=== PATIENT | female | born 1975 | race Caucasian/White ===

== ENCOUNTER 2020-03-10 15:38 | Outpatient (REF) | payer OTHER, SELFPAY ==
--- NOTE | 2020-03-10 | MM_ITS ---
EXAMINATION: MM SCREENING DIGITAL BREAST TOMOSYNTHESIS, BILATERAL CLINICAL INFORMATION: Screening. Asymptomatic. The lifetime risk of breast cancer based on the Tyrer-Cuzick Model is 9%. COMPARISON: Mammography: 07/02/2018, 06/17/2017 TECHNIQUE: Digital breast tomosynthesis is performed in both the craniocaudal and mediolateral oblique views along with computer-aided detection (CAD). Synthesized 2D images are generated from the tomosynthesis. FINDINGS: There are scattered areas of fibroglandular density (ACR BI-RADS breast composition Category b). There are no significant masses, abnormal calcifications, or other abnormalities. The axilla and skin contours are unremarkable. No significant changes. IMPRESSION: No mammographic evidence of malignancy. ASSESSMENT: BI-RADS 1: Negative RECOMMENDATION: Routine annual mammography screening. This patient's information was entered into a reminder system with a target due date for their next mammogram.
[2020-03-11 09:58] LABS: CT PCR NOT DETECTED (Not Detect.); NG PCR NOT DETECTED (Not Detect.)
== END 2020-03-10 15:39 | disposition home or self-care (01) ==
LOC: HO.MAMMO 15:38
PROVIDERS: Obstetrics & Gynecology; PCP Family Medicine; Visit Provider Family Medicine
DX: Z01.419 Encounter for gynecological examination (general) (routine) without abnormal findings (principal); Z12.31 Encounter for screening mammogram for malignant neoplasm of breast; K21.9 Gastro-esophageal reflux disease without esophagitis; J44.9 Chronic obstructive pulmonary disease, unspecified; Z11.3 Encounter for screening for infections with a predominantly sexual mode of transmission
CPT/HCPCS: 36415; 77063; 77067; 78014; 87491; 87591

== ENCOUNTER 2020-03-22 09:40 | Outpatient (REF) | payer OTHER, SELFPAY ==
[2020-03-22 12:14] LABS: Alanine Aminotransferase 20 U/L (0-31); Albumin Level 4.1 g/dL (3.5-5.0); Alkaline Phosphatase 67 U/L (39-117); Aspartate Amino Transferase 13 U/L (5-31); Bilirubin Direct 0.2 mg/dL (0.0-0.5); Bilirubin Total 0.5 mg/dL (0.0-1.0); Cholesterol 267 mg/dL; HDL Cholesterol 37 mg/dL; LDL Cholesterol Calculated 176 mg/dl; Total Protein 6.9 g/dL (6.5-8.0); Triglycerides 271 mg/dL
[2020-03-22 12:27] LABS: TSH reflex Free T4 0.98 mIU/mL (0.32-4.0)
[2020-03-22 15:10] LABS: Anion Gap 12 (12-20); Blood Urea Nitrogen 8 mg/dL (9-16); Calcium 8.9 mg/dL (8.4-10.2); Carbon Dioxide 25 mmol/L (22-29); Chloride 104 mmol/L (96-108); Estimated Glomerular Filt Rate > 60; Glucose Random 101 mg/dL (60-115); Potassium 4.3 mmol/l (3.3-5.1); Sodium 137 mmol/L (135-145)
== END 2020-03-22 09:41 | disposition home or self-care (01) ==
LOC: HO.WFDLDS 09:40
PROVIDERS: Visit Provider Family Medicine
DX: Z13.220 Encounter for screening for lipoid disorders (principal)
CPT/HCPCS: 80053; 80061; 80076; 84443

== ENCOUNTER → 2020-12-07 13:44 | Outpatient (BNVA) | payer OTHER, SELFPAY | PROVIDERS: PCP Family Medicine; Visit Provider Internal Medicine Pulmonary Disease | DX: J44.9 Chronic obstructive pulmonary disease, unspecified (principal) ==

== ENCOUNTER 2020-12-18 19:19 | Emergency (ER) | payer OTHER, SELFPAY ==
--- NOTE | 2020-12-18 | ECG_ITS ---
Test Reason : chest pain Blood Pressure : / mmHG Vent. Rate : 076 BPM Atrial Rate : 076 BPM P-R Int : 128 ms QRS Dur : 084 ms QT Int : 392 ms P-R-T Axes : 054 007 009 degrees QTc Int : 441 ms Normal sinus rhythm Normal ECG No previous ECGs available Referred By: Generic ED Physician Electronically Signed By:Stephan Oliver
--- NOTE | ~2020-12-18 | XR_ITS ---
EXAMINATION: XR CHEST CLINICAL INFORMATION: Chest pain COMPARISON: CT chest 12/10/2019 and 11/18/2018 TECHNIQUE: 2 views of the chest were obtained. FINDINGS: No significant abnormality is noted involving the heart, lungs, mediastinum, bony thorax or soft tissues. Thoracic kyphosis is again seen with mid to lower thoracic vertebral body mild anterior wedging. XR/XR chest 2V IMPRESSION: Unremarkable examination.
[2020-12-18 19:21] VITALS: BP 141/76; PULSE 81; RESP 18; TEMP 36.4; O2SAT 99; BMI 29.2
[2020-12-18 20:38] LABS: Basophils Absolute Auto 0.1 X10*3/uL (0.0-0.2); Basophils Percent Auto 0.5 % (0-2); Eosinophils Absolute Auto 0.3 X10*3/uL (0.0-0.4); Eosinophils Percent Auto 1.7 % (0-4); Hematocrit 38.7 % (37-47); Hemoglobin 13.6 g/dl (12.0-16.0); Imm Gran Abs Auto 0.05 X10*3/uL (0.00-0.03); Imm Gran Pct Auto 0.3 % (0.0-0.4); Lymphocytes Absolute Auto 5.7 X10*3/uL (1.2-4.9); Lymphocytes Percent Auto 35.4 % (20-40); MANUAL DIFF FLAG SCAN; Mean Corpuscular HGB Conc 35.1 g/dl (31.0-35.0); Mean Corpuscular Hemoglobin 32.3 pg (27.0-33.0); Mean Corpuscular Volume 91.9 fL (80-98); Mean Platelet Volume 8.8 fL (9.4-12.3); Monocytes Percent Auto 6.2 % (2-11); Neutrophils Percent Auto 55.9 % (45-73); Platelet Count 392 X10*3/uL (160-400); Red Blood Count 4.21 X10*6/uL (4.20-5.50); Red Cell Distribution Width 12.4 % (11.0-16.0); SCAN SMEAR FLAG 1; White Blood Count 16.1 X10*3/uL (4.8-10.8)
[2020-12-18 20:44] LABS: Prothrombin Time 11.2 SEC (9.9-13.0)
[2020-12-18 20:55] LABS: SLIDE REVIEW VERIFIED
[2020-12-18 20:58] LABS: Anion Gap 14 (12-20); Blood Urea Nitrogen 9 mg/dL (9-16); Calcium 9.3 mg/dL (8.4-10.2); Carbon Dioxide 23 mmol/L (22-29); Chloride 106 mmol/L (96-108); Estimated Glomerular Filt Rate > 60; Glucose Random 92 mg/dL (60-115); Potassium 3.9 mmol/L (3.3-5.1); Sodium 139 mmol/L (135-145)
[2020-12-18 20:59] LABS: Magnesium 2.1 mg/dL (1.6-2.6)
[2020-12-18 21:04] LABS: Troponin-I High Sensitivity < 3.5 ng/L (<3.5-17.0)
--- NOTE | 2020-12-18 22:24 | ED.CHESTPAIN ---
HPI - Chest Pain General Chief Complaint: Chest Pain Stated Complaint: cp Time Seen by Provider: 12/18/20 22:05 Source: patient Mode of arrival: ambulatory Limitations: no limitations History of Present Illness HPI narrative: Patient comes emergency room complaining of intermittent chest pain. Patient states that she had sharp pain, substernal around noon, then again around 17:00. Patient states that between noon and 5 the pain was minimal but was still present. When she was in triage she still had chest discomfort but at this time patient is asymptomatic patient denies shortness of breath at this time, no diaphoresis. Patient denies taking medications/aspirin/nitroglycerin prior to arrival MD complaint: chest pain Related Data Home Medications Medication Instructions Recorded Confirmed epinephrine 0.3 mg/0.3 mL 0.3 mg IM ONCE PRN ea 10/05/20 injection, auto-injector Previous Rx's Medication Instructions Recorded fluoxetine 20 mg capsule 20 mg PO DAILY #30 cap 03/09/20 cyclobenzaprine 10 mg tablet 10 mg PO TID PRN 30 Days #90 tab 03/22/20 atorvastatin 20 mg tablet 20 mg PO DAILY 90 Days #90 tab 05/03/20 azithromycin 250 mg tablet See Rx Instructions PO .COMPLEX 5 12/07/20 Days #6 tab ipratropium 0.5 mg-albuterol 3 mg 3 ml INHALATION Q4-6H PRN 30 Days 12/07/20 (2.5 mg base)/3 mL nebulization #180 ml soln Allergies Allergy/AdvReac Type Severity Reaction Status Date / Time bee pollen [Bee Stings] Allergy Mild ANAPHYLAXIS Verified 12/07/20 13:51 Review of Systems Review of Systems: Constitutional : No Weight loss, No Fever, No Chills, No Night Sweats, No Fatigue, No Malaise ENT/Mouth : No Hearing loss, No Ear Pain, No Nasal Congestion, No Sinus Pain, No Hoarseness, No sore throat, No Rhinorrhea, No Swallowing Difficulty Eyes: No Eye Pain, No Swelling, No Redness, No Foreign Body, No Discharge, No Vision Changes Cardiovascular resolve chest pressure No SOB, No Dyspnea on Exertion, No Orthopnea, No Edema, No Palpitations Respiratory : No Cough, No Sputum, No Wheezing, No Smoke Exposure, No Dyspnea Gastrointestinal : No Nausea, No Vomiting, No Diarrhea, No Constipation, No abdominal Pain, No Hematochezia, No Melena Genitourinary : no irregular bleeding, No Dysuria, No Urinary Frequency, No Hematuria, No Urinary Incontinence, No Urgency, No Flank Pain, No Urinary Flow Changes, No Hesitancy Musculoskeletal : No joint pain, No Myalgias, No Joint Swelling Skin : No Skin Lesions, No rash Neuro : No Weakness, No Numbness, No Paresthesias, No Loss of Consciousness, No Dizziness, No Headache Psych : No Anxiety/Panic, No Depression, No SI/HI/AH/VH, No Social Issues, Heme/Lymph: No Bruising, No Bleeding,No Lymphadenopathy Endocrine : No Polyuria, No Polydipsia, No Temperature Intolerance [facility] Past Medical History Medical History COPD (chronic obstructive pulmonary disease) GERD (gastroesophageal reflux disease) History of depression Hypercholesterolemia Nicotine dependence Surgical History History of bunionectomy of both great toes History of endometrial ablation History of loop electrical excision procedure (LEEP) Hx of tubal ligation Family History Family History Father Hx of myocardial infarction Mother Hx of thyroid cancer Hx of cancer of lung Maternal Grandmother Hx of cancer of lung Maternal Grandfather History of prostate cancer Maternal Aunt Hx of cancer of uterus Paternal Grandmother History of colon cancer Social History Social History Alcohol intake: current Alcohol intake frequency: 3 or more drinks per day Alcohol type: beer Years Smoked: 30 Advance Directives: No Advance Directives Information Provided: No Patient : No Physical Exam Vital Signs: Vital Signs: Last Vital Signs Temp 97.6 F 12/18/20 19: Pulse 81 12/18/20 19: Resp 18 12/18/20 19: BP 141/76 H 12/18/20 19: Pulse Ox 99 12/18/20 19: Body Mass Index 29.2 Appearance: Alert. Oriented X3. No acute distress. Eyes: Pupils equal, round and reactive to light. ENT: Pharynx normal. Neck: Normal inspection. Neck supple. No lymph nodes noted. No crepitus CVS: Normal heart rate and rhythm. Pulses normal. Normal S1 and S2 Respiratory: No respiratory distress. Breath sounds normal. No Wheezing. No rales Abdomen: Soft and nontender. No rigidity. No distention. good BS x4 Skin: Skin warm and dry. Normal skin color. Normal skin turgor. Extremities: No lower extremity edema. No Lacerations. No Rash Neuro: Oriented X 3. No motor deficit. No sensory deficit. Moving all extermities. No slurred speech. Course Course Course Narrative: First troponin was obtained 8-1/2 hours after the onset of the symptoms. At this time, patient is symptomatic, troponin is negative, EKG shows no acute pathology. Per patient she has no cardiac disease history, only asthma and COPD. MDM - Chest Pain Lab Data Result diagrams: 12/18/20 20:30 12/18/20 20:30 Labs: Lab Results 12/18/20 12/18/20 12/18/20 Range/Units 20:30 20:30 20:30 WBC 16.1 H (4.8-10.8) X10*3/uL RBC 4.21 (4.20-5.50) X10*6/uL Hgb 13.6 (12.0-16.0) g/dl Hct 38.7 (37-47) % MCV 91.9 (80-98) fL MCH 32.3 (27.0-33.0) pg MCHC 35.1 H (31.0-35.0) g/dl RDW 12.4 (11.0-16.0) % Plt Count 392 (160-400) X10*3/uL MPV 8.8 L (9.4-12.3) fL Immature Gran % (Auto) 0.3 (0.0-0.4) % Neut % (Auto) 55.9 (45-73) % Lymph % (Auto) 35.4 (20-40) % [place] % (Auto) 6.2 (2-11) % Eos % (Auto) 1.7 (0-4) % Baso % (Auto) 0.5 (0-2) % Lymph # (Auto) 5.7 H (1.2-4.9) X10*3/uL [place] # (Auto) 1.0 (0.1-1.2) X10*3/uL Eos # (Auto) 0.3 (0.0-0.4) X10*3/uL Baso # (Auto) 0.1 (0.0-0.2) X10*3/uL Abs Immat Gran (auto) 0.05 H (0.00-0.03) X10*3/uL Absolute Neuts (auto) 9.0 H (2.0-8.3) X10*3/uL Absolute Nucleated RBC 0.000 (0.0-0.012) X10*3/uL Nucleated RBC % (auto) 0.0 (0.0-0.2) /100WBC Smear Tech's Comments VERIFIED PT 11.2 (9.9-13.0) SEC INR 1.0 (0.9-1.1) Sodium 139 (135-145) mmol/L Potassium 3.9 (3.3-5.1) mmol/L Chloride 106 (96-108) mmol/L Carbon Dioxide 23 (22-29) mmol/L Anion Gap 14 (12-20) BUN 9 (9-16) mg/dL Creatinine 0.77 (0.5-1.4) mg/dL Estim Creat Clear Calc 86.0 Estimated GFR > 60 Random Glucose 92 (60-115) mg/dL Calcium 9.3 (8.4-10.2) mg/dL Magnesium (1.6-2.6) mg/dL Troponin I High Sens (<3.5-17.0) ng/L 12/18/20 12/18/20 Range/Units 20:30 20:30 WBC (4.8-10.8) X10*3/uL RBC (4.20-5.50) X10*6/uL Hgb (12.0-16.0) g/dl Hct (37-47) % MCV (80-98) fL MCH (27.0-33.0) pg MCHC (31.0-35.0) g/dl RDW (11.0-16.0) % Plt Count (160-400) X10*3/uL MPV (9.4-12.3) fL Immature Gran % (Auto) (0.0-0.4) % Neut % (Auto) (45-73) % Lymph % (Auto) (20-40) % [place] % (Auto) (2-11) % Eos % (Auto) (0-4) % Baso % (Auto) (0-2) % Lymph # (Auto) (1.2-4.9) X10*3/uL [place] # (Auto) (0.1-1.2) X10*3/uL Eos # (Auto) (0.0-0.4) X10*3/uL Baso # (Auto) (0.0-0.2) X10*3/uL Abs Immat Gran (auto) (0.00-0.03) X10*3/uL Absolute Neuts (auto) (2.0-8.3) X10*3/uL Absolute Nucleated RBC (0.0-0.012) X10*3/uL Nucleated RBC % (auto) (0.0-0.2) /100WBC Smear Tech's Comments PT (9.9-13.0) SEC INR (0.9-1.1) Sodium (135-145) mmol/L Potassium (3.3-5.1) mmol/L Chloride (96-108) mmol/L Carbon Dioxide (22-29) mmol/L Anion Gap (12-20) BUN (9-16) mg/dL Creatinine (0.5-1.4) mg/dL Estim Creat Clear Calc Estimated GFR Random Glucose (60-115) mg/dL Calcium (8.4-10.2) mg/dL Magnesium 2.1 (1.6-2.6) mg/dL Troponin I High Sens < 3.5 (<3.5-17.0) ng/L Imaging Data Chest x-ray: Radiologist's impression: FINDINGS: No significant abnormality is noted involving the heart, lungs, mediastinum, bony thorax or soft tissues. Thoracic kyphosis is again seen with mid to lower thoracic vertebral body mild anterior wedging. XR/XR chest 2V IMPRESSION: Unremarkable examination. ECG Data ECG #1: Attestation: I personally reviewed and interpreted this ECG as follows: (Sinus rhythm, heart rate 76, nonspecific T-wave inversion in lead 3, no ST segment depression or elevation, QTC 441) Scores Heart Score History: -0- slightly suspicious ECG: -0- normal Age: -0- < or = 45 Risk factory: -1- 1 or 2 risk factors Troponin: -0- < or = normal limit Score: 1 Risk: 1.7% Discharge Plan Discharge Clinical Impression: Atypical chest pain Patient Disposition: Home, Self-Care Instructions: Chest Pain (ED) Additional Instructions: Please follow-up with your primary care physician tomorrow. If you have any worsening or new symptoms, please return to the emergency room or call 911 Prescriptions: No Action epinephrine 0.3 mg/0.3 mL auto-injector 0.3 mg IM ONCE PRNRF: 0 fluoxetine [Prozac] 20 mg capsule 20 mg PO DAILY Qty: 30 RF: 3 cyclobenzaprine 10 mg tablet 10 mg PO TID PRN (Reason: muscle spasm) 30 Days Qty: 90 RF: 1 atorvastatin 20 mg tablet 20 mg PO DAILY 90 Days Qty: 90 RF: 3 azithromycin 250 mg tablet See Rx Instructions PO .COMPLEX 5 Days Qty: 6 RF: 0 ipratropium-albuterol 0.5 mg-3 mg(2.5 mg base)/3 mL solution for nebulization 3 ml inhalation Q4-6H PRN (Reason: wheezing) 30 Days Qty: 180 RF: 6
== END 2020-12-18 22:48 | disposition home or self-care (01) ==
PROVIDERS: Emergency Provider Emergency Medicine
DX: R07.89 Other chest pain (principal); Z79.899 Other long term (current) drug therapy; Z87.891 Personal history of nicotine dependence
CPT/HCPCS: 36415; 71046; 80048; 83735; 84484; 85025; 85610; 93005; 99283

== ENCOUNTER 2020-12-25 12:50 | Outpatient (REF) | payer OTHER, SELFPAY ==
--- NOTE | 2020-12-25 15:17 | PFT_ITS ---
Forced vital capacity and FEV1 are normal. BUW90-86 is only slightly decreased. MVV normal. Post bronchodilator therapy, there is no significant change. Total lung capacity normal and residual volume is also normal. Diffusion capacity normal. CONCLUSION: Normal pulmonary function test. No evidence of obstructive or restrictive pulmonary disorder. MD LAURA Tompkins/DIANEL / [phone]
== END 2020-12-25 12:51 | disposition home or self-care (01) ==
LOC: HO.RESP 12:50
PROVIDERS: Visit Provider Internal Medicine Pulmonary Disease
DX: J44.9 Chronic obstructive pulmonary disease, unspecified (principal)
CPT/HCPCS: 94060; 94727; 94729

== ENCOUNTER 2021-01-18 09:39 | Outpatient (REF) | payer OTHER, SELFPAY ==
--- NOTE | ~2021-01-18 | CT_ITS ---
EXAMINATION: CT CHEST WITHOUT CONTRAST CLINICAL INFORMATION: Sporotrichosis. COMPARISON: Most recent chest radiograph dated 12/18/[address] chest dated 12/10/2019. TECHNIQUE: Multidetector volumetric CT imaging of the chest was done. Axial MIP volume rendering provided. Sagittal and coronal reformatted images were obtained. This CT examination was performed using dose optimization techniques as appropriate, variously including the following: *Automated exposure control *Adjustment of mA and/or kV according to patient size (this includes techniques or standardized protocols for targeted exams where dose is matched to indication/reason for exam; i.e. extremities or head) *Use of iterative reconstruction technique DLP: 140 mGy-cm FINDINGS: CATERING ASSOCIATE: Unremarkable. LUNGS: Redemonstration of diffuse faint bilateral ground-glass opacities, most prominent within the upper lobes and similar when compared to the prior CT. No new large confluent pulmonary nodule, soft tissue mass, or airspace consolidation. The central airways are patent. MEDIASTINUM: No cardiomegaly. No pericardial effusion. No thoracic aortic dilatation. No significant superior mediastinal or hilar lymphadenopathy. PLEURA: There is no pleural effusion. No pleural mass or thickening. AXILLA: No lymphadenopathy. UPPER ABDOMEN: Partially visualized right midpole 0.2 cm renal stone. Otherwise, the visualized upper abdominal structures are unremarkable. OSSEOUS STRUCTURES: Unremarkable. CT/CT chest wo con IMPRESSION: 1. Redemonstration of faint diffuse bilateral ground-glass opacities, similar when compared to the prior CT. Findings may represent respiratory bronchiolitis and can be seen in the setting of an infectious or inflammatory process. 2. No new large pulmonary nodule, mass, or airspace consolidation. 3. No lymphadenopathy.
== END 2021-01-18 09:40 | disposition home or self-care (01) ==
LOC: HO.CT 09:39
PROVIDERS: Visit Provider Internal Medicine Pulmonary Disease
DX: B42.9 Sporotrichosis, unspecified (principal)
CPT/HCPCS: 71250

== ENCOUNTER 2021-03-12 09:42 | Outpatient (REF) | payer OTHER, SELFPAY ==
[2021-03-12 16:47] LABS: CT PCR NOT DETECTED (Not Detect.); NG PCR NOT DETECTED (Not Detect.)
[2021-03-13 10:12] LABS: BV Int Neg Control Negative (Negative); BV Int Pos Control Positive (Positive)
[2021-03-15 17:05] LABS: HPV mRNA E6/E7 rflx Not Detected (Not Detected)
== END 2021-03-12 09:43 | disposition home or self-care (01) ==
LOC: HO.LAB 09:42
PROVIDERS: Advanced Practice Midwife; Visit Provider Advanced Practice Midwife
DX: Z01.419 Encounter for gynecological examination (general) (routine) without abnormal findings (principal); F17.200 Nicotine dependence, unspecified, uncomplicated; Z79.899 Other long term (current) drug therapy; Z20.2 Contact with and (suspected) exposure to infections with a predominantly sexual mode of transmission; Z86.018 Personal history of other benign neoplasm; Z98.890 Other specified postprocedural states; Z98.51 Tubal ligation status; Z71.89 Other specified counseling
CPT/HCPCS: 87480; 87491; 87510; 87591; 87624; 87660; 88142

== ENCOUNTER 2021-03-27 13:14 | Outpatient (REF) | payer OTHER, SELFPAY ==
--- NOTE | ~2021-03-27 | US_ITS ---
EXAMINATION: US PELVIS CLINICAL INFORMATION: History of fibroids. COMPARISON: None TECHNIQUE: Ultrasound of the pelvis is performed using both transabdominal and transvaginal transducers along with Doppler. Transvaginal imaging is performed due to inadequate visualization transabdominally. FINDINGS: Uterus: The uterus is anteverted and anteflexed, it measures 7.7 cm in length, 4.6 cm in AP and 5.7 cm in transverse dimension. The double wall endometrial thickness is 0.7 mm. The uterus is smooth in contour and has normal myometrial echogenicity except for an anechoic cyst in the fundus measuring 1.1 x 0.9 x 0.8 cm in the fundal endometrial canal. This could be secondary to endometrial ablation 12 years ago. No visible fibroid. Adnexa: Both ovaries are visualized. There is normal color flow to the adnexa. There is no ovarian torsion. There is no pelvic ascites or fluid collection. Right ovary measures 3.6 x 2.5 x 2.3 cm and volume 10.8 mL. There is an exophytic versus paraovarian anechoic cyst measuring 1.8 x 1.5 x 1.5 cm. There is additional smaller intrauterine cyst measuring 2.1 x 1.8 x 1.6 cm. Left ovary measures 2.9 x 2.0 x 1.8 cm. There is anechoic corpus luteal cyst measuring 1.6 x 1.3 x 1.0 cm. There is an exophytic versus paraovarian cyst measuring 0.8 x 0.8 x 0.9 cm There is no free fluid in the cul-de-sac. US/US pelvic and transvaginal IMPRESSION: 1. Small fundal endometrial canal focal fluid collection. This could be secondary to old ablation. 2. Corpus luteal cyst left ovary. Bilateral paraovarian or exophytic cysts. There are small bilateral ovarian cysts as well.
== END 2021-03-27 13:15 | disposition home or self-care (01) ==
LOC: HO.US 13:14
PROVIDERS: Visit Provider Advanced Practice Midwife
DX: F17.200 Nicotine dependence, unspecified, uncomplicated (principal); Z98.51 Tubal ligation status; Z98.890 Other specified postprocedural states; Z86.018 Personal history of other benign neoplasm
CPT/HCPCS: 76830; 76856

== ENCOUNTER → 2021-03-29 13:12 | Outpatient (BNVA) | payer OTHER, SELFPAY | PROVIDERS: PCP Family Medicine; Visit Provider Internal Medicine Pulmonary Disease ==

== ENCOUNTER 2021-10-02 11:38 | Outpatient (REF) | payer OTHER, SELFPAY ==
[2021-10-02 14:09] LABS: Alanine Aminotransferase 24 U/L (0-31); Albumin Level 4.2 g/dL (3.5-5.0); Alkaline Phosphatase 62 U/L (39-117); Anion Gap 12 (12-20); Aspartate Amino Transferase 18 U/L (5-31); Bilirubin Total 0.5 mg/dL (0.0-1.0); Blood Urea Nitrogen 8 mg/dL (9-16); Calcium 9.3 mg/dL (8.4-10.2); Carbon Dioxide 24 mmol/L (22-29); Chloride 106 mmol/L (96-108); Estimated Glomerular Filt Rate > 60; Glucose Random 100 mg/dL (60-115); Potassium 4.1 mmol/L (3.3-5.1); Sodium 138 mmol/L (135-145); Total Protein 7.4 g/dL (6.5-8.0)
[2021-10-02 14:30] LABS: TSH reflex Free T4 1.41 uIU/mL (0.32-4.0)
[2021-10-03 03:50] LABS: HBS Num1 186.87 mIU/mL (0-7.99); HBc Num1 0.08 S/CO (0.00-0.79); HBsAGNum1 0.18 S/CO (0.00-0.99); Hepatitis B Core Antibody Nonreactive (Nonreactive); Hepatitis B Surface Antigen Negative (Negative); ~Hepatitis B Surface Antibody REACTIVE (Nonreactive); ~Hepatitis C Antibody Nonreactive (Nonreactive)
[2021-10-04 07:07] LABS: Rubeola IgG (Measles) >300.00 AU/mL
== END 2021-10-02 11:39 | disposition home or self-care (01) ==
LOC: HO.WFDLDS 11:38
PROVIDERS: Visit Provider Family Medicine
DX: Z00.00 Encounter for general adult medical examination without abnormal findings (principal); Z11.3 Encounter for screening for infections with a predominantly sexual mode of transmission; Z71.85 Encounter for immunization safety counseling; F41.8 Other specified anxiety disorders
CPT/HCPCS: 36415; 80053; 84443; 86704; 86706; 86735; 86762; 86765; 86787; 86803; 87340

== ENCOUNTER 2021-11-22 09:07 | Outpatient (REF) | payer OTHER, SELFPAY ==
--- NOTE | ~2021-11-22 | XR_ITS ---
EXAMINATION: XR CHEST CLINICAL INFORMATION: Cough. COMPARISON: None TECHNIQUE: 2 views of the chest were obtained. FINDINGS: The lungs are well-expanded and clear of acute process. The heart size and pulmonary vascularity is normal. There is mild exaggerated thoracic kyphosis dorsolumbar junction. XR/XR chest 2V IMPRESSION: Unremarkable chest examination.
[2021-11-22 15:02] LABS: Influenza A PCR NEGATIVE (Negative); Influenza B PCR NEGATIVE (Negative); Resp Syncy Virus RNA Qual PCR NEGATIVE (Negative); SARS COV2 PCR INHOUSE NEGATIVE (Negative)
== END 2021-11-22 09:08 | disposition home or self-care (01) ==
LOC: HO.XRAY 09:07
PROVIDERS: PCP Family Medicine; Visit Provider Family Medicine
DX: Z20.822 Contact with and (suspected) exposure to COVID-19 (principal); R05.9 Cough, unspecified; F17.200 Nicotine dependence, unspecified, uncomplicated
CPT/HCPCS: 0241U; 71046

== ENCOUNTER 2022-04-18 15:12 | Outpatient (REF) | payer OTHER, SELFPAY ==
--- NOTE | ~2022-04-18 | XR_ITS ---
EXAMINATION: XR CHEST CLINICAL INFORMATION: COPD. COMPARISON: 11/22/2021 chest radiographs. TECHNIQUE: 2 views of the chest were obtained. FINDINGS: No significant abnormality is noted involving the heart, lungs, mediastinum, bony thorax or soft tissues. XR/XR chest 2V IMPRESSION: No acute cardiopulmonary process.
[2022-04-18 15:33] LABS: MANUAL DIFF FLAG NO
[2022-04-18 15:38] LABS: Basophils Absolute Auto 0.1 X10*3/uL (0.0-0.2); Basophils Percent Auto 0.7 % (0-2); Eosinophils Absolute Auto 0.2 X10*3/uL (0.0-0.4); Eosinophils Percent Auto 1.4 % (0-4); Hematocrit 39.6 % (37.0-47.0); Hemoglobin 13.7 g/dl (12.0-16.0); Imm Gran Abs Auto 0.08 X10*3/uL (0.00-0.03); Imm Gran Pct Auto 0.5 % (0.0-0.4); Lymphocytes Absolute Auto 4.9 X10*3/uL (1.2-4.9); Lymphocytes Percent Auto 29.4 % (20-40); Mean Corpuscular HGB Conc 34.6 g/dl (31.0-35.0); Mean Corpuscular Hemoglobin 31.7 pg (27.0-33.0); Mean Corpuscular Volume 91.7 fL (80.0-98.0); Monocytes Absolute Auto 1.2 X10*3/uL (0.1-1.2); Monocytes Percent Auto 7.4 % (2-11); Neutrophils Absolute Auto 10.1 x10*3/uL (2.0-8.3); Neutrophils Percent Auto 60.6 % (45-73); Platelet Count 406 X10*3/uL (160-400); Red Blood Count 4.32 X10*6/uL (4.20-5.50); Red Cell Distribution Width 12.5 % (11.0-16.0); White Blood Count 16.7 X10*3/uL (4.8-10.8)
[2022-04-18 15:43] LABS: Prothrombin Time 11.8 SEC (10.0-13.1)
[2022-04-18 16:16] LABS: Alanine Aminotransferase 31 U/L (0-31); Albumin Level 4.1 g/dL (3.5-5.0); Alkaline Phosphatase 66 U/L (39-117); Anion Gap 18 (12-20); Aspartate Amino Transferase 22 U/L (5-31); Bilirubin Total 0.3 mg/dL (0.0-1.0); Blood Urea Nitrogen 10 mg/dL (9-16); Carbon Dioxide 20 mmol/L (22-29); Chloride 102 mmol/L (96-108); Estimated Glomerular Filt Rate > 60; Glucose Random 85 mg/dL (60-115); Potassium 3.7 mmol/L (3.3-5.1); Rheumatoid Factor < 15.0 IU/mL (<15.0); Sodium 136 mmol/L (135-145)
[2022-04-18 16:20] LABS: Erythrocyte Sedimentation Rate 9 MM/HR (0-20)
[2022-04-22 08:27] LABS: Anti Nuclear Antibody Screen NEGATIVE (NEGATIVE)
[2022-04-22 15:11] LABS: Cyclic Citrullinated Peptide <16 UNITS
[2022-04-22 21:27] LABS: Lyme Abs Screen <0.90 index
== END 2022-04-18 15:13 | disposition home or self-care (01) ==
LOC: HO.LAB 15:12
PROVIDERS: PCP Family Medicine; Visit Provider Family Medicine
DX: Z00.00 Encounter for general adult medical examination without abnormal findings (principal); M79.641 Pain in right hand; M79.642 Pain in left hand; J44.9 Chronic obstructive pulmonary disease, unspecified; R53.83 Other fatigue
CPT/HCPCS: 36415; 71046; 80053; 85025; 85610; 85652; 86038; 86039; 86141; 86200; 86431; 86617; 86618

== ENCOUNTER 2022-09-04 10:43 | Outpatient (REF) | payer OTHER, SELFPAY ==
[2022-09-05 06:25] LABS: CT PCR NOT DETECTED (Not Detect.); NG PCR NOT DETECTED (Not Detect.)
[2022-09-05 09:15] LABS: BV Int Neg Control Negative (Negative); BV Int Pos Control Positive (Positive)
[2022-09-10 05:43] LABS: C. Trachomatis RNA TMA, Throat NOT DETECTED; N. gonorrhoeae RNA TMA, Throat NOT DETECTED
== END 2022-09-04 10:44 | disposition home or self-care (01) ==
LOC: HO.LNP 10:43
PROVIDERS: PCP Family Medicine; Visit Provider Advanced Practice Midwife
DX: J02.9 Acute pharyngitis, unspecified (principal); B00.9 Herpesviral infection, unspecified; Z20.2 Contact with and (suspected) exposure to infections with a predominantly sexual mode of transmission
CPT/HCPCS: 0353U; 87480; 87491; 87510; 87591; 87660

== ENCOUNTER 2023-01-10 09:17 | Outpatient (AMB) | payer OTHER, SELFPAY ==
--- NOTE | 2023-01-10 09:25 | A.OFFPC_ITS ---
Vital Signs 01/10/23 09:27 Height 5 ft 2 in Weight 151 lb 6 oz BMI 27.7 BP 130/78 Blood Pressure Location Lt brachial Position Sitting Pulse 91 Pulse Source Pulse Oximeter Pulse Oximetry (%) 96 Oxygen Delivery Method Room Air Intake Visit Reasons: Growth On Hands/ Med Review Intake Note: Patient is here for a new Anoro prescription, and Prozac, and is concerned about bumps on her hands, and would like referral to public relations analyst for a [facility] in [place]. Allergies bee pollen [Bee Stings] Allergy (Mild, Verified 01/10/23 09:31) ANAPHYLAXIS Medication List - Last Reconciled 01/10/23 by Josse Junior MD albuterol sulfate 90 mcg/actuation (ProAir HFA) 2 puffs inhalation Q4-6H PRN 30 days epinephrine 0.3 mg (0.3 mL) IM ONCE PRN fluconazole (Diflucan) 150 mg PO DAILY 1 dose fluoxetine 20 mg PO DAILY 90 days umeclidinium-vilanterol 62.5-25 mcg/actuation (Anoro Ellipta) 1 inh inhalation Q24H 30 days Tobacco use date assessed: 10/02/21 Dental Screening Dental Screen Date: 01/10/23 Did you have a dental visit in the last 12 months?: No Did you have a dental problem in the last 6 months where you did not have access to dental care?: No Was dental information given to patient?: No HPI Growth On Hands/ Med Review HPI Details 47 y/o female presents today for a med review. Patient is here for a new Anoro prescription, and Prozac, and is concerned about bumps on her hands. She reports hx of carpal tunnel release and reports they had seen bumps in her hands. She reports nodules on the side of her fingers have been growing and has been causing her pain. She is requesting a rheumatology referral. She reports strong family history of lung cancer and reports she smokes 1 ppd. She has been smoking since she was 14 years old. She reports a chronic cough. HPI Comments History of Present Illness Details Documentation assistance for Josse Junior MD, was provided by Giorgio Caceres,? Booth Manager on 01/10/2023 9:53 AM EST. I, Dr. Junior, have read, observed, and verified documentation.? [facility] [place] Medical History COPD (chronic obstructive pulmonary disease) GERD (gastroesophageal reflux disease) History of depression Hypercholesterolemia Nicotine dependence Surgical History History of bunionectomy of both great toes History of endometrial ablation History of loop electrical excision procedure (LEEP) Hx of tubal ligation Family History Father Hx of myocardial infarction Mother Hx of thyroid cancer Hx of cancer of lung Maternal Grandmother Hx of cancer of lung Maternal Grandfather History of prostate cancer Maternal Aunt Hx of cancer of uterus Paternal Grandmother History of colon cancer Other Mental health disorder Social History Housing: House Alcohol intake: current Alcohol intake frequency: a few times a week Alcohol type: beer Patient Tobacco Use Status: Current everyday Tobacco user Tobacco use type: Cigarette Cigarettes Per Day: 6 Years Smoked: 30 Packs per year/per ci.00 e-Cigarette/Vaping Use: Never Used Second Hand Smoke Exposure: No service: No Current occupational status: employed Current occupational exposures/hazards: No Gender identity: Female Cognitive needs: No Hearing needs: No Vision needs: No Female Reproductive History Menstrual Age of Menarche: 14 Questionnaire PHQ-9 Over the last 2 weeks, how often have you been bothered by any of the following problems? 1. Little interest or pleasure in doing things: not at all 2. Feeling down, depressed, or hopeless: not at all 3. Trouble falling or staying asleep, or sleeping too much: not at all 4. Feeling tired or having little energy: not at all 5. Poor appetite or overeating: not at all 6. Feeling bad about yourself - or that you are a failure or have let yourself or your family down: not at all 7. Trouble concentrating on things, such as reading the newspaper or watching television: not at all 8. Moving or speaking so slowly that other people could have noticed. Or the opposite - being so fidgety or restless that you have been moving around a lot more than usual: not at all 9. Thoughts that you would be better off or of hurting yourself in some way: not at all Total score: 0 Source: Developed by Drs. Fernie Nath, Kurt Lawson and colleagues, with an educational selam from [employer]. Thrive Questionnaire I am a: Patient What is your living situation today?: I have a steady place to live Within the past 12 months, did the food you bought not last and you didn't have the money to get more?: Never true Within the past 12 months, did you worry whether your food would run out before you got money to buy more?: Never true Do you have trouble paying for medicines?: No Do you have trouble getting transportation to medical appointments?: No Do you have trouble paying your heating and electricity bill?: No Do you have trouble taking care of your child, family member or friend?: No Do you have trouble with day-to-day activities such as bathing, preparing meals, shopping, managing finances, etc.?: No Are you currently unemployed and looking for a job?: No Are you interested in more education?: No AUDIT C Alcohol Use Questionnaire (AUDIT-C) 1. How often do you have a drink containing alcohol?: 4 or more times a week 2. How many drinks containing alcohol do you have on a typical day when you are drinking?: 3 or 4 3. How often do you have six or more drinks on one occasion?: Never Total Score: 5 ALBIN-7 AMB Questionnaire ALBIN-7 Date ALBIN - 7 assessed: 11/19/21 Feeling nervous, anxious, or on edge: 0 = Not at all Not being able to stop or control worryin = Not at all Worrying too much about different things: 0 = Not at all Trouble relaxin = Not at all Being so restless that it is hard to sit still: 0 = Not at all Becoming easily annoyed or irritable: 0 = Not at all Feeling afraid as if something awful might happen: 0 = Not at all Total ALBIN-7 score (0-4 normal; 5-9 mild; 10-14 moderate; 15-21 severe): 0 Source: Developed by Drs. Fernie Nath, Kurt Lawson and colleagues, with an educational selam from [employer]. ACT Questionnaire In the past 4 weeks, how much of the time did your asthma keep you from getting as much done at work, school or at home?: Some of the time During the past 4 weeks, how often have you had shortness of breath?: Once a day During the past 4 weeks, how often did your asthma symptoms wake you up at night or earlier than usual in the morning?: Not at all During the past 4 weeks, how often have you had to use your rescue inhaler or nebulizer medication?: 1-2 times a week How would you rate your asthma control during the past 4 weeks?: Well controlled Score: 16 Review of Systems Const Denies chills, Denies fatigue, Denies fever(s), Denies headache(s) and Denies weakness ENT Denies dizziness and Denies headache(s) Card Denies chest pain, Denies lightheadedness, Denies dyspnea and Denies other (Palpitations) Resp Reports cough, Denies dyspnea and Denies wheezing Musc Denies numbness and Denies tingling Neuro Denies dizziness, Denies headache(s), Denies numbness, Denies tingling, Denies paresthesias and Denies weakness Psych Denies anxiety and Denies depression Endo Denies fatigue Aller/Immun Denies wheezing Physical exam (Primary Care) Vital Signs: Last Vital Signs Pulse 91 01/10/23 09:27 BP 130/78 01/10/23 09:27 Pulse Ox 96 01/10/23 09:27 Oxygen Delivery Method Room Air 01/10/23 09:27 BMI result Body Mass Index 27.7 Tobacco/Smoking Status: Tobacco use Status Tobacco use date assessed 10/02/21 01/10/23 09:34 Patient Tobacco Use Status Current everyday Tobacco 01/10/23 09:34 Tobacco use type Cigarette 01/10/23 09:34 e-Cigarette/Vaping Use Never Used 01/10/23 09:34 PHQ-9: PHQ-9 Score PHQ-9: Total score 0 01/10/23 09:52 Const General: no acute distress and well developed Nutritional Appearance: well nourished Orientation/consciousness: patient oriented x3 HENMT Head: Yes normocephalic and Yes atraumatic Eyes General: appearance normal, both eyes and all related structures Pupils: Equal, round and reactive pupils present EOM: EOMs intact bilaterally Resp Effort & Inspection: normal respiratory effort Auscultation: clear to auscultation bilaterally Cardio Rate: regular rate Rhythm: regular rhythm Heart sounds: S1 normal heart sound present, S2 normal heart sound present, no gallops, no murmurs and no rubs Neuro General: patient oriented x3 and gait normal Cranial nerves: Yes Equal, round and reactive pupils present Psych Affect: normal affect Assessment and Plan Assessment & Plan (1) Asthma-COPD overlap syndrome: Code(s): J44.9 - Chronic obstructive pulmonary disease, unspecified Plan: Continue albuterol and Anoro Ellipta Encouraged smoking cessation and patient would like to retry Chantix (2) Osteoarthritis: Code(s): M19.90 - Unspecified osteoarthritis, unspecified site Plan: Pain and nodules on fingers of bilateral hands Likely osteoarthritis She can use NSAIDs and topical NSAIDs Referred to rheumatology at her request (3) Cough: Code(s): R05.9 - Cough, unspecified Plan: Smoker with chronic cough. X-ray early this year showed no acute findings. Encouraged smoking cessation. She will let me know if not improving or if worsens. Orders: Referrals Rheumatology Referral M15.1 - Heberden's nodes (with arthropathy), M19.90 - Unspecified osteoarthritis, unspecified site Medications: New varenicline PO PER PKG DIR 53 ea 0RF Changed From albuterol sulfate 90 mcg/actuation (ProAir HFA) 2 puffs inhalation Q4-6H 30 days PRN 8.5 grams 3RF shortness of breath or wheezing To albuterol sulfate 90 mcg/actuation (ProAir HFA) 2 puffs inhalation Q4-6H 90 days PRN 25.5 grams 3RF shortness of breath or wheezing From umeclidinium-vilanterol 62.5-25 mcg/actuation (Anoro Ellipta) 1 inh inhalation Q24H 30 days 60 ea 3RF To umeclidinium-vilanterol 62.5-25 mcg/actuation (Anoro Ellipta) 1 inh inhalation Q24H 90 days 180 ea 3RF Coding Level of Care Code Est Pt Level 4 (32623) Diagnoses Asthma-COPD overlap syndrome J44.9 Osteoarthritis M19.90 Cough R05.9
[2023-01-10 09:27] VITALS: BP 130/78; PULSE 91; O2SAT 96; BMI 27.7
== END 2023-01-10 10:06 | disposition home or self-care (01) ==
PROVIDERS: PCP Family Medicine; Visit Provider Family Medicine
DX: J44.9 Chronic obstructive pulmonary disease, unspecified (principal); M19.90 Unspecified osteoarthritis, unspecified site; R05.9 Cough, unspecified
CPT/HCPCS: 99214

== ENCOUNTER 2023-01-10 15:41 | Outpatient (REF) | payer OTHER, SELFPAY ==
--- NOTE | ~2023-01-10 | MM_ITS ---
EXAMINATION: MM SCREENING DIGITAL BREAST TOMOSYNTHESIS, BILATERAL CLINICAL INFORMATION: Screening. Asymptomatic. The lifetime risk of breast cancer based on the Tyrer-Cuzick Model is 10%. COMPARISON: Mammography: This study is compared with prior exams dating back to 2019. TECHNIQUE: Digital breast tomosynthesis is performed in both the craniocaudal and mediolateral oblique views along with computer-aided detection (CAD). Synthesized 2D images are generated from the tomosynthesis. FINDINGS: There are scattered areas of fibroglandular density (ACR BI-RADS breast composition Category b). There are no significant masses, abnormal calcifications, or other abnormalities. MM/MM tomosynthesis screening BI IMPRESSION: No mammographic evidence of malignancy. ASSESSMENT: BI-RADS BI-RADS 1 - Negative RECOMMENDATION: Routine annual mammography screening. 1 year F/U This examination should not preclude the clinical evaluation of a suspicious palpable abnormality. This patient's information was entered into a reminder system with a target due date for their next mammogram.
== END 2023-01-10 15:42 | disposition home or self-care (01) ==
LOC: HO.MAMMO 15:41
PROVIDERS: Visit Provider Family Medicine
DX: Z12.31 Encounter for screening mammogram for malignant neoplasm of breast (principal)
CPT/HCPCS: 77063; 77067

== ENCOUNTER → 2023-01-10 16:15 | Outpatient (BNV) | payer OTHER, SELFPAY | PROVIDERS: Visit Provider Radiology Diagnostic Radiology | DX: Z12.31 Encounter for screening mammogram for malignant neoplasm of breast (principal) | CPT/HCPCS: 77063; 77067 ==

== ENCOUNTER 2023-02-04 13:29 | Outpatient (REF) | payer OTHER, SELFPAY ==
[2023-02-05 11:43] LABS: CT PCR NOT DETECTED (Not Detect.); NG PCR NOT DETECTED (Not Detect.)
[2023-02-05 14:04] LABS: BV Int Neg Control Negative (Negative); BV Int Pos Control Positive (Positive)
[2023-02-07 21:59] LABS: HPV mRNA E6/E7 rflx Not Detected (Not Detected)
== END 2023-02-04 13:30 | disposition home or self-care (01) ==
LOC: HO.LNP 13:29
PROVIDERS: Visit Provider Advanced Practice Midwife
DX: Z01.419 Encounter for gynecological examination (general) (routine) without abnormal findings (principal); Z11.51 Encounter for screening for human papillomavirus (HPV); Z20.2 Contact with and (suspected) exposure to infections with a predominantly sexual mode of transmission; Z98.890 Other specified postprocedural states
CPT/HCPCS: 0353U; 87480; 87510; 87624; 87660; 88142

== ENCOUNTER 2023-02-04 13:29 | Outpatient (AMB) | payer OTHER, SELFPAY ==
--- NOTE | 2023-02-04 13:21 | A.OFFVIS_ITS ---
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: No Information Interpreted: non-clinical & clinical Professor Of Social Work: Professor Of Social Work Present (Cece COATS) Accompanied by: Self / Same As Patient Allergies bee pollen [Bee Stings] Allergy (Mild, Verified 02/04/23 13:30) ANAPHYLAXIS Medication List - Last Reconciled 02/04/23 by Laly Sanchez CNM albuterol sulfate 90 mcg/actuation (ProAir HFA) 2 puffs inhalation Q4-6H PRN 90 days epinephrine 0.3 mg (0.3 mL) IM ONCE PRN fluoxetine 20 mg PO DAILY 90 days umeclidinium-vilanterol 62.5-25 mcg/actuation (Anoro Ellipta) 1 inh inhalation Q24H 90 days varenicline PO PER PKG DIR Is last menstrual period known: No HPI [facility] annual exam HPI Details 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 She is not having any she specific concerns. She is once again working very hard on quitting smoking she is currently on Chantix and her quit day is scheduled for Friday. She is thinking though that the cravings are still there very much. She just recently had her mammogram. She had multiple procedures to her cervix over the years. She had endometrial ablation so she has not had a period on long time. Also is the 1 question she has is is it normal to be getting dry at her age she still has sexual desire but she is just very dry. [facility] Medical History COPD (chronic obstructive pulmonary disease) GERD (gastroesophageal reflux disease) History of depression Hypercholesterolemia Nicotine dependence Surgical History History of bunionectomy of both great toes History of endometrial ablation History of loop electrical excision procedure (LEEP) Hx of tubal ligation Family History Father Hx of myocardial infarction Mother Hx of thyroid cancer Hx of cancer of lung Maternal Grandmother Hx of cancer of lung Maternal Grandfather History of prostate cancer Maternal Aunt Hx of cancer of uterus Paternal Grandmother History of colon cancer Other Mental health disorder Social History Housing: House Alcohol intake: current Alcohol intake frequency: a few times a week Alcohol type: beer Patient Tobacco Use Status: Current everyday Tobacco user Tobacco use type: Cigarette Cigarettes Per Day: 6 Years Smoked: 30 e-Cigarette/Vaping Use: Never Used Second Hand Smoke Exposure: No service: No Current occupational status: employed Current occupational exposures/hazards: No Gender identity: Female Cognitive needs: No Hearing needs: No Vision needs: No Female Reproductive History Menstrual Age of Menarche: 14 Total pregnancies: 2 Full term: 2 Number of Living Children: 2 Date of last pap smear: 03/13/21 Date of Mammogram: 01/10/23 Physical Exam Vital Signs: Last Vital Signs BP 122/72 02/04/23 13:27 BMI result Body Mass Index 28.0 Const General: healthy appearing, comfortable, no acute distress, well developed and alert Nutritional Appearance: average body habitus Orientation/consciousness: patient oriented x3 Limitations: no limitations HEENT Head: Yes normocephalic Neck Neck: Yes normal visual inspection Chest Chest palpation & inspection: normal inspection of the chest Breast/axilla inspection: normal inspection of the breasts and normal inspection of the axillae Breast/axilla palpation: normal palpation of the breasts and normal palpation of the axillae Resp Effort & Inspection: normal respiratory effort GI Inspection: Yes normal to inspection, No Abdominal wall edema and No distended Palpation (GI): Soft to palpation and nontender Other: Vagina pink barely moist. Cervix difficult to see very posterior appears within normal limits post LEEP but difficult to keep completely in view for the Pap. Efforts with 2 speculums to obtain adequate Pap. Uterus midposition nontender mobile good tone with Kegel adnexa nontender. General: Yes bladder normal to palpation External Female Exam: normal external appearance and normal appearance of the urethra Speculum Exam - Vagina: normal appearance of the vagina, normal palpation and normal vaginal discharge Speculum Exam - Cervix: normal appearance of the cervix, normal palpation and nontender Bimanual exam- vagina & uterus: normal bimanual exam, normal palpation, uterine size normal, bladder normal to palpation, consistency normal, normal palpation, uterine mobility normal, uterine shape normal, No Cervical tenderness present, non-tender and no cervical motion tenderness Bimanual Exam- Adnexa, other: normal adnexae, no masses, normal and No adnexal tenderness Neuro General: patient oriented x3 Assessment & Plan Assessment & Plan (1) Screen for sexually transmitted diseases: Code(s): Z11.3 - Encounter for screening for infections with a predominantly sexual mode of transmission (2) Smoker: Code(s): F17.200 - Nicotine dependence, unspecified, uncomplicated (3) History of loop electrical excision procedure (LEEP): Comment: 03/12/21 pap= neg , neg hpv. Code(s): Z98.890 - Other specified postprocedural states (4) Hx of tubal ligation: Code(s): Z98.51 - Tubal ligation status (5) Nicotine dependence: Code(s): F17.200 - Nicotine dependence, unspecified, uncomplicated (6) History of endometrial ablation: Code(s): Z98.890 - Other specified postprocedural states (7) Women's annual routine gynecological examination: Code(s): Z01.419 - Encounter for gynecological examination (general) (routine) without abnormal findings Plan -----Discussed in this visit the following: healthy balanced diet, regular and consistent exercise, getting recommended health screens, doing the best she can for her particular health concerns, kegel exercises, pap smear screening and followup recommendations, mammography screening and SBE, normal changes in cycles in her life stage--- . Discussed the very real experience of vaginal dryness with perimenopause and menopausal changes. Because of her endometrial ablation it will be difficult to say when she is actually in the full menopausal range however the experiences can last for the quite arrange of years in or different for everyone discussed the use of water-based lubricants and the very real challenges of it. Pap smear done though since last Pap was negative if it turns out that this Pap was inadequate from inadequate sampling we will have a little bit of time before repeating. Doubt any infection full testing was done I wished her luck with the smoking cessation. Discussed healthy diet and weight-bearing exercise and calcium and vitamin-D. Orders: Orders Bacterial Vaginosis Panel Today Z01.419 - Encounter for gynecological examination (general) (routine) without abnormal findings, Z11.3 - Encounter for screening for infections with a predominantly sexual mode of transmission, Z98.890 - Other specified postprocedural states CT NG by PCR Today Z01.419 - Encounter for gynecological examination (general) (routine) without abnormal findings, Z11.3 - Encounter for screening for infections with a predominantly sexual mode of transmission, Z98.890 - Other specified postprocedural states Pap Smear Today Z01.419 - Encounter for gynecological examination (general) (routine) without abnormal findings, Z11.3 - Encounter for screening for infections with a predominantly sexual mode of transmission, Z98.890 - Other specified postprocedural states Coding Level of Care Code Est Pt Prev Care 40-64y(27188) Diagnoses Screen for sexually transmitted diseases Z11.3 Smoker F17.200 History of loop electrical excision procedure (LEEP) Z98.890 Hx of tubal ligation Z98.51 Nicotine dependence F17.200 History of endometrial ablation Z98.890 Women's annual routine gynecological examination Z01.419
[2023-02-04 13:27] VITALS: BP 122/72; BMI 28.0
== END 2023-02-04 14:01 | disposition home or self-care (01) ==
LOC: HO.HWS 13:29
PROVIDERS: Visit Provider Advanced Practice Midwife
DX: Z01.419 Encounter for gynecological examination (general) (routine) without abnormal findings (principal); Z11.3 Encounter for screening for infections with a predominantly sexual mode of transmission; F17.200 Nicotine dependence, unspecified, uncomplicated; Z98.890 Other specified postprocedural states; Z98.51 Tubal ligation status
CPT/HCPCS: 99396

== ENCOUNTER 2023-03-18 10:16 | Day surgery (SDC) | payer OTHER, SELFPAY ==
--- NOTE | 2023-03-14 11:24 | HO.ANESPROP2 ---
Documented by User: Pratibha Abarca NP 03/14/23 11:24 HPI - Anesthesia Eval Consult details Narrative: 47yo F for Upper Endoscopy and Colonoscopy PMFSH Active Problems Active Problems: All Active Problems (Updated 02/04/23 @ 14:20 by Laly Sanchez CNM) Women's annual routine gynecological examination (Acute) [place]'s nodes (Acute) Screen for sexually transmitted diseases (Acute) Recurrent HSV (herpes simplex virus) (Acute) Sore throat (Acute) Pre-op exam (Acute) COPD exacerbation (Acute) Urinary incontinence (Acute) Cough (Acute) Smoker (Acute) Family history of sleep apnea (Acute) Sleep apnea (Acute) Fatigue (Acute) Family history of thyroid cancer (Acute) Screening for colon cancer (Acute) Depression with anxiety (Acute) Bilateral shoulder pain (Acute) Bilateral hand pain (Acute) Bilateral arm pain (Acute) History of uterine fibroid (Acute) 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) Asthma-COPD overlap syndrome (Acute) Neck muscle strain (Acute) Depression (Acute) Encounter for blood test for routine general physical examination (Acute) Hx of tubal ligation (Acute) History of loop electrical excision procedure (LEEP) (Acute) History of endometrial ablation (Acute) COPD (chronic obstructive pulmonary disease) (Acute) Nicotine dependence (Acute) GERD (gastroesophageal reflux disease) (Acute) Hypercholesterolemia (Acute) Past Medical History Medical History History of depression Nicotine dependence GERD (gastroesophageal reflux disease) Hypercholesterolemia COPD (chronic obstructive pulmonary disease) Family History Family History Father Hx of myocardial infarction Mother Hx of thyroid cancer Hx of cancer of lung Maternal Grandmother Hx of cancer of lung Maternal Grandfather History of prostate cancer Maternal Aunt Hx of cancer of uterus Paternal Grandmother History of colon cancer Other Mental health disorder Surgical History Surgical History History of hand surgery History of bunionectomy of both great toes History of loop electrical excision procedure (LEEP) History of endometrial ablation Hx of tubal ligation Social History Social History Housing: House Alcohol intake: current Alcohol intake frequency: holidays/special occasions only Alcohol type: beer Patient Tobacco Use Status: Current everyday Tobacco user Tobacco use type: Cigarette Cigarettes Per Day: 6 Years Smoked: 30 e-Cigarette/Vaping Use: Never Used Second Hand Smoke Exposure: No Are you DNR?: No Advance Directives: No Advance Directives Information Provided: Yes service: No Current occupational status: employed Current occupational exposures/hazards: No Gender identity: Female Cognitive needs: No Hearing needs: No Vision needs: No Meds Allergies Allergy/AdvReac Type Severity Reaction Status Date / Time bee pollen [Bee Stings] Allergy Mild ANAPHYLAXIS Verified 02/04/23 13:30 Home Medications Medication Instructions Recorded Confirmed Last Taken Type epinephrine 0.3 mg/0.3 mL IM ONCE PRN anaphylaxis 03/14/23 03/14/23 Unknown History injection, auto-injector Exam Exam Date and Time: March 14, [id number] Assessment and Plan Assessment Anesthesia Assessment: Chart Reviewed Documented by User: Rudy Alonso MD 03/18/23 11:32 [facility] Past Medical History Medical History History of depression Nicotine dependence GERD (gastroesophageal reflux disease) Hypercholesterolemia COPD (chronic obstructive pulmonary disease) Family History Family History Father Hx of myocardial infarction Mother Hx of thyroid cancer Hx of cancer of lung Maternal Grandmother Hx of cancer of lung Maternal Grandfather History of prostate cancer Maternal Aunt Hx of cancer of uterus Paternal Grandmother History of colon cancer Other Mental health disorder Family history of problems with anesthesia: No Surgical History Surgical History History of hand surgery History of bunionectomy of both great toes History of loop electrical excision procedure (LEEP) History of endometrial ablation Hx of tubal ligation History of Problems with Anesthesia: No Social History Social History Housing: House Alcohol intake: current Alcohol intake frequency: holidays/special occasions only Alcohol type: beer Patient Tobacco Use Status: Current everyday Tobacco user Tobacco use type: Cigarette Cigarettes Per Day: 6 Years Smoked: 30 e-Cigarette/Vaping Use: Never Used Second Hand Smoke Exposure: No Are you DNR?: No Advance Directives: No Advance Directives Information Provided: Yes service: No Current occupational status: employed Current occupational exposures/hazards: No Gender identity: Female Cognitive needs: No Hearing needs: No Vision needs: No Meds Allergies Allergy/AdvReac Type Severity Reaction Status Date / Time bee pollen [Bee Stings] Allergy Mild ANAPHYLAXIS Verified 02/04/23 13:30 Home Medications Medication Instructions Recorded Confirmed Last Taken Type epinephrine 0.3 mg/0.3 mL IM ONCE PRN anaphylaxis 03/14/23 03/14/23 Unknown History injection, auto-injector Exam Airway Mallampati Class: II TM Dist: >3cm Neck ROM: Full Loose/Missing/Broken Teeth: No Assessment and Plan Assessment Anesthesia Assessment: Anesthesia Plan Discussed Final Anesthetic Review Family History of Problems with Anesthesia: No History of Problems with Anesthesia: No NPO: Yes ASA Class: III Final Preanesthetic Review: No Changes in Pt Med Stat, Meds/Allgs Chart Reviewed, Consent Obtained/Reviewed and Anes Risks/Benef Reviewed Patient Risk: Intermediate Procedure Risk: Low Anesthetic Plan Disposition: Standard PACU
[2023-03-18 10:30] VITALS: BP 147/77; PULSE 77; RESP 20; TEMP 36.1; O2SAT 98; BMI 26.7
--- NOTE | 2023-03-18 11:30 | MHC.SHP ---
Pre-Procedural Eval Section A Date of Service: 03/18/23 The patient is an INPATIENT: No Changes since office visit: No Cold of Flu in the past 2 weeks, No New Medical Problems, No Changes in Medication and No Patient answered all questions The History & Physical has been completed within 30 days and I have reviewed it.: Yes Section B Chief Complaint: gerd,screening Allergies: Allergies Allergy/AdvReac Type Severity Reaction Status Date / Time bee pollen [Bee Stings] Allergy Mild ANAPHYLAXIS Verified 02/04/23 13:30 Plan I have reviewed the history and physical and performed a pertinent physical examination on my patient. No changes have occurred unless specified. Time Spent With Patient Time: Total time managing care of this patient today ____ minutes.
[2023-03-18 12:25] VITALS: BP 90/50; PULSE 94; RESP 18; TEMP 36.1; O2SAT 95
--- NOTE | 2023-03-18 12:31 | PM.OP ---
Brief Operative Note Date of Service: 03/18/23 Surgeon: Olegario Cortes MD Anesthesia: MAC Was an Senior Court Office Assistant used for this Procedure?: No Estimated blood loss (mL): 2 Pathology: other Condition: stable Disposition: PACU
[2023-03-18 12:43] VITALS: BP 115/86; PULSE 86; RESP 18; TEMP 36.1; O2SAT 97
== END 2023-03-18 13:08 | disposition home or self-care (01) ==
PROVIDERS: PCP Family Medicine; Visit Provider Internal Medicine Gastroenterology
PROC: (CPT 45378; principal; 2023-03-18 11:20)
DX: Z12.11 Encounter for screening for malignant neoplasm of colon (principal); K62.89 Other specified diseases of anus and rectum; K64.8 Other hemorrhoids; K64.4 Residual hemorrhoidal skin tags; K21.9 Gastro-esophageal reflux disease without esophagitis; K29.60 Other gastritis without bleeding; K20.80 Other esophagitis without bleeding; J44.9 Chronic obstructive pulmonary disease, unspecified; N87.1 Moderate cervical dysplasia; Z79.899 Other long term (current) drug therapy; F17.210 Nicotine dependence, cigarettes, uncomplicated
CPT/HCPCS: 45378; 43239; 88305; 88342

== ENCOUNTER 2023-06-04 10:57 | Outpatient (REF) | payer OTHER, SELFPAY ==
[2023-06-05 12:47] LABS: BV Int Neg Control Negative (Negative); BV Int Pos Control Positive (Positive)
== END 2023-06-04 10:58 | disposition home or self-care (01) ==
LOC: HO.LAB 10:57
PROVIDERS: PCP Family Medicine; Visit Provider Advanced Practice Midwife
DX: N89.8 Other specified noninflammatory disorders of vagina (principal); N95.1 Menopausal and female climacteric states
CPT/HCPCS: 87480; 87510; 87660

== ENCOUNTER 2023-06-04 10:57 | Outpatient (AMB) | payer OTHER, SELFPAY ==
--- NOTE | 2023-06-04 10:59 | A.OFFVIS_ITS ---
Intake Vital Signs 06/04/23 11:00 Height 5 ft 3.5 in Weight 154 lb BMI 26.8 BP 120/80 Intake Visit Reasons: vag dryness Intake Note: pt c/o vaginal dryness, menopausal symtoms Global Compensation Analyst: Global Compensation Analyst Present (Harleen) Allergies bee pollen [Bee Stings] Allergy (Mild, Verified 06/04/23 11:00) ANAPHYLAXIS HPI HPI Comments History of Present Illness Details Patient is here today with concerns that her vaginal area it has been dry or the last multiple months. She also reports mood changes including depression, irritability, and forgetfulness. History of uterine ablation has not had a menses postprocedure. She denies hot flashes. [facility] Medical History History of depression Nicotine dependence GERD (gastroesophageal reflux disease) Hypercholesterolemia COPD (chronic obstructive pulmonary disease) Surgical History History of hand surgery History of bunionectomy of both great toes History of loop electrical excision procedure (LEEP) History of endometrial ablation Hx of tubal ligation Family History Father Hx of myocardial infarction Mother Hx of thyroid cancer Hx of cancer of lung Maternal Grandmother Hx of cancer of lung Maternal Grandfather History of prostate cancer Maternal Aunt Hx of cancer of uterus Paternal Grandmother History of colon cancer Other Mental health disorder Social History Housing: House Alcohol intake: current Alcohol intake frequency: holidays/special occasions only Alcohol type: beer Patient Tobacco Use Status: Current everyday Tobacco user Tobacco use type: Cigarette Cigarettes Per Day: 6 Years Smoked: 30 e-Cigarette/Vaping Use: Never Used Second Hand Smoke Exposure: No service: No Current occupational status: employed Current occupational exposures/hazards: No Gender identity: Female Cognitive needs: No Hearing needs: No Vision needs: No Female Reproductive History Menstrual Age of Menarche: 14 Review of Systems Const All systems reviewed & are unremarkable except as noted in HPI and below Physical Exam Vital Signs: Last Vital Signs BP 120/80 06/04/23 11:00 BMI result Body Mass Index 26.8 Const General: cooperative, healthy appearing and no acute distress Orientation/consciousness: patient oriented x3 GI Inspection: Yes normal to inspection Palpation (GI): Soft to palpation and Other GI palpation findings present (Nontender) Rectal Exam - Female: visual inspection normal General: Yes bladder normal to palpation External Female Exam: normal appearance of the urethra Speculum Exam - Vagina: normal appearance of the vagina, normal palpation and normal vaginal discharge (White, watery) Speculum Exam - Cervix: normal appearance of the cervix and normal palpation Bimanual exam- vagina & uterus: normal bimanual exam, normal palpation, uterine size normal, bladder normal to palpation, normal palpation, uterine shape normal and non-tender Bimanual Exam- Adnexa, other: normal adnexae Neuro General: patient oriented x3 Assessment & Plan Assessment & Plan (1) Vaginal dryness: Code(s): N89.8 - Other specified noninflammatory disorders of vagina (2) Vaginal discharge: Code(s): N89.8 - Other specified noninflammatory disorders of vagina (3) Petty-menopause: Code(s): N95.1 - Menopausal and female climacteric states Plan Discussed Petty versus post menopause. OTC self-help measures. Vaginal lubrication and moisturize products including Replens. Literature recommendations: The wisdom of menopause book, and the use of legitimate web sites for search is on transitioning from Aleksandar to menopausal state. Other options. All of her questions and concerns were addressed to the best of my a bility and shared decision making. She is agreeable to the plan of care. Return to the office in 3 months or p.r.n. patient prefers to call for follow-up. Orders: Orders Bacterial Vaginosis Panel Today N89.8 - Other specified noninflammatory disorders of vagina Coding Level of Care Code Est Pt Level 3 (94345) Diagnoses Vaginal dryness N89.8 Vaginal discharge N89.8 Petty-menopause N95.1
[2023-06-04 11:00] VITALS: BP 120/80; BMI 26.8
== END 2023-06-04 11:42 | disposition home or self-care (01) ==
LOC: HO.HWS 10:57
PROVIDERS: PCP Family Medicine; Visit Provider Advanced Practice Midwife
DX: N89.8 Other specified noninflammatory disorders of vagina (principal); N95.1 Menopausal and female climacteric states
CPT/HCPCS: 99213

== ENCOUNTER 2023-12-09 11:53 | Outpatient (AMB) | payer OTHER, SELFPAY ==
[2023-12-09 12:00] VITALS: BP 120/80; PULSE 84; RESP 14; TEMP 36.6; O2SAT 98; BMI 27.3
--- NOTE | 2023-12-09 12:00 | MHC.PC.OV ---
Vital Signs 12/09/23 12:00 Height 5 ft 3.5 in Weight 156 lb 8 oz BMI 27.3 BP 120/80 Blood Pressure Location Rt brachial Position Sitting Respiration 14 Pulse 84 Pulse Source Pulse Oximeter Temp 97.8 F Temp Source Temporal Artery Scan Pulse Oximetry (%) 98 Oxygen Delivery Method Room Air Intake Visit Reasons: est/ hand surgery pre op Risk Assessor Required: No Accompanied by: Self / Same As Patient Allergies bee pollen [Bee Stings] Allergy (Mild, Verified 12/09/23 12:03) ANAPHYLAXIS Medication List - Last Reconciled 12/09/23 by Areli Love, SCHOOL COMMISSIONER- albuterol sulfate 90 mcg/actuation (ProAir HFA) 2 puffs inhalation Q4-6H PRN 90 days epinephrine IM ONCE PRN fluoxetine 20 mg PO DAILY 90 days umeclidinium-vilanterol 62.5-25 mcg/actuation (Anoro Ellipta) 1 inh inhalation Q24H 90 days Tobacco use date assessed: 12/09/23 Dental Screening Dental Screen Date: 12/09/23 Did you have a dental visit in the last 12 months?: Yes Did you have a dental problem in the last 6 months where you did not have access to dental care?: No Was dental information given to patient?: Patient has dentist HPI HPI Comments History of Present Illness Details 48-year-old female with asthma- COPD overlap, GERD, MDD, hyperlipidemia, nicotine dependence, carpal tunnel syndrome, HSV, obstructive sleep apnea, generalized anxiety disorder Status post bunionectomy of both great toes, endometrial ablation, LEEP, tubal ligation She reports strong family history of lung cancer and reports she smokes 1 ppd. She has been smoking since she was 14 years old. Health Maintenance: ? Colon 03/18/23 ? Mammo 01/10/23 ? DEXA ? PAP 02/05/23 ? Tdap overdue, left before it could be admin. Message sent on the portal to return to get or go to pharmacy. Specialists: Pulmonology SMALL BUSINESS REPRESENTATIVE Rheumatology Here today for preoperative clearance. Surgery Type: removal of lesion of palmar surface R hand Anesthesia Type: General anesthesia Surgeon: Marquez Hill Date: 01/02/24 Any past surgical procedures: yes, several Any complications from anesthesia or in post-op period: none does report requiring updrafts in post-op period but denies any resp decomp or the like. ASA or NSAID Use: none Current smoker: current Alcohol use: 5 days per week no issues w/ withdrawal Drug use: none METs: > 4 climb flight of stairs, golf, walk, yardwork Medical history: Asthma yes COPD yes not well controlled was ffd by pulm but fell out of care, has cough that takes breath away referred back to pulm today Obesity Diabetes denies Testing Labs, EKG and CXR done today Awake alert MMM RRR LS w/ coarse rhonci/crackles RLL, insp wheeze throughout, dim throughout Patient is medically cleared with acceptable risks based on exam today. [facility] Medical History (Updated 12/09/23 @ 14:50 by Areli Love [facility]) Depression with anxiety History of uterine fibroid Bilateral arm pain Bilateral hand pain Bilateral shoulder pain Family history of thyroid cancer Family history of sleep apnea History of depression Nicotine dependence GERD (gastroesophageal reflux disease) Hypercholesterolemia Surgical History History of hand surgery History of bunionectomy of both great toes History of loop electrical excision procedure (LEEP) History of endometrial ablation Hx of tubal ligation Family History Father Hx of myocardial infarction Mother Hx of thyroid cancer Hx of cancer of lung Maternal Grandmother Hx of cancer of lung Maternal Grandfather History of prostate cancer Maternal Aunt Hx of cancer of uterus Paternal Grandmother History of colon cancer Other Mental health disorder Social History Housing: House Alcohol intake: current Alcohol intake frequency: holidays/special occasions only Alcohol type: beer Patient Tobacco Use Status: Current everyday Tobacco user Tobacco use type: Cigarette Cigarette Packs Per Day: 1 Cigarettes Per Day: 12 Years Smoked: 30 e-Cigarette/Vaping Use: Never Used Second Hand Smoke Exposure: No service: Yes Current occupational status: employed 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 Fernie Nath, Nalini Lux, Kurt Knott and colleagues, with an educational selam from [employer]. Physical exam (Primary Care) Vital Signs: Last Vital Signs Temp 97.8 F 12/09/23 12:00 Pulse 84 12/09/23 12:00 Resp 14 12/09/23 12:00 BP 120/80 12/09/23 12:00 Pulse Ox 98 12/09/23 12:00 Oxygen Delivery Method Room Air 12/09/23 12:00 BMI result Body Mass Index 27.3 Tobacco/Smoking Status: Tobacco use Status Tobacco use date assessed 12/09/23 12/09/23 12:05 Patient Tobacco Use Status Current everyday Tobacco 12/09/23 12:05 Tobacco use type Cigarette 12/09/23 12:05 e-Cigarette/Vaping Use Never Used 12/09/23 12:05 Are you ready to quit: No Tobacco cessation counseling provided: Yes Items discussed: Other Relapse Prevention: discussed the importance of a supportive environment, discussed extending NRT, discussed negative mood or depression after quitting, weight gain after smoking is common and discussed dietary, exercise and/or lifestyle changes Number of minutes spent counselin CPT code: 74274 - 4-10 Minutes Office Procedures EKG 70980-[id number], Complete Results Reviewed Results Reviewed: [address] [address] XRay Report Signed Patient: Lisbeth Fitzgerald MR#: [id number] : 1975 Acct:[id number] Age/Sex: 48 / F ADM Date: 12/09/23 Loc: MAT Attending Dr: Areli HENRY Ordering Physician: Areli Love Date of Service: 12/09/23 Procedure(s): XR chest 2V Accession Number(s): [id number] cc: Areli Love~ EXAMINATION: XR CHEST CLINICAL INFORMATION: Difficulty breathing COMPARISON: 04/18/2022 TECHNIQUE: 2 views of the chest were obtained. FINDINGS: Lungs clear. No pleural effusions. Heart and pulmonary vessels normal. Kyphosis at the thoracolumbar junction from chronic anterior wedging. XR/XR chest 2V IMPRESSION: No active disease. Dictated By: Mauricio Booker MD Signed By: <Electronically signed by Mauricio Booker MD in OV> 12/09/23 1343 EKG done today shows normal sinus rhythm Labs done today show a stable CBC, her WBC is 14.3 however this is a longstanding finding on her labs, normal lytes and renal function, hemoglobin A1c 5.6, normal iron profile, normal LFTs, elevated lipid profile, normal B12, normal folate, normal TSH Assessment and Plan Assessment & Plan (1) Pre-op exam: Code(s): Z01.818 - Encounter for other preprocedural examination (2) Asthma-COPD overlap syndrome: Code(s): J44.9 - Chronic obstructive pulmonary disease, unspecified (3) Nicotine dependence: Code(s): F17.200 - Nicotine dependence, unspecified, uncomplicated Qualifiers: Nicotine product type: cigarettes Substance use status: uncomplicated Qualified Code(s): F17.210 - Nicotine dependence, cigarettes, uncomplicated (4) Hypercholesterolemia: Comment: noted on labs today will need to fu with PCP Code(s): E78.00 - Pure hypercholesterolemia, unspecified Plan This note is constructed using voice recognition software. While every effort has been made to ensure accuracy in biblical studies professor, still errors may have been included Sometimes, these errors may affect the content or meaning of the given sentence . Total time spent caring for the patient today was 45 minutes. This includes time spent before the visit reviewing the chart, time spent during the visit, and time spent after the visit on documentation Orders: Orders XR chest 2V Today J44.9 - Chronic obstructive pulmonary disease, unspecified Comprehensive Met. Panel Today Z01.818 - Encounter for other preprocedural examination Hemoglobin A1c Today Z01.818 - Encounter for other preprocedural examination Complete Blood Count no Diff Today Z01.818 - Encounter for other preprocedural examination Lipid Panel Today Z01.818 - Encounter for other preprocedural examination AMB EKG-In Office Today Z01.818 - Encounter for other preprocedural examination IRON PROFILE Today Z01.818 - Encounter for other preprocedural examination Vitamin B12 and Folate Today Z01.818 - Encounter for other preprocedural examination TSH reflex Free T4 Today Z01.818 - Encounter for other preprocedural examination Referrals Pulmonology Referral J44.9 - Chronic obstructive pulmonary disease, unspecified Medications: Changed From epinephrine IM ONCE PRN anaphylaxis To epinephrine 0.3 mL IM ONCE PRN 2 ea 0RF anaphylaxis Refilled epinephrine 0.3 mL IM ONCE PRN 2 ea 0RF anaphylaxis Patient Instructions: Patient is medically cleared with acceptable risks based on exam today. Education Aspirin and NSAIDS should be discontinued one week before surgery to prevent excessive bleeding. If you are a smoker, there is increase risk of post surgical complications. Cessation is encouraged. Follow up with surgeon and all recommendations pre and post operatively. Smoking Cessation How to Quit There are a lot of ways to quit smoking and many resources to help you. Family members, friends, and co-workers may be supportive or encouraging, but to be successful the desire and commitment to quit must be your own. Most people who have been able to successfully quit smoking made at least one unsuccessful attempt in the past. Try not to view past attempts to quit as failures, but rather as learning experiences. Stopping smoking or using smokeless tobacco is difficult, but anyone can do it. Know the symptoms to expect when you stop. Common symptoms include: ? An intense craving for nicotine ? Anxiety, tension, restlessness, frustration, or impatience ? Difficulty concentrating ? Drowsiness or trouble sleeping, as well as bad dreams and nightmares ? Drowsiness and trouble sleeping ? Headaches ? Increased appetite and weight gain ? Irritability or depression How severe your symptoms are depends on how long you smoked and how many cigarettes you smoked each day. Feel ready to quit? ? First and foremost, set a quit date and quit completely on that day. Before your quit date, you may begin reducing your cigarette use. But remember, there is no safe level of cigarette smoking. ? List the reasons why you want to quit. Include both short- and long-term benefits. ? Identify the times you are most likely to smoke. For example, do you tend to smoke when feeling stressed or down? When out at night with friends? While drinking coffee or alcohol? When bored? While driving? Right after a meal or sex? During a work break? While watching TV or playing cards? When you are with other smokers? ? Let all of your friends, family, and co-workers know of your plan to stop smoking and your quit date. Just being aware that they know what you're going through can be helpful, especially when you are grumpy. ? Get rid of all your cigarettes just before the quit date, and clean out anything that smells like smoke, such as clothes and furniture. Make a plan about what you will do instead of smoking at those times when you are most likely to smoke. ? Be as specific as possible. For example, drink tea instead of coffee -- tea may not trigger the desire for a cigarette. Or, take a walk when you feel stressed. ? Remove ashtrays and cigarettes from the car. Place pretzels or hard candies there instead. Pretend-smoke with a straw. ? Find activities that focus your hands and mind but are not taxing or fattening. Computer games, solitaire, knitting, sewing, and crossword puzzles may help. ? If you normally smoke after eating, find other ways to end a meal. Play a tape or CD, eat a piece of fruit, get up and make a phone call, or take a walk (a good distraction that also hastings calories). Make other changes in your lifestyle. ? Change your daily schedule and habits. Eat at different times or eat several small meals instead of three large ones. Sit in a different chair or even a different room. ? Satisfy your oral habits by eating celery or other low-calorie snack, chewing sugarless gum, or sucking on a cinnamon stick. ? Go to public places and restaurants where smoking is prohibited or restricted. ? Eat regular meals and don't eat too much candy or sweet things. ? Get more exercise. Take walks or ride a bike. Exercise helps relieve the urge to smoke. Set short-term quitting goals and reward yourself when you meet them. ? Every day, put the money you normally spend on cigarettes in a jar. Then buy something pleasurable after a period of time. ? Try not to think about all the days ahead you will need to avoid smoking. Take it one day at a time. ? Even one puff or one cigarette will make your desire for more cigarettes even stronger. However, it is normal to make mistakes. So even if you have one cigarette, you don't need to take the next one. Other tips to help you quit smoking and stick to it: ? Enroll in a smoking cessation program (hospitals, health departments, community centers, and work sites often offer programs). Learn about self-hypnosis or other techniques. ? Ask your health care provider about prescription medications that are safe and appropriate for you. ? Find out about nicotine patches, gum, and sprays. The [place] [employer]'s web site -- www.cancer.org -- is an excellent resource for smokers who are trying to quit, and the [employer] [place] [employer] can help some smokers kick the habit. Above all, don't get discouraged if you aren't able to quit smoking the first time. Nicotine addiction is a hard habit to break. Try something different next time. Develop new strategies, and try again. Many people take several attempts to finally kick the habit. Coding Level of Care Code Tele Est Pt Level 5 (54766) Complex EM visit Add On G2211 Diagnoses Pre-op exam Z01.818 Asthma-COPD overlap syndrome J44.9 Cigarette nicotine dependence without complication F17.210 Nicotine product type: cigarettes Substance use status: uncomplicated Hypercholesterolemia E78.00 CPT Codes EKG - CPT: 08713-Arxpilobtwpzkoyaa, Complete ([id number]) Additional Codes Vital Signs *Quality* - CPT code: 49396 - 4-10 Minutes ([id number])
== END 2023-12-09 14:52 | disposition home or self-care (01) ==
PROVIDERS: PCP Family Medicine; Visit Provider Nurse Practitioner Family
DX: J44.9 Chronic obstructive pulmonary disease, unspecified (principal); F17.210 Nicotine dependence, cigarettes, uncomplicated; E78.00 Pure hypercholesterolemia, unspecified; Z01.818 Encounter for other preprocedural examination
CPT/HCPCS: 93000; 99215; G2211

== ENCOUNTER 2023-12-09 13:02 | Outpatient (REF) | payer OTHER, SELFPAY ==
--- NOTE | ~2023-12-09 | XR_ITS ---
EXAMINATION: XR CHEST CLINICAL INFORMATION: Difficulty breathing COMPARISON: 04/18/2022 TECHNIQUE: 2 views of the chest were obtained. FINDINGS: Lungs clear. No pleural effusions. Heart and pulmonary vessels normal. Kyphosis at the thoracolumbar junction from chronic anterior wedging. XR/XR chest 2V IMPRESSION: No active disease.
[2023-12-09 13:37] LABS: Hematocrit 40.5 % (37.0-47.0); Hemoglobin 14.3 g/dl (12.0-16.0); Mean Corpuscular HGB Conc 35.3 g/dl (31.0-35.0); Mean Corpuscular Hemoglobin 32.1 pg (27.0-33.0); Mean Platelet Volume 8.9 fL (9.4-12.3); Platelet Count 414 X10*3/uL (160-400); Red Blood Count 4.45 X10*6/uL (4.20-5.50); Red Cell Distribution Width 12.8 % (11.0-16.0); White Blood Count 14.3 X10*3/uL (4.8-10.8)
[2023-12-09 14:13] LABS: Alanine Aminotransferase 21 U/L (0-31); Albumin Level 4.2 g/dL (3.5-5.0); Alkaline Phosphatase 69 U/L (39-117); Anion Gap 12 (12-20); Aspartate Amino Transferase 16 U/L (5-31); Bilirubin Total 0.4 mg/dL (0.0-1.0); Blood Urea Nitrogen 9 mg/dL (9-16); Calcium 9.5 mg/dL (8.4-10.2); Carbon Dioxide 25 mmol/L (22-29); Chloride 104 mmol/L (96-108); Cholesterol 291 mg/dL (<200); Estimated Glomerular Filt Rate > 60; Glucose Random 112 mg/dL (60-115); HDL Cholesterol 38 mg/dL (>40); Iron 112 mcg/dL (30-160); LDL Cholesterol Calculated 190 mg/dL (<100); Percent Iron Saturation 31 % (15-50); Potassium 3.5 mmol/L (3.3-5.1); Sodium 137 mmol/L (135-145); Total Iron Binding Capacity 366 mcg/dL (228-428); Total Protein 7.4 g/dL (6.5-8.0); Triglycerides 317 mg/dL (<150); Unsaturated Iron Binding 254 ug/dL
[2023-12-09 14:28] LABS: TSH reflex Free T4 1.13 uIU/mL (0.32-4.0)
[2023-12-09 14:33] LABS: Estimated Average Glucose 114 mg/dL; Hemoglobin A1c % 5.6 % (<6.0)
[2023-12-09 14:38] LABS: Folate 15.4 ng/mL (> or = 4.0); Vitamin B12 436 pg/mL (200-900)
== END 2023-12-09 13:03 | disposition home or self-care (01) ==
LOC: HO.XRAY 13:02
PROVIDERS: PCP Nurse Practitioner Family; Visit Provider Nurse Practitioner Family
DX: J44.9 Chronic obstructive pulmonary disease, unspecified (principal); Z01.818 Encounter for other preprocedural examination
CPT/HCPCS: 36415; 71046; 80053; 80061; 82607; 82746; 83036; 83540; 84443; 85027

== ENCOUNTER 2024-01-13 08:55 | Outpatient (REF) | payer OTHER, SELFPAY | END 2024-01-13 08:56 | disposition home or self-care (01) | LOC: HO.MAMMO 08:55 | PROVIDERS: PCP Nurse Practitioner Family; Visit Provider Family Medicine | DX: Z12.31 Encounter for screening mammogram for malignant neoplasm of breast (principal) | CPT/HCPCS: 77063; 77067 ==

== ENCOUNTER → 2024-01-13 09:00 | Outpatient (BNV) | payer OTHER, SELFPAY | PROVIDERS: PCP Nurse Practitioner Family; Visit Provider Radiology Diagnostic Radiology | DX: Z12.31 Encounter for screening mammogram for malignant neoplasm of breast (principal) | CPT/HCPCS: 77063; 77067 ==

== ENCOUNTER 2024-01-27 10:23 | Outpatient (AMB) | payer OTHER, SELFPAY ==
[2024-01-27 10:28] VITALS: BP 122/80; PULSE 80; O2SAT 97; BMI 27.2
--- NOTE | 2024-01-27 10:28 | A.OFFVIS_ITS ---
Vital Signs 01/27/24 10:28 Height 5 ft 3.5 in Weight 156 lb BMI 27.2 BP 122/80 Blood Pressure Location Lt brachial Position Sitting Pulse 80 Pulse Source Doppler Pulse Oximetry (%) 97 Oxygen Delivery Method Room Air Intake Visit Reasons: copd Allergies bee pollen [Bee Stings] Allergy (Mild, Verified 12/09/23 12:03) ANAPHYLAXIS HPI HPI copd: Details: 48-year-old lady, active approximately 20 pack year smoker, followed for underlying? 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 She continues to use Anoro and albuterol MDI with slowly worsening control her symptoms. She denies acute exacerbations. [facility] Medical History (Updated 12/09/23 @ 14:50 by Areli Love [facility]) Depression with anxiety History of uterine fibroid Bilateral arm pain Bilateral hand pain Bilateral shoulder pain Family history of thyroid cancer Family history of sleep apnea History of depression Nicotine dependence GERD (gastroesophageal reflux disease) Hypercholesterolemia Surgical History History of hand surgery History of bunionectomy of both great toes History of loop electrical excision procedure (LEEP) History of endometrial ablation Hx of tubal ligation Family History Father Hx of myocardial infarction Mother Hx of thyroid cancer Hx of cancer of lung Maternal Grandmother Hx of cancer of lung Maternal Grandfather History of prostate cancer Maternal Aunt Hx of cancer of uterus Paternal Grandmother History of colon cancer Other Mental health disorder Social History Housing: House Alcohol intake: current Alcohol intake frequency: holidays/special occasions only Alcohol type: beer Patient Tobacco Use Status: Current everyday Tobacco user Tobacco use type: Cigarette Cigarette Packs Per Day: 1 Cigarettes Per Day: 12 Years Smoked: 30 e-Cigarette/Vaping Use: Never Used Second Hand Smoke Exposure: No service: Yes 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 occupational status: employed 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 Current occupational exposures/hazards: No Gender identity: Female Cognitive needs: No Hearing needs: No Vision needs: No Female Reproductive History Menstrual Age of Menarche: 14 Review of Systems Const Denies daytime sleepiness, Denies excessive sweating, Denies fatigue, Denies fever(s), Denies lethargy, Denies malaise, Denies night sweats, Denies snoring and Denies weight loss Eyes Denies blurry vision and Denies itchy eyes ENT Denies nasal congestion, Denies post nasal drip, Denies sinus pain, Denies sinus pressure and Denies other ( Thrush) Card Denies chest pain, Denies pedal edema, Denies dyspnea, Denies orthopnea and Denies paroxysmal nocturnal dyspnea Resp Denies cough, Denies hemoptysis, Denies excessive phlegm production, Denies dyspnea, Denies snoring and Denies wheezing GI Denies abdominal pain and Denies heartburn Musc Denies myalgias, Denies arthralgias and Denies joint swelling Skin/Breast Denies rash Neuro Denies memory loss and Denies seizure-like activity Psych Denies abnormal sleep pattern, Denies anxiety and Denies memory loss Endo Denies excessive sweating, Denies fatigue and Denies heat intolerance Cisco/Lymph Denies easy bruising Aller/Immun Denies itchy eyes, Denies seasonal rhinorrhea and Denies wheezing Physical Exam Vital Signs: Last Vital Signs Pulse 80 01/27/24 10:28 BP 122/80 01/27/24 10:28 Pulse Ox 97 01/27/24 10:28 Oxygen Delivery Method Room Air 01/27/24 10:28 BMI result Body Mass Index 27.2 Const General: no acute distress and alert Nutritional Appearance: not obese Orientation/consciousness: Other orientation findings ( oriented) HEENT Head: Yes atraumatic Eyes General: appearance normal, both eyes and all related structures Sclerae: sclerae normal EOM: EOMs intact bilaterally Neck Neck: Yes supple Lymphatic: no lymphadenopathy noted Resp Effort & Inspection: normal respiratory effort and no use of accessory muscles Auscultation: clear to auscultation bilaterally Cardio Rate: regular rate Rhythm: regular rhythm Heart sounds: no gallops, no murmurs and no rubs Skin General skin exam: other ( warm) Extrem General: No clubbing, No cyanosis and No edema Assessment & Plan Assessment & Plan (1) Asthma-COPD overlap syndrome: Code(s): J44.9 - Chronic obstructive pulmonary disease, unspecified Category: Medical Plan: Slowly worsening control on Anoro and albuterol. Will add theophylline and duo nebs. Medications: New ipratropium-albuterol 0.5 mg-3 mg(2.5 mg base)/3 mL 3 mL inhalation Q4-6H PRN 270 mL 6RF wheezing theophylline ER 400 mg PO DAILY 30 caps 6RF Refilled umeclidinium-vilanterol 62.5-25 mcg/actuation (Anoro Ellipta) 1 inh inhalation Q24H 180 ea 3RF 90 days Coding Level of Care Code Est Pt Level 3 (43765) Diagnoses Asthma-COPD overlap syndrome J44.9
== END 2024-01-27 11:31 | disposition home or self-care (01) ==
PROVIDERS: PCP Nurse Practitioner Family; Visit Provider Internal Medicine Pulmonary Disease
DX: J44.9 Chronic obstructive pulmonary disease, unspecified (principal)
CPT/HCPCS: 99213

== ENCOUNTER → 2024-01-27 10:23 | Outpatient (BNVA) | payer OTHER, SELFPAY | PROVIDERS: PCP Nurse Practitioner Family; Visit Provider Internal Medicine Pulmonary Disease ==

== ENCOUNTER 2024-01-30 07:57 | Outpatient (RCR) | payer OTHER, SELFPAY | END 2024-03-04 15:17 | disposition home or self-care (01) | LOC: HO.OT 07:57 | PROVIDERS: PCP Nurse Practitioner Family; Visit Provider Orthopaedic Surgery | DX: R22.31 Localized swelling, mass and lump, right upper limb (principal) | CPT/HCPCS: 97110; 97140; 97165 ==

== ENCOUNTER 2024-02-18 11:40 | Outpatient (REF) | payer OTHER, SELFPAY ==
[2024-02-20 13:18] LABS: HPV mRNA E6/E7 Not Detected (Not Detected)
== END 2024-02-18 11:41 | disposition home or self-care (01) ==
LOC: HO.HHCLNP 11:40
PROVIDERS: PCP Nurse Practitioner Family; Visit Provider Advanced Practice Midwife
DX: Z01.419 Encounter for gynecological examination (general) (routine) without abnormal findings (principal)
CPT/HCPCS: 36415; 87624; 88175

== ENCOUNTER 2024-02-18 11:40 | Outpatient (AMB) | payer OTHER, SELFPAY ==
--- NOTE | 2024-02-18 11:40 | MHC.OFFVIS ---
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 Converter Required: No Information Interpreted: clinical only Tricot Knitter: Tricot Knitter Present Allergies bee pollen [Bee Stings] Allergy (Mild, Verified 02/18/24 11:47) ANAPHYLAXIS Medication List - Last Reconciled 02/18/24 by Laly Sanchez CNM albuterol sulfate 90 mcg/actuation (ProAir HFA) 2 puffs inhalation Q4-6H PRN 90 days epinephrine 0.3 mL IM ONCE PRN fluoxetine 20 mg PO DAILY 90 days ipratropium-albuterol 0.5 mg-3 mg(2.5 mg base)/3 mL 3 mL inhalation Q4-6H PRN theophylline ER 400 mg PO DAILY umeclidinium-vilanterol 62.5-25 mcg/actuation (Anoro Ellipta) 1 inh inhalation Q24H 90 days Is last menstrual period known: Yes Last menstrual period: 02/04/24 Do you need a note to return to daycare/school/sports/work: No HPI HPI 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 She has been speaking providers about the alvino menopausal issues she has noticed in has no special concerns whatsoever she gets her regular mammograms. She sees her primary care provider and is getting followed up with everything else. 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 She is sexually active but has no concerns at all about STIs and declines testing. [facility] Medical History Depression with anxiety History of uterine fibroid Bilateral arm pain Bilateral hand pain Bilateral shoulder pain Family history of thyroid cancer Family history of sleep apnea History of depression Nicotine dependence GERD (gastroesophageal reflux disease) Hypercholesterolemia Surgical History History of hand surgery History of bunionectomy of both great toes History of loop electrical excision procedure (LEEP) History of endometrial ablation Hx of tubal ligation Family History Father Hx of myocardial infarction Mother Hx of thyroid cancer Hx of cancer of lung Maternal Grandmother Hx of cancer of lung Maternal Grandfather History of prostate cancer Maternal Aunt Hx of cancer of uterus Paternal Grandmother History of colon cancer Other Mental health disorder Social History Housing: House Alcohol intake: current Alcohol intake frequency: holidays/special occasions only Alcohol type: beer Patient Tobacco Use Status: Current everyday Tobacco user Tobacco use type: Cigarette Cigarette Packs Per Day: 1 Cigarettes Per Day: 12 Years Smoked: 30 e-Cigarette/Vaping Use: Never Used Second Hand Smoke Exposure: No service: Yes Current occupational status: employed 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 Current occupational exposures/hazards: No Gender identity: Female Cognitive needs: No Hearing needs: No Vision needs: No Female Reproductive History Menstrual Age of Menarche: 14 Duration of menses: <3 days Date of last menstrual period: 02/04/24 control method: permanent sterilization Total pregnancies: 2 Full term: 2 Date of last pap smear: 02/04/23 (negative,2020,neg.) History of abnormal pap smear: Yes (LEEp) Date of Mammogram: 01/13/24 (negative) Physical Exam Vital Signs: Last Vital Signs BP 122/70 02/18/24 11:47 BMI result Body Mass Index 27.5 Const General: healthy appearing, comfortable, no acute distress, well developed and alert Nutritional Appearance: average body habitus Orientation/consciousness: patient oriented x3 Limitations: no limitations HEENT Head: Yes normocephalic Neck Neck: Yes normal visual inspection Chest Chest palpation & inspection: normal inspection of the chest Breast/axilla inspection: normal inspection of the breasts and normal inspection of the axillae Breast/axilla palpation: normal palpation of the breasts and normal palpation of the axillae Resp Effort & Inspection: normal respiratory effort GI Inspection: Yes normal to inspection, No Abdominal wall edema and No distended Palpation (GI): Soft to palpation and nontender Other: External exam within normal limits vagina is pink and moist cervix pink moist smooth no abnormal discharge whatsoever vagina moist and rugated uterus small slightly challenging to feel completely but not enlarged nontender no adnexal tenderness good tone with Kegel. General: Yes bladder normal to palpation External Female Exam: normal external appearance and normal appearance of the urethra Speculum Exam - Vagina: normal appearance of the vagina, normal palpation and normal vaginal discharge Speculum Exam - Cervix: normal appearance of the cervix, normal palpation and nontender Bimanual exam- vagina & uterus: normal bimanual exam, normal palpation, uterine size normal, bladder normal to palpation, consistency normal, normal palpation, uterine mobility normal, uterine shape normal, No Cervical tenderness present, non-tender and no cervical motion tenderness Bimanual Exam- Adnexa, other: normal adnexae, no masses, normal and No adnexal tenderness Neuro General: patient oriented x3 Results Reviewed Results Reviewed: Reviewed past visits and passed results Paps negative in 2021 and 2022. Assessment & Plan Assessment & Plan (1) History of loop electrical excision procedure (LEEP): Comment: 03/12/21 pap= neg , neg hpv.; 02/04/2023 Pap is negative with negative HPV. Code(s): Z98.890 - Other specified postprocedural states Category: Surgical (2) History of endometrial ablation: Code(s): Z98.890 - Other specified postprocedural states Category: Surgical (3) Hx of tubal ligation: Code(s): Z98.51 - Tubal ligation status Category: Surgical (4) Smoker: Code(s): F17.200 - Nicotine dependence, unspecified, uncomplicated Category: Social Hx (5) Women's annual routine gynecological examination: Code(s): Z01.419 - Encounter for gynecological examination (general) (routine) without abnormal findings Category: Medical (6) Perimenopause: Code(s): N95.1 - Menopausal and female climacteric states Category: Medical Plan -----Discussed in this visit the following: healthy balanced diet, regular and consistent exercise, getting recommended health screens, doing the best she can for her particular health concerns, kegel exercises, pap smear screening and followup recommendations, mammography screening and SBE, normal changes in cycles in her life stage--- .---Discussed normal changes that happen premenapausally, perimenapausally, and postmenopausally, and ways to handle them. Discussed the normal variation, and the range of experiences that women experience. Discussed nutrition, health, need for exercise, both weight-bearing and aerobic. Also discussed the normal changes that happen with vaginal mucosal thinning and sensitivity, and simple more natural ways of handling these challenges. Coding Level of Care Code Est Pt Prev Care 40-64y(31861) Diagnoses History of loop electrical excision procedure (LEEP) Z98.890 History of endometrial ablation Z98.890 Hx of tubal ligation Z98.51 Smoker F17.200 Women's annual routine gynecological examination Z01.419 Perimenopause N95.1
[2024-02-18 11:47] VITALS: BP 122/70; BMI 27.5
== END 2024-02-18 12:49 | disposition home or self-care (01) ==
LOC: HO.HWSM 11:40
PROVIDERS: PCP Nurse Practitioner Family; Visit Provider Advanced Practice Midwife
DX: Z01.419 Encounter for gynecological examination (general) (routine) without abnormal findings (principal); N95.1 Menopausal and female climacteric states; F17.200 Nicotine dependence, unspecified, uncomplicated
CPT/HCPCS: 99396

== ENCOUNTER 2024-09-29 15:37 | Outpatient (AMB) | payer OTHER, SELFPAY ==
--- NOTE | 2024-09-29 15:48 | MHC.PC.OV ---
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 Required: No Allergies bee pollen [Bee Stings] Allergy (Mild, Verified 09/29/24 15:52) ANAPHYLAXIS Medication List - Last Reconciled 09/29/24 by Josse Junior MD albuterol sulfate 90 mcg/actuation (ProAir HFA) 2 puffs inhalation Q4-6H PRN 90 days epinephrine 0.3 mL IM ONCE PRN fluoxetine 20 mg PO DAILY 90 days ipratropium-albuterol 0.5 mg-3 mg(2.5 mg base)/3 mL 3 mL inhalation Q4-6H PRN pantoprazole (Protonix) 40 mg PO DAILY umeclidinium-vilanterol 62.5-25 mcg/actuation (Anoro Ellipta) 1 inh inhalation Q24H 90 days Tobacco use date assessed: 12/09/23 Dental Screening Dental Screen Date: 12/09/23 HPI having bad headaches HPI Details 49 y/o female presents today with complaints of a headache. Pt notes hx of migraines. Has been taking motren for relief. She describes a migraine with aura on the R side. [facility] Medical History Depression with anxiety History of uterine fibroid Bilateral arm pain Bilateral hand pain Bilateral shoulder pain Family history of thyroid cancer Family history of sleep apnea History of depression Nicotine dependence GERD (gastroesophageal reflux disease) Hypercholesterolemia Surgical History History of hand surgery History of bunionectomy of both great toes History of loop electrical excision procedure (LEEP) History of endometrial ablation Hx of tubal ligation Family History Father Hx of myocardial infarction Mother Hx of thyroid cancer Hx of cancer of lung Maternal Grandmother Hx of cancer of lung Maternal Grandfather History of prostate cancer Maternal Aunt Hx of cancer of uterus Paternal Grandmother History of colon cancer Other Mental health disorder Social History (Reviewed 02/18/24 @ 11:48 by Marylin Portillo [facility]) Housing: House Alcohol intake: current Alcohol intake frequency: holidays/special occasions only Alcohol type: beer Patient Tobacco Use Status: Current everyday Tobacco user Tobacco use type: Cigarette Cigarette Packs Per Day: 1 Cigarettes Per Day: 12 Years Smoked: 30 e-Cigarette/Vaping Use: Never Used Second Hand Smoke Exposure: No service: Yes Current occupational status: employed 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 1. Little interest or pleasure in doing things: not at all 2. Feeling down, depressed, or hopeless: not at all 3. Trouble falling or staying asleep, or sleeping too much: not at all 4. Feeling tired or having little energy: not at all 5. Poor appetite or overeating: not at all 6. Feeling bad about yourself - or that you are a failure or have let yourself or your family down: not at all 7. Trouble concentrating on things, such as reading the newspaper or watching television: not at all 8. Moving or speaking so slowly that other people could have noticed. Or the opposite - being so fidgety or restless that you have been moving around a lot more than usual: not at all 9. Thoughts that you would be better off or of hurting yourself in some way: not at all Total score: 0 Source: Developed by Drs. Fernie Nath, Nalini Lux, Kurt Knott and colleagues, with an educational selam from [employer]. Thrive Questionnaire Date Thrive assessed: 09/29/24 I am a: Patient What is your living situation today?: I have a steady place to live Within the past 12 months, did the food you bought not last and you didn't have the money to get more?: Never true Within the past 12 months, did you worry whether your food would run out before you got money to buy more?: Never true Do you have trouble paying for medicines?: No Do you have trouble getting transportation to medical appointments?: No Do you have trouble paying your heating and electricity bill?: No Do you have trouble taking care of your child, family member or friend?: No Do you have trouble with day-to-day activities such as bathing, preparing meals, shopping, managing finances, etc.?: No Are you currently unemployed and looking for a job?: No Are you interested in more education?: No Please select the resources that you would like help with: None Currently or been in a relationship where the following occur: No concerns reported THRIVE Score: 0 AUDIT C Alcohol Use Questionnaire (AUDIT-C) 1. How often do you have a drink containing alcohol?: 4 or more times a week 2. How many drinks containing alcohol do you have on a typical day when you are drinking?: 3 or 4 3. How often do you have six or more drinks on one occasion?: Monthly Total Score: 7 ALBIN-7 AMB Questionnaire ALBIN-7 Date ALBIN - 7 assessed: 11/19/21 Feeling nervous, anxious, or on edge: 1 = Several days Not being able to stop or control worryin = Not at all Worrying too much about different things: 0 = Not at all Trouble relaxin = Not at all Being so restless that it is hard to sit still: 0 = Not at all Becoming easily annoyed or irritable: 1 = Several days Feeling afraid as if something awful might happen: 0 = Not at all Total ALBIN-7 score (0-4 normal; 5-9 mild; 10-14 moderate; 15-21 severe): 2 Source: Developed by Drs. Fernie Nath, Nalini Lux, Kurt Knott and colleagues, with an educational selam from [employer]. Review of Systems Const Denies chills, Denies fatigue, Denies fever(s), Denies headache(s) and Denies weakness ENT Denies dizziness and Denies headache(s) Card Denies dyspnea Resp Denies cough, Denies dyspnea, Denies wheezing and Denies other (shortness of breath) Musc Denies numbness and Denies tingling Neuro Denies dizziness, Denies headache(s), Denies numbness, Denies tingling and Denies weakness Psych Denies anxiety and Denies depression Endo Denies fatigue Aller/Immun Denies wheezing Physical exam (Primary Care) Vital Signs: Last Vital Signs Temp 98.2 F 09/29/24 15:53 Pulse 92 09/29/24 15:53 Resp 14 09/29/24 15:53 BP 110/68 09/29/24 15:53 Pulse Ox 96 09/29/24 15:53 Oxygen Delivery Method Room Air 09/29/24 15:53 BMI result Body Mass Index 27.5 Tobacco/Smoking Status: Tobacco use Status Tobacco use date assessed 12/09/23 09/29/24 15:50 Patient Tobacco Use Status Current everyday Tobacco 09/29/24 15:50 Tobacco use type Cigarette 09/29/24 15:50 e-Cigarette/Vaping Use Never Used 09/29/24 15:50 PHQ-9: PHQ-9 Score PHQ-9: Total score 0 09/29/24 15:57 Thrive Assessment: Date of Thrive Assessment Date Thrive assessed 09/29/24 09/29/24 15:50 Currently or been in a relationship where the following occur: No concerns reported Const General: well developed; No acute distress Nutritional Appearance: well nourished Orientation/consciousness: patient oriented x3 HENMT Head: Yes normocephalic and Yes atraumatic Eyes General: appearance normal, both eyes and all related structures Pupils: Equal, round and reactive pupils present EOM: EOMs intact bilaterally Resp Effort & Inspection: normal respiratory effort Neuro General: patient oriented x3 and gait normal Cranial nerves: Yes CN's II-XII intact bilaterally and Yes Equal, round and reactive pupils present Psych Affect: normal affect Immunizations Boostrix Tdap 2.5 Lf unit-8 mcg-5 Lf/0.5 mL intramuscular syringe Performing Provider: Josse Junior MD Performing Location: [facility] Administered by: Laly Wise RN on 09/29/24 16:19 Dose Route Admin Location Dispensed Lot Number Expiration Date [facility][NOTE 3] Auto [employer]ic 0.5 mL IM Right Deltoid 0.5 mL [id number] 06/18/26 [id number] NicOx VIS Given Date VIS Provided VIS Publication Date 09/29/24 Single Vaccine 21 Eligibility Eligibility Date Funding Source Not [facility] Eligible 09/29/24 Private Coding Level of Care Code Est Pt Level 3 (11354) Diagnoses Migraine G43.909 Immunization counseling Z71.85 Assessment & Plan Assessment & Plan (1) Migraine: Code(s): G43.909 - Migraine, unspecified, not intractable, without status migrainosus Category: Medical (2) Immunization counseling: Code(s): Z71.85 - Encounter for immunization safety counseling Category: Medical Plan: Due?for?Tdap Ordered Plan Recurrent?severe?right-sided?headaches?with?vision?changes. These?appear?to?be?ocular?migraines?and?she?says?she?has?a?history?of?these?though?she?has?not?had?migraines?in?quite?some?time. Cranial?nerves?2-12?intact No?focal?neurologic?deficits Funduscopic?exam?limits She?can?try?sumatriptan She?can?use?NSAIDs?sparingly Hydrate?well?and?get?plenty?of?sleep Call?or?return?to?office?if?not?improving?or?worsening.??Or?if?requiring?more?than?9 -12?tablets?per?month Orders: Orders TDaP Immunization Today Z23 - Encounter for immunization Medications: New Boostrix Tdap (diphth,pertus(acell),tetanus) 0.5 mL IM ONCE 0.5 mL 0RF NS Z23 - Encounter for immunization sumatriptan succinate take 1 tab at onset of headache; if no relief may repeat 1 tab after at least 2 hrs; max = 4 tabs/24 hr PO 12 tabs 0RF 30 days
[2024-09-29 15:53] VITALS: BP 110/68; PULSE 92; RESP 14; TEMP 36.8; O2SAT 96; BMI 27.5
--- OUTSIDE RECORDS SUMMARY | 2024-09-29 18:14 | XMS_ITS | Clinical Summary ---
Author Organization [facility] ity Address [address] [place] [address] Care Team Providers Care Mechanical Applications Engineer Name Role Phone Bernabe Smith MD Primary Care Provider [phone] Social History Tobacco Use Types Packs/Day Years Used Date Smoking Tobacco: Never Assessed Comments Unknown Sex and Gender Information Value Date Recorded Sex Assigned at Not on file Legal Sex Female 9:31 PM EDT Gender Identity Not on file Sexual Orientation Not on file Plan of Treatment Health Maintenance Due Date Last Done Comments Breast Cancer Screening 1975 DTaP,Tdap,and Td Vaccines (1 - Tdap) 1994 Hepatitis B Vaccines (1 of 3 - 19+ 3-dose series) 1994 Cervical Cancer Screening: P ap Smear 1996 Colorectal Cancer Screening: Colonoscopy 10/26/2021 Depression Screening 10/26/2021 HIV Screening 10/26/2021 Hepatitis C Screening 10/26/2021 Social Influencers of Health Screening 10/26/2021 COVID-19 Vaccine (2023-2 5 season) 2024 Influenza Vaccine (Season Ended) 2025 HIB Vaccines Aged Out No longer eligi ble based on patient's age to complete this topic HPV Vaccines Aged Out No longer eligi ble based on patient's age to complete this topic Hepatitis A Vaccines Aged Out No long er eligible based on patient's age to complete this topic IPV Vaccines Aged Out No longer eligi ble based on patient's age to complete this topic MMR Vaccines Aged Out No longer eligi ble based on patient's age to complete this topic Meningococcal ACWY Vaccine Aged Out N o longer eligible based on patient's age to complete this topic Meningococcal B Vaccine Aged Out No l onger eligible based on patient's age to complete this topic Pneumococcal Vaccine: Pediat rics (0 to 5 Years) and At-Risk Patients (6 to 64 Years) Aged Out No longer eligible b ased on patient's age to complete this topic RSV Immunization Patients Un nelly 20 months Aged Out No longer eligible b ased on patient's age to complete this topic Varicella Vaccines Aged Out No longer eligible based on patient's age to complete this topic Care Teams Mechanical Applications Engineer Relationship Specialty Start Date End Date Bernabe Smith MD [address] [place] [address] PCP - General 01/24/00
--- OUTSIDE RECORDS SUMMARY | 2024-09-29 18:14 | XMS_ITS | Patient Health Record ---
Author Organization [facility] Address [address] [place] [address] Care Team Providers Care Loader Demolder Name Role Phone Josse Junior Primary Care Provider Unavailab Olegario Edge Jr Unavailable [phone] Allergies Allergen (clinical drug ingredient) Drug/Non Drug Allergy documented on EMR Reaction Allergy Type Onset Date Status bee stings (uncoded) anaphylaxis Allergy Active Reason For Referral No Information Medications Medication SIG (Take, Route, Frequency, Duration) Notes Start Date End Date Status EPINEPHrine 0.3 MG/0.3ML Injection for 2 Active Pravastatin Sodium 20mg Active PROzac 20mg Active Pantoprazole Sodium 40 mg TAKE 1 TABLET BY MOUTH ONCE DAILY for 30 Advise pt to schedule appt Active Social History Tobacco Use: Social History Observation Description Date Details (start date - stop date) Current Smoker NA - NA Tobacco Use/Smoking Question Answer Notes Patient is a current smoker How often do you smoke cigarettes? every day How many cigarettes a day do you smoke? 11-20 How soon after you wake up do you smoke your fir st cigarette? 6-30 minutes Are you interested in quitting? Not ready to shila t Alcohol Screen Question Answer Notes Did you have a drink contain ing alcohol in the past year? Yes How often did you have a dri nk containing alcohol in the past year? 4 or more times a week (4 points) How many drinks did you have on a typical day when you were drinking in the past year? 3 or 4 drinks (1 point) How often did you have 6 or more drinks on one occasion in the past year? Never (0 point) Points 5 Interpretation Positive Problems Problem Type SNOMED Code ICD Code Onset Dates Problem Status W/U Status Risk Notes Problem 573474697 Colon cancer screening (Z12.11) Active confirmed Problem Gastroesophageal reflux disease (247263110) Gastroesophageal reflux disease (K21.9) Active confirmed Problem 94367530 Rectal pain (K62.89) Active confirmed Problem Erosive esophagitis (09856170) Erosive esophagitis (K22.10) Active confirmed Problem 865735596 Gastroesophageal reflux disease, unspecified whether esophagitis present (K21.9) Active confirmed Plan Of Treatment Future Test Test Name Order Date COLONOSCOPY 03/26/2012 UPPER GI ENDOSCOPY 02/20/2023 COLONOSCOPY 02/20/2023 Insurance Providers Payer Name Payer Address Payer Phone Subscriber Number Group Number Insured Name Patient Relationship to Insured Coverage Start Date Coverage End Date [employer] [address] [place] [phone] [id number] SIMONA ARGUELLO Self - patient is the insured Medical (General) History Medical History History ICD Code COPD HPV/CIN2 Nephrolithiasis Colonoscopy 03/20, normal including biop sies Surgical History Surgery Date(Month/Year) Endometrial ablation Tubal ligation multple leep & laser surgeries Tendon surgery, trigger finger release
== END 2024-09-29 17:05 ==
LOC: HO.HMCFM 15:37
PROVIDERS: PCP Nurse Practitioner Family; Visit Provider Family Medicine
DX: Z23 Encounter for immunization (principal)

== ENCOUNTER → 2024-09-29 15:37 | Outpatient (BNVA) | payer OTHER, SELFPAY | PROVIDERS: PCP Nurse Practitioner Family; Visit Provider Family Medicine | DX: G43.909 Migraine, unspecified, not intractable, without status migrainosus (principal); Z23 Encounter for immunization; Z71.85 Encounter for immunization safety counseling | CPT/HCPCS: 90471; 90715; 96127 ==

== ENCOUNTER 2024-11-10 11:44 | Outpatient (AMB) | payer OTHER, SELFPAY ==
--- NOTE | 2024-11-10 11:49 | A.OFFPC_ITS ---
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 Required: No Allergies bee pollen [Bee Stings] Allergy (Mild, Verified 11/10/24 11:49) ANAPHYLAXIS Medication List - Last Reconciled 11/10/24 by Areli Love, [facility]- albuterol sulfate 90 mcg/actuation (ProAir HFA) 2 puffs inhalation Q4-6H PRN 90 days epinephrine 0.3 mL IM ONCE PRN fluoxetine 20 mg PO DAILY 90 days ipratropium-albuterol 0.5 mg-3 mg(2.5 mg base)/3 mL 3 mL inhalation Q4-6H PRN pantoprazole (Protonix) 40 mg PO DAILY sumatriptan succinate take 1 tab at onset of headache; if no relief may repeat 1 tab after at least 2 hrs; max = 4 tabs/24 hr PO 30 days umeclidinium-vilanterol 62.5-25 mcg/actuation (Anoro Ellipta) 1 inh inhalation Q 24H 90 days Tobacco use date assessed: 11/10/24 Dental Screening Dental Screen Date: 11/10/24 Did you have a dental visit in the last 12 months?: Yes Did you have a dental problem in the last 6 months where you did not have access to dental care?: No Was dental information given to patient?: Patient has dentist HPI HPI Comments History of Present Illness Details 49-year-old female with asthma- COPD ove rlap, GERD, MDD, hyperlipidemia, nicotine dependence, carpal tunnel syndrome, HSV, obstructive sleep apnea, generalized anxiety disorder Status post bunionectomy of both great toes, endometrial ablation, LEEP, tubal ligation, removal of lesion of palmar surface R hand She reports strong family history of lung cancer and reports she smokes 1 ppd. She has been smoking since she was 14 years old. History of Present Illness - The patient is a 49-year-old female pr esenting with concerns for COPD exacerbation. - Asthma-COPD overlap syndrome causing i ncreased cough, dyspnea, and disrupted sleep. - Intense coughing leading to bruising, arm pain, and recurrent epistaxis, effecting L nares. - Epitaxis can occur w/o cough. No heada ches. Plt and CBC reviewed. + allergy component, not on meds for thi s. coughing causes urinary incont. - Smoking dependence influenced by famil ial history of lung disease. Mom age 55 and MGM age 57 of lung ca. Last CT 2020. 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 Will be going into the [facility] soon and would like Rx for this. - Chronic sinusitis with past fungal allyson g infection treated with long-term medication. - Carpal tunnel syndrome with reduced ma nual dexterity despite surgical interventions. 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 - Lipoma RUQ of abd and lower back, midl ine, bothersome, would like removed. Review of Systems - Respiratory: Reports increased cough, dyspnea, nocturnal coughing without expectoration. Denies decrease oxygen saturation during coughing bouts. - ENT: Reports recurrent epistaxis, prim arily on left side, recurring five times in the past year. Denies sinusitis-related relief with current treatments. - Neurological: Reports numbness and tin gling bilaterally in arms, decreased manual dexterity. - Musculoskeletal: Reports arthritis aff ecting hands, bilateral arm pain associated with coughing. - Hematologic: Reports easy bruising due to pressure changes from coughing. - Behavioral Health: Reports anxiety rel ated to familial history of lung disease, difficulty in smoking cessation. - Allergic/Immunologic: Reports anaphyla ctic reactions to bee stings; uses EpiPens and corticosteroids for management. Physical Exam General: Well developed, well nourished, in no acute distress. Appears stated age. Head: Normocephalic, atraumatic. Eyes: Pupils are equal, round and reactive to light and accommodation. Conjunctivae are clear. Scleras nonicteric Nares: turbinates erythematous bilat, L>R Pharynx erythematous Lungs: Tight, dim. Paroxysmal wheezing cough noted during exam. Barrel chest Heart: Regular rate and rhythm. No murmurs, click, rubs or gallops are noted. Abdomen: RUQ lipoma; lipoma over midline low back Musculoskeletal: Tender over c spine. Pulses: Peripheral pulses are equal and palpable bilaterally. Extremities: No clubbing, cyanosis nor edema is noted. Normal strength. Psych: Mood and affect appropriate. Results - Labs: December 2023 labs show high platele t count and high white blood cell count. Liver enzymes reported to be normal. - Imaging: Last chest CT noted from 2020 with no results provided. Discussion Notes I discussed strategies for managing the patient's COPD exacerbation, including pharmacological interventions and lifestyle adjustments. The risks and benefits of initiating Montelukast for controlling allergic components and inflammation were covered, noting mood effects and stomach upset as potential side effects. We identified the need for Prednisone for the current exacerbation and considered the likelihood of thrush, deciding on fluconazole as a preventative measure. The patient's persistent smoking habit, despite familial lung disease history, was considered a barrier to health, and cessation support options were revisited. We arranged a new updraft machine as part of management. Mental barriers, especially anxiety related to potential lung cancer due to family history, were addressed, and options for early lung cancer screening were discussed and planned for implementation by June. Recommendations regarding ENT evaluation for recurrent epistaxis, considering potential AVMs or other causes, were made. Cervical spine MRI was agreed upon to evaluate bilateral arm paresthesia. General surgical consultation for lipoma excision was arranged. Reinforced the importance of completing the medication regimen and follow-up planning was made for further specialist input. Assessment and Plan 1. Chronic Obstructive Pulmonary Disease (COPD) Exacerbation - Prednisone 50 mg daily for 5 days. - Continue Duoneb nebulizer use. - Start Montelukast therapy. - Fluconazole for thrush prevention. - Plan lung cancer screening in June. - CT of lung - Message sent to Dr Mandujano to apriles t consult. 2. Recurrent Epistaxis - ENT referral initiated. - Apply ice and pressure during episodes . 3. Carpal Tunnel Syndrome and Cervical P aresthesia - Perform MRI of cervical spine. - Await results for potential further re ferral. 4. Smoking Dependence - Reinforce cessation efforts. - Discuss psychological barriers. 5. Allergies and Bee-Sting Reaction - Continue Medrol and EpiPen precautions . 6. Lipoma - Refer to general surgery for removal c onsideration. Patient Instructions - Take Prednisone and Montelukast as dir ected. - Use the nebulizer as prescribed with D uoneb solution. - Apply ice and pressure for nosebleeds. - Attend scheduled ENT and surgery appoi ntments. - Follow up on cervical MRI scheduling. - Seek emergency help if experiencing an allergic reaction. Consent Patient was informed and verbally consented to the use of an ambient scribe for clinic note documentation during this visit. Total time spent caring for the patient today was 70 minutes. This includes time spent before the visit reviewing the chart, time spent during the visit, and time spent after the visit on documentation, reviewing laboratory results, diagnostic imaging, medications, performing a medically necessary evaluation, counseling on diagnoses, care coordination, ordering appropriate tests, ordering appropriate medications, review of tests performed by other providers, reporting test results with the patient, communication with other healthcare providers. [facility] Medical History Depression with anxiety History of uterine fibroid Bilateral arm pain Bilateral hand pain Bilateral shoulder pain Family history of thyroid cancer Family history of sleep apnea History of depression Nicotine dependence GERD (gastroesophageal reflux disease) Hypercholesterolemia Surgical History History of hand surgery History of bunionectomy of both great toes History of loop electrical excision procedure (LEEP) History of endometrial ablation Hx of tubal ligation Family History Father Hx of myocardial infarction Mother Hx of thyroid cancer Hx of cancer of lung Maternal Grandmother Hx of cancer of lung Maternal Grandfather History of prostate cancer Maternal Aunt Hx of cancer of uterus Paternal Grandmother History of colon cancer Other Mental health disorder Social History Housing: House Alcohol intake: current Alcohol intake frequency: holidays/special occasions only Alcohol type: beer Patient Tobacco Use Status: Current everyday Tobacco user Tobacco use type: Cigarette Cigarette Packs Per Day: 1 Cigarettes Per Day: 12 Years Smoked: 30 e-Cigarette/Vaping Use: Never Used Second Hand Smoke Exposure: No service: Yes Current occupational status: employed 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 Current occupational exposures/hazards: No Gender identity: Female Cognitive needs: No Hearing needs: No Vision needs: No Female Reproductive History Menstrual Age of Menarche: 14 Questionnaire Thrive Questionnaire Date Thrive assessed: 04/23/25 I am a: Patient What is your living situation today?: I have a steady place to live Within the past 12 months, did the food you bought not last and you didn't have the money to get more?: Never true Within the past 12 months, did you worry whether your food would run out before you got money to buy more?: Never true Do you have trouble paying for medicines?: No Do you have trouble getting transportation to medical appointments?: No Do you have trouble paying your heating and electricity bill?: No Do you have trouble taking care of your child, family member or friend?: No Do you have trouble with day-to-day activities such as bathing, preparing meals, shopping, managing finances, etc.?: No Are you currently unemployed and looking for a job?: No Are you interested in more education?: No Please select the resources that you would like help with: None Currently or been in a relationship where the following occur: No concerns reported THRIVE Score: 0 ALBIN-7 AMB Questionnaire ALBIN-7 Date ALBIN - 7 assessed: 11/19/21 Source: Developed by Drs. Fernie Nath, Nalini Lux, Kurt Knott and colleagues, with an educational selam from [employer]. Physical exam (Primary Care) Vital Signs: Last Vital Signs Temp 97.2 F 11/10/24 11:52 Pulse 72 11/10/24 11:52 Resp 12 11/10/24 11:52 BP 122/70 11/10/24 11:52 Pulse Ox 97 11/10/24 11:52 Oxygen Delivery Method Room Air 11/10/24 11:52 BMI result Body Mass Index 27.3 Tobacco/Smoking Status: Tobacco use Status Tobacco use date assessed 11/10/24 11/10/24 11:54 Patient Tobacco Use Status Current everyday Tobacco 11/10/24 11:54 Tobacco use type Cigarette 11/10/24 11:54 e-Cigarette/Vaping Use Never Used 11/10/24 11:54 Are you ready to quit: No Tobacco cessation counseling provided: Yes Items discussed: Nicotine replacement, QuitWorks and Other Relapse Prevention: discussed the importance of a supportive environment, discussed extending NRT, discussed negative mood or depression after quitting, weight gain after smoking is common and discussed dietary, exercise and/or lifestyle changes Number of minutes spent counselin CPT code: 97769 - 4-10 Minutes Thrive Assessment: Date of Thrive Assessment Date Thrive assessed 09/29/24 11/10/24 11:54 Currently or been in a relationship where the following occur: No concerns reported Coding Level of Care Code Est Pt Level 5 (60271) Complex EM visit Add On G2211 Diagnoses Epistaxis R04.0 Cigarette nicotine dependence without complication F17.210 Nicotine product type: cigarettes Substance use status: uncomplicated Asthma-COPD overlap syndrome J44.9 Family history of lung cancer Z80.1 Paresthesia of arm R20.2 Neck pain M54.2 ALBIN (generalized anxiety disorder) 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 Lipoma of torso D17.1 Lipoma location: trunk Moderate episode of recurrent major depressive disorder F33.1 Major depression episode severity: moderate CPT Codes [facility] OUTPT/OFFICE VIS - G2212 Additional Codes Vital Signs *Quality* - CPT code: 02796 - 4-10 Minutes ([id number]) Assessment & Plan Assessment & Plan (1) Epistaxis: Code(s): R04.0 - Epistaxis Category: Medical (2) Nicotine dependence: Code(s): F17.200 - Nicotine dependence, unspecified, uncomplicated Category: Medical Qualifiers: Nicotine product type: cigarettes Substance use status: uncomplicated Qualified Code(s): F17.210 - Nicotine dependence, cigarettes, uncomplicated (3) Asthma-COPD overlap syndrome: Code(s): J44.9 - Chronic obstructive pulmonary disease, unspecified Category: Medical (4) Family history of lung cancer: Comment: Mom age 55 ; MGM age 57 Code(s): Z80.1 - Family history of malignant neoplasm of trachea, bronchus and lung Category: Medical (5) Paresthesia of arm: Comment: bilat Code(s): R20.2 - Paresthesia of skin Category: Medical (6) Neck pain: Code(s): M54.2 - Cervicalgia Category: Medical (7) ALBIN (generalized anxiety disorder): Code(s): F41.1 - Generalized anxiety disorder Category: Medical (8) 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 Orders: Orders CT chest wo IV con Today J44.9 - Chronic obstructive pulmonary disease, unspecified, Z80.1 - Family history of malignant neoplasm of trachea, bronchus and lung MR cervical spine wo con Today M54.2 - Cervicalgia, R20.2 - Paresthesia of skin Referrals Lung Cancer Screening Referral F17.210 - Nicotine dependence, cigarettes, uncomplicated, J44.9 - Chronic obstructive pulmonary disease, unspecified, Z80.1 - Family history of malignant neoplasm of trachea, bronchus and lung Ear/Nose/Throat Referral R04.0 - Epistaxis General Surgery Referral D17.9 - Benign lipomatous neoplasm, unspecified Medications: New levocetirizine (Allergy Relief (levocetirizine)) 5 mg PO DAILY 90 tabs 2RF fluconazole take 1 tab day 1, repeat second dose on day 3 150 mg PO Q3D 2 tabs 0RF methylprednisolone (Medrol (Abraham)) PO PER PKG DIR 21 ea 0RF montelukast 10 mg PO BEDTIME 90 tabs 2RF prednisone 50 mg PO DAILY 5 days 5 tabs 0RF Refilled epinephrine 0.3 mL IM ONCE PRN 2 ea 0RF anaphylaxis Patient Instructions: - Take Prednisone and Montelukast as directed. - Use the nebulizer as prescribed with Duoneb solution. - Apply ice and pressure for nosebleeds. - Attend scheduled ENT and surgery appointments. - Follow up on cervical MRI scheduling. - ct Lung - Levocetrizine 5 mg
[2024-11-10 11:52] VITALS: BP 122/70; PULSE 72; RESP 12; TEMP 36.2; O2SAT 97; BMI 27.3
--- OUTSIDE RECORDS SUMMARY | 2024-11-10 12:30 | XMS_ITS | Clinical Summary ---
Author Organization [facility] ity Address [address] [place] [address] Care Team Providers Care Compliance Reviewer Name Role Phone Bernabe Smith MD Primary Care Provider [phone] Social History Tobacco Use Types Packs/Day Years [...] age to complete this topic Care Teams Compliance Reviewer Relationship Specialty Start Date End Date Bernabe Smith MD [address] [place] [address] PCP - General 01/24/00
== END 2024-11-10 12:57 | disposition home or self-care (01) ==
LOC: HO.HMCFM 11:45
PROVIDERS: PCP Nurse Practitioner Family; Visit Provider Nurse Practitioner Family
DX: J44.9 Chronic obstructive pulmonary disease, unspecified (principal); R04.0 Epistaxis; F17.210 Nicotine dependence, cigarettes, uncomplicated; Z80.1 Family history of malignant neoplasm of trachea, bronchus and lung; R20.2 Paresthesia of skin; M54.2 Cervicalgia; F41.1 Generalized anxiety disorder; B42.9 Sporotrichosis, unspecified; D17.1 Benign lipomatous neoplasm of skin and subcutaneous tissue of trunk; F33.1 Major depressive disorder, recurrent, moderate

== ENCOUNTER → 2024-11-10 11:44 | Outpatient (BNVA) | payer OTHER, SELFPAY | PROVIDERS: PCP Nurse Practitioner Family; Visit Provider Nurse Practitioner Family ==

== ENCOUNTER 2024-11-24 11:22 | Outpatient (REF) | payer OTHER, SELFPAY ==
--- NOTE | ~2024-11-24 | CT_ITS ---
EXAMINATION: CT CHEST WITHOUT CONTRAST CLINICAL INFORMATION: Chronic obstructive pulmonary disease, unspecified. COMPARISON: January 18, 2021 TECHNIQUE: Multidetector volumetric CT imaging of the chest was done. Axial MIP volume rendering provided. Sagittal and coronal reformatted images were obtained. This CT examination was performed using dose optimization techniques as appropriate, variously including the following: *Automated exposure control *Adjustment of mA and/or kV according to patient size (this includes techniques or standardized protocols for targeted exams where dose is matched to indication/reason for exam; i.e. extremities or head) *Use of iterative reconstruction technique DLP: 143 mGy centimeter. FINDINGS: CATSHOVEL DRIVER: Kyphotic deformity at the thoracolumbar junction. No hyperinflation. The upper extremities at the both sides of the head. Patient's large body habitus. LUNGS: Pulmonary mosaic pattern, subtle. No bronchiectasis. Honeycombing. Atelectasis lung bases. No gross consolidation. Respiratory where is patent. No gross pulmonary nodules. Minimal bilateral apical lung scarring.. MEDIASTINUM: Nonspecific mildly prominent lymph nodes, mediastinum. No pericardial effusion. No pneumomediastinum. No aneurysm, thoracic aorta. Calcified plaques in the coronary arteries. No hemopericardium. No hemomediastinum. CORONARY ARTERY CALCIFICATION: Calcified plaques, LAD. PLEURA: No pleural effusion. No pneumothorax. No hemothorax. No calcified pleural plaques. AXILLA: No lymphadenopathy. UPPER ABDOMEN: No gross acute findings. OSSEOUS STRUCTURES: Multilevel lower thoracic and upper lumbar spondylosis. Kyphotic deformity apex at T10-11. No acute cortical disruption or gross malalignment. No lytic or blastic lesions. Mild S-shaped curvature of the thoracolumbar spine. CT/CT chest wo IV con IMPRESSION: No acute airspace disease. Subtle pulmonary mosaic pattern. Consider small airway disease versus small pulmonary artery disease. Mild scoliosis and mild to moderate multilevel spondylosis with a kyphotic deformity apex at T10-11. Coronary artery disease.. Fleischner guidelines were followed. Electronically signed by: Devante Kelley MD 11/24/2024 12:06 PM EDT
--- OUTSIDE RECORDS SUMMARY | 2024-11-24 13:17 | XMS_ITS | Clinical Summary ---
Author Organization [facility] ity Address [address] [place] [address] Care Team Providers Care Balance Staff Staker Name Role Phone Bernabe Smith MD Primary Care Provider [phone] Social History Tobacco Use Types Packs/Day Years [...] Cervical Cancer Screening: P ap Smear 1996 COVID-19 Vaccine (2023-2 5 season) 2024 Influenza [...] age to complete this topic Care Teams Balance Staff Staker Relationship Specialty Start Date End Date Bernabe Smith MD [address] [place] [address] PCP - General 01/24/00
== END 2024-11-24 11:23 | disposition home or self-care (01) ==
LOC: HO.CT 11:22
PROVIDERS: PCP Nurse Practitioner Family; Visit Provider Nurse Practitioner Family
DX: J44.9 Chronic obstructive pulmonary disease, unspecified (principal); Z80.1 Family history of malignant neoplasm of trachea, bronchus and lung
CPT/HCPCS: 71250

== ENCOUNTER → 2024-11-24 11:24 | Outpatient (BNV) | payer OTHER, SELFPAY | PROVIDERS: PCP Nurse Practitioner Family; Visit Provider Radiology Diagnostic Radiology | DX: J98.11 Atelectasis (principal) | CPT/HCPCS: 71250 ==

== ENCOUNTER 2024-11-26 14:03 | Outpatient (AMB) | payer OTHER, SELFPAY ==
--- NOTE | 2024-11-26 13:47 | MHC.PC.OV ---
Intake Visit Reasons: review CT scan Intake Note: CT results Supervisor Wrapping Room Required: No Allergies bee pollen (Bee Stings) Allergy (Mild, Verified 11/26/24 15:52) ANAPHYLAXIS Medication List - Last Reconciled 11/26/24 by Areli Love [facility]- albuterol sulfate 90 mcg/actuation (ProAir HFA) 2 puffs inhalation Q4-6H PRN 90 days epinephrine 0.3 mL IM ONCE PRN fluconazole 150 mg PO Q3D 2 doses fluoxetine 20 mg PO DAILY 90 days ipratropium-albuterol 0.5 mg-3 mg(2.5 mg base)/3 mL 3 mL inhalation Q4-6H PRN levocetirizine (Allergy Relief (levocetirizine)) 5 mg PO DAILY montelukast 10 mg PO BEDTIME nebulizer and compressor As directed pantoprazole (Protonix) 40 mg PO DAILY umeclidinium-vilanterol 62.5-25 mcg/actuation (Anoro Ellipta) 1 inh inhalation Q24H 90 days Tobacco use date assessed: 11/10/24 Dental Screening Dental Screen Date: 11/10/24 HPI HPI Comments History of Present Illness Details 49-year-old female with asthma- COPD overlap, GERD, MDD, hyperlipidemia, nicotine dependence (and reports she smokes 1 ppd. She has been smoking since she was 14 years old. ), carpal tunnel syndrome, HSV, obstructive sleep apnea, generalized anxiety disorder Status post bunionectomy of both great toes, endometrial ablation, LEEP, tubal ligation, removal of lesion of palmar surface R hand Fhx: Familial heart disease father mi at 55 of mitral valve issues afib and chf at65 paternal grandfather same Maternal aunt mi stroke , strong family history of lung cancer History of Present Illness - The patient is a 49-year-old female presenting to fu on CT scan results - Coronary artery disease: Dad of [place] age 55, known HLD, chest pain. Was on statins in past, atorvastatin increased LFTS. - Lymphadenopathy: noted on Imaging, nonspecific mediastinal lymph nodes, possibly reactive or inflammatory. She is worried about lymphoma. - Tobacco use disorder: Continues to smoke but attempting to quit. - Breathing is a little better but remains problematic. [facility] Pulm consult scheduled for next month. Abnormal CT chest reviewed, see below. - Would like [facility] for intermittent leave Review of Systems - Cardiovascular: Reports family history of cardiac issues. Denies current chest pain. - Respiratory: Reports past issues with breathing, but no current symptoms. - General: Reports ongoing tobacco use. Denies recent infections. Assessment and Plan 1. Coronary artery disease - Start aspirin therapy 81 mg po QD - Statin - Cardiology referral for further management. [facility] Cards, stat. 2. Hyperlipidemia - Start rosuvastatin 20 mg daily. - Monitor lipid profile and liver function. 3. Lymphadenopathy/Abnormal chest CT - FU with [facility] pulm. Message sent to provider to request sooner appt and review of CT. 4. Tobacco use disorder - Encourage cessation. - Discuss cessation aids if needed. Check labs to include Apos. [place] for [facility] Get me forms, will back date to 11/07/2024 and certify for 6 months. Edu on reasons to seek ED level of care. Offered and declined Nitro. Telehealth Attestation The documentation of this visit was conducted via telehealth and accurately reflects the conversation and clinical decisions made during the encounter. The patient has been explained that this is an interactive (audio/video) telehealth encounter and what that consists of. The patient understands and wishes to proceed. Snatch that Jerky platform was used. Total time spent caring for the patient today was 41 minutes. This includes time spent before the visit reviewing the chart, time spent during the visit, and time spent after the visit on documentation, reviewing laboratory results, diagnostic imaging, medications, performing a medically necessary evaluation, counseling on diagnoses, care coordination, ordering appropriate tests, ordering appropriate medications, review of tests performed by other providers, reporting test results with the patient, communication with other healthcare providers. See below for previous details: History of Present Illness - The patient is a 49-year-old female presenting with concerns for COPD exacerbation. - Asthma-COPD overlap syndrome causing increased cough, dyspnea, and disrupted sleep. - Intense coughing leading to bruising, arm pain, and recurrent epistaxis, effecting L nares. - Epitaxis can occur w/o cough. No headaches. Plt and CBC reviewed. + allergy component, not on meds for this. coughing causes urinary incont. - Smoking dependence influenced by familial history of lung disease. Mom age 55 and MGM age 57 of lung ca. Last CT 2020. 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 Will be going into the [facility] soon and would like Rx for this. - Chronic sinusitis with past fungal lung infection treated with long-term medication. - Carpal tunnel syndrome with reduced manual dexterity despite surgical interventions. - Bilateral arm numbness and tingling, weakness of hands, button cutter, decreased dexterity. - Lipoma RUQ of abd and lower back, midline, bothersome, would like removed. Review of Systems - Respiratory: Reports increased cough, dyspnea, nocturnal coughing without expectoration. Denies decrease oxygen saturation during coughing bouts. - ENT: Reports recurrent epistaxis, primarily on left side, recurring five times in the past year. Denies sinusitis-related relief with current treatments. - Neurological: Reports numbness and tingling bilaterally in arms, decreased manual dexterity. - Musculoskeletal: Reports arthritis affecting hands, bilateral arm pain associated with coughing. - Hematologic: Reports easy bruising due to pressure changes from coughing. - Behavioral Health: Reports anxiety related to familial history of lung disease, difficulty in smoking cessation. - Allergic/Immunologic: Reports anaphylactic reactions to bee stings; uses EpiPens and corticosteroids for management. Physical Exam General: Well developed, well nourished, in no acute distress. Appears stated age. Head: Normocephalic, atraumatic. Eyes: Pupils are equal, round and reactive to light and accommodation. Conjunctivae are clear. Scleras nonicteric Nares: turbinates erythematous bilat, L>R Pharynx erythematous Lungs: Tight, dim. Paroxysmal wheezing cough noted during exam. Barrel chest Heart: Regular rate and rhythm. No murmurs, click, rubs or gallops are noted. Abdomen: RUQ lipoma; lipoma over midline low back Musculoskeletal: Tender over c spine. Pulses: Peripheral pulses are equal and palpable bilaterally. Extremities: No clubbing, cyanosis nor edema is noted. Normal strength. Psych: Mood and affect appropriate. Results - Labs: December 2023 labs show high platelet count and high white blood cell count. Liver enzymes reported to be normal. - Imaging: Last chest CT noted from 2020 with no results provided. Discussion Notes I discussed strategies for managing the patient's COPD exacerbation, including pharmacological interventions and lifestyle adjustments. The risks and benefits of initiating Montelukast for controlling allergic components and inflammation were covered, noting mood effects and stomach upset as potential side effects. We identified the need for Prednisone for the current exacerbation and considered the likelihood of thrush, deciding on fluconazole as a preventative measure. The patient's persistent smoking habit, despite familial lung disease history, was considered a barrier to health, and cessation support options were revisited. We arranged a new updraft machine as part of management. Mental barriers, especially anxiety related to potential lung cancer due to family history, were addressed, and options for early lung cancer screening were discussed and planned for implementation by June. Recommendations regarding ENT evaluation for recurrent epistaxis, considering potential AVMs or other causes, were made. Cervical spine MRI was agreed upon to evaluate bilateral arm paresthesia. General surgical consultation for lipoma excision was arranged. Reinforced the importance of completing the medication regimen and follow-up planning was made for further specialist input. Assessment and Plan 1. Chronic Obstructive Pulmonary Disease (COPD) Exacerbation - Prednisone 50 mg daily for 5 days. - Continue Duoneb nebulizer use. - Start Montelukast therapy. - Fluconazole for thrush prevention. - Plan lung cancer screening in June. - CT of lung - Message sent to Dr Mandujano to request consult. 2. Recurrent Epistaxis - ENT referral initiated. - Apply ice and pressure during episodes. 3. Carpal Tunnel Syndrome and Cervical Paresthesia - Perform MRI of cervical spine. - Await results for potential further referral. 4. Smoking Dependence - Reinforce cessation efforts. - Discuss psychological barriers. 5. Allergies and Bee-Sting Reaction - Continue Medrol and EpiPen precautions. 6. Lipoma - Refer to general surgery for removal consideration. Patient Instructions - Take Prednisone and Montelukast as directed. - Use the nebulizer as prescribed with Duoneb solution. - Apply ice and pressure for nosebleeds. - Attend scheduled ENT and surgery appointments. - Follow up on cervical MRI scheduling. - Seek emergency help if experiencing an allergic reaction. [facility] Medical History Depression with anxiety History of uterine fibroid Bilateral arm pain Bilateral hand pain Bilateral shoulder pain Family history of thyroid cancer Family history of sleep apnea History of depression Nicotine dependence GERD (gastroesophageal reflux disease) Hypercholesterolemia Surgical History History of hand surgery History of bunionectomy of both great toes History of loop electrical excision procedure (LEEP) History of endometrial ablation Hx of tubal ligation Family History Father Hx of myocardial infarction Mother Hx of thyroid cancer Hx of cancer of lung Maternal Grandmother Hx of cancer of lung Maternal Grandfather History of prostate cancer Maternal Aunt Hx of cancer of uterus Paternal Grandmother History of colon cancer Other Mental health disorder Social History (Updated 11/26/24 @ 13:55 by Siomara Brennan CMA) Housing: House Alcohol intake: current Alcohol intake frequency: holidays/special occasions only Alcohol type: beer Patient Tobacco Use Status: Current everyday Tobacco user Tobacco use type: Cigarette Cigarette Packs Per Day: 1 Cigarettes Per Day: 12 Years Smoked: 30 e-Cigarette/Vaping Use: Never Used Second Hand Smoke Exposure: No service: Yes Current occupational status: employed 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 How often do you have a drink containing alcohol?: 4 or more times a week 2. How many drinks containing alcohol do you have on a typical day when you are drinking?: 5 or 6 3. How often do you have six or more drinks on one occasion?: Never Total Score: 6 ALBIN-7 AMB Questionnaire ALBIN-7 Date ALBIN - 7 assessed: 11/19/21 Source: Developed by Drs. Fernie Nath, Nalini Lux, Kurt Knott and colleagues, with an educational selam from [employer]. Physical exam (Primary Care) Tobacco/Smoking Status: Tobacco use Status Tobacco use date assessed 11/10/24 11/26/24 13:53 Patient Tobacco Use Status Current everyday Tobacco 11/26/24 13:55 Tobacco use type Cigarette 11/26/24 13:55 e-Cigarette/Vaping Use Never Used 11/26/24 13:55 Thrive Assessment: Date of Thrive Assessment Date Thrive assessed 09/29/24 11/26/24 13:53 Telehealth Telehealth [facility] Location of provider rendering services: practice address Location of patient: other ([place]) Patient Identification confirmed using: Name, : Yes Telehealth method: voice only Patient verbally consented to treatment: Yes Patient verbally consented to billing insurance company: Yes Patient informed of any privacy concerns related to visit: Yes Minutes spent on Phone/Video with Pt.: 20 Results Reviewed Results Reviewed: Attending Dr: Areli HENRY Ordering Physician: Areli Love Date of Service: 11/24/24 Procedure(s): CT chest wo IV con Accession Number(s): [id number] cc: Areli Love~ Report Number: [id number]: Total DLP = 143.00 mGy-cm EXAMINATION: CT CHEST WITHOUT CONTRAST CLINICAL INFORMATION: Chronic obstructive pulmonary disease, unspecified. COMPARISON: January 18, 2021 TECHNIQUE: Multidetector volumetric CT imaging of the chest was done. Axial MIP volume rendering provided. Sagittal and coronal reformatted images were obtained. This CT examination was performed using dose optimization techniques as appropriate, variously including the following: *Automated exposure control *Adjustment of mA and/or kV according to patient size (this includes techniques or standardized protocols for targeted exams where dose is matched to indication/reason for exam; i.e. extremities or head) *Use of iterative reconstruction technique DLP: 143 mGy centimeter. FINDINGS: INFORMATION TECHNOLOGY ADMINISTRATOR: Kyphotic deformity at the thoracolumbar junction. No hyperinflation. The upper extremities at the both sides of the head. Patient's large body habitus. LUNGS: Pulmonary mosaic pattern, subtle. No bronchiectasis. Honeycombing. Atelectasis lung bases. No gross consolidation. Respiratory where is patent. No gross pulmonary nodules. Minimal bilateral apical lung scarring.. MEDIASTINUM: Nonspecific mildly prominent lymph nodes, mediastinum. No pericardial effusion. No pneumomediastinum. No aneurysm, thoracic aorta. Calcified plaques in the coronary arteries. No hemopericardium. No hemomediastinum. CORONARY ARTERY CALCIFICATION: Calcified plaques, LAD. PLEURA: No pleural effusion. No pneumothorax. No hemothorax. No calcified pleural plaques. AXILLA: No lymphadenopathy. UPPER ABDOMEN: No gross acute findings. OSSEOUS STRUCTURES: Multilevel lower thoracic and upper lumbar spondylosis. Kyphotic deformity apex at T10-11. No acute cortical disruption or gross malalignment. No lytic or blastic lesions. Mild S-shaped curvature of the thoracolumbar spine. CT/CT chest wo IV con IMPRESSION: No acute airspace disease. Subtle pulmonary mosaic pattern. Consider small airway disease versus small pulmonary artery disease. Mild scoliosis and mild to moderate multilevel spondylosis with a kyphotic deformity apex at T10-11. Coronary artery disease.. Fleischner guidelines were followed. Electronically signed by: Devante Kelley MD 11/24/2024 12:06 PM EDT RP Dictated By: Devante Solis MD Coding Level of Care Code Tele Est Pt Level 5 (92615) Complex EM visit Add On G2211 Diagnoses Coronary artery disease of [place] artery of [place] heart with stable angina pectoris I25.118 Coronary Disease-Associated Artery/Lesion type: [place] artery [place] vs. transplanted heart: [place] heart Associated angina: with stable angina Abnormal CT lung screening R91.8 Hypercholesterolemia E78.00 Cigarette nicotine dependence without complication F17.210 Nicotine product type: cigarettes Substance use status: uncomplicated Family history of [place] (myocardial infarction) Z82.49 Assessment & Plan Assessment & Plan (1) CAD (coronary artery disease): Code(s): I25.10 - Atherosclerotic heart disease of [place] coronary artery without angina pectoris Category: Medical Qualifiers: Coronary Disease-Associated Artery/Lesion type: [place] artery [place] vs. transplanted heart: [place] heart Associated angina: with stable angina Qualified Code(s): I25.118 - Atherosclerotic heart disease of [place] coronary artery with other forms of angina pectoris (2) Abnormal CT lung screening: Comment: LUNGS: Pulmonary mosaic pattern, subtle. No bronchiectasis. Honeycombing. Atelectasis lung bases. No gross consolidation. Respiratory where is patent. No gross pulmonary nodules. Minimal bilateral apical lung scarring.. MEDIASTINUM: Nonspecific mildly prominent lymph nodes, mediastinum. No pericardial effusion. No pneumomediastinum. No aneurysm, thoracic aorta. Calcified plaques in the coronary arteries. No hemopericardium. No hemomediastinum. CORONARY ARTERY CALCIFICATION: Calcified plaques, LAD. PLEURA: No pleural effusion. No pneumothorax. No hemothorax. No calcified pleural plaques. AXILLA: No lymphadenopathy. UPPER ABDOMEN: No gross acute findings. OSSEOUS STRUCTURES: Multilevel lower thoracic and upper lumbar spondylosis. Kyphotic deformity apex at T10-11. No acute cortical disruption or gross malalignment. No lytic or blastic lesions. Mild S-shaped curvature of the thoracolumbar spine. CT/CT chest wo IV con IMPRESSION: No acute airspace disease. Subtle pulmonary mosaic pattern. Consider small airway disease versus small pulmonary artery disease. Mild scoliosis and mild to moderate multilevel spondylosis with a kyphotic deformity apex at T10-11. Coronary artery disease.. Fleischner guidelines were followed. Code(s): R91.8 - Other nonspecific abnormal finding of lung field Category: Medical (3) Hypercholesterolemia: Code(s): E78.00 - Pure hypercholesterolemia, unspecified Category: Medical (4) Nicotine dependence: Code(s): F17.200 - Nicotine dependence, unspecified, uncomplicated Category: Medical Qualifiers: Nicotine product type: cigarettes Substance use status: uncomplicated Qualified Code(s): F17.210 - Nicotine dependence, cigarettes, uncomplicated (5) Family history of [place] (myocardial infarction): Comment: dad Code(s): Z82.49 - Family history of ischemic heart disease and other diseases of the circulatory system Category: Medical Plan . Orders: Orders Pathologist Review - CBC Today E78.00 - Pure hypercholesterolemia, unspecified, F17.210 - Nicotine dependence, cigarettes, uncomplicated, I25.118 - Atherosclerotic heart disease of [place] coronary artery with other forms of angina pectoris Comprehensive [place]. Panel Fast Today E78.00 - Pure hypercholesterolemia, unspecified, F17.210 - Nicotine dependence, cigarettes, uncomplicated, I25.118 - Atherosclerotic heart disease of [place] coronary artery with other forms of angina pectoris Microalbumin, Random (w Creat) Today E78.00 - Pure hypercholesterolemia, unspecified, F17.210 - Nicotine dependence, cigarettes, uncomplicated, I25.118 - Atherosclerotic heart disease of [place] coronary artery with other forms of angina pectoris Apolipoprotein A1 Today E78.00 - Pure hypercholesterolemia, unspecified, F17.210 - Nicotine dependence, cigarettes, uncomplicated, I25.118 - Atherosclerotic heart disease of [place] coronary artery with other forms of angina pectoris CRP High Sensitivity Today E78.00 - Pure hypercholesterolemia, unspecified, F17.210 - Nicotine dependence, cigarettes, uncomplicated, I25.118 - Atherosclerotic heart disease of [place] coronary artery with other forms of angina pectoris Ferritin Today E78.00 - Pure hypercholesterolemia, unspecified, F17.210 - Nicotine dependence, cigarettes, uncomplicated, I25.118 - Atherosclerotic heart disease of [place] coronary artery with other forms of angina pectoris Hemoglobin A1c Today E78.00 - Pure hypercholesterolemia, unspecified, F17.210 - Nicotine dependence, cigarettes, uncomplicated, I25.118 - Atherosclerotic heart disease of [place] coronary artery with other forms of angina pectoris IRON PROFILE Today E78.00 - Pure hypercholesterolemia, unspecified, F17.210 - Nicotine dependence, cigarettes, uncomplicated, I25.118 - Atherosclerotic heart disease of [place] coronary artery with other forms of angina pectoris Lipid Panel Today E78.00 - Pure hypercholesterolemia, unspecified, F17.210 - Nicotine dependence, cigarettes, uncomplicated, I25.118 - Atherosclerotic heart disease of [place] coronary artery with other forms of angina pectoris TSH reflex Free T4 Today E78.00 - Pure hypercholesterolemia, unspecified, F17.210 - Nicotine dependence, cigarettes, uncomplicated, I25.118 - Atherosclerotic heart disease of [place] coronary artery with other forms of angina pectoris Vitamin B12 and Folate Today E78.00 - Pure hypercholesterolemia, unspecified, F17.210 - Nicotine dependence, cigarettes, uncomplicated, I25.118 - Atherosclerotic heart disease of [place] coronary artery with other forms of angina pectoris Apolipoprotein B Today E78.00 - Pure hypercholesterolemia, unspecified, F17.210 - Nicotine dependence, cigarettes, uncomplicated, I25.118 - Atherosclerotic heart disease of [place] coronary artery with other forms of angina pectoris Referrals Cardiology Referral I25.10 - Atherosclerotic heart disease of [place] coronary artery without angina pectoris Medications: New rosuvastatin (Crestor) 20 mg PO DAILY 90 tabs 1RF aspirin 81 mg PO DAILY 90 tabs 0RF Discontinued fluconazole take 1 tab day 1, repeat second dose on day 3 Discontinued Reason: Patient Completed Course 150 mg PO Q3D 2 tabs 0RF
== END 2024-11-26 16:15 | disposition home or self-care (01) ==
LOC: HO.HMCFM 14:03
PROVIDERS: PCP Nurse Practitioner Family; Visit Provider Nurse Practitioner Family
DX: I25.118 Atherosclerotic heart disease of native coronary artery with other forms of angina pectoris (principal); R91.8 Other nonspecific abnormal finding of lung field; E78.00 Pure hypercholesterolemia, unspecified; F17.210 Nicotine dependence, cigarettes, uncomplicated; Z82.49 Family history of ischemic heart disease and other diseases of the circulatory system

== ENCOUNTER → 2024-11-26 14:03 | Outpatient (BNVA) | payer OTHER, SELFPAY | PROVIDERS: PCP Nurse Practitioner Family; Visit Provider Nurse Practitioner Family | DX: Z13.89 Encounter for screening for other disorder (principal) ==

== ENCOUNTER 2024-12-01 09:25 | Outpatient (AMB) | payer OTHER, SELFPAY ==
--- NOTE | 2024-12-01 09:53 | A.OFFVIS_ITS ---
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 Operator Required: No Accompanied by: Self / Same As Patient Allergies bee pollen (Bee Stings) Allergy (Mild, Verified 11/26/24 15:52) ANAPHYLAXIS Medication List - Last Reconciled 12/01/24 by Stephan Oliver MD albuterol sulfate 90 mcg/actuation (ProAir HFA) 2 puffs inhalation Q4-6H PRN 90 days aspirin 81 mg PO DAILY epinephrine 0.3 mL IM ONCE PRN fluoxetine 20 mg PO DAILY 90 days ipratropium-albuterol 0.5 mg-3 mg(2.5 mg base)/3 mL 3 mL inhalation Q4-6H PRN levocetirizine (Allergy Relief (levocetirizine)) 5 mg PO DAILY montelukast 10 mg PO BEDTIME nebulizer and compressor As directed pantoprazole (Protonix) 40 mg PO DAILY rosuvastatin (Crestor) 20 mg PO DAILY umeclidinium-vilanterol 62.5-25 mcg/actuation (Anoro Ellipta) 1 inh inhalation Q24H 90 days HPI Comments Details: [age] year old female here for assessment of chest discomfort. 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 She is a smoker since age 14. She continues to smoke at this point. She has dyspnea and fatigue with going uphill. She does not get any chest discomfort but she had episodes of chest discomfort at rest a few times. Last episode was while driving when she had sudden heaviness in her chest. She does not get these symptoms with activity and in fact was hiking afterwards without any significant chest discomfort. She does get dyspnea and fatigue with activities. She is taking baby aspirin and rosuvastatin. Her last LDL cholesterol was 190 and she has started taking rosuvastatin few days ago. She is on treatment for COPD. [facility] Medical History Depression with anxiety History of uterine fibroid Bilateral arm pain Bilateral hand pain Bilateral shoulder pain Family history of thyroid cancer Family history of sleep apnea History of depression Nicotine dependence GERD (gastroesophageal reflux disease) Hypercholesterolemia Surgical History History of hand surgery History of bunionectomy of both great toes History of loop electrical excision procedure (LEEP) History of endometrial ablation Hx of tubal ligation Family History Father Hx of myocardial infarction Mother Hx of thyroid cancer Hx of cancer of lung Maternal Grandmother Hx of cancer of lung Maternal Grandfather History of prostate cancer Maternal Aunt Hx of cancer of uterus Paternal Grandmother History of colon cancer Other Mental health disorder Social History Housing: House Alcohol intake: current Alcohol intake frequency: holidays/special occasions only Alcohol type: beer Patient Tobacco Use Status: Current everyday Tobacco user Tobacco use type: Cigarette Cigarette Packs Per Day: 1 Cigarettes Per Day: 12 Years Smoked: 30 e-Cigarette/Vaping Use: Never Used Second Hand Smoke Exposure: No service: Yes Current occupational status: employed 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 Current occupational exposures/hazards: No Gender identity: Female Cognitive needs: No Hearing needs: No Vision needs: No Female Reproductive History Menstrual Age of Menarche: 14 Review of Systems Const Denies chills, Denies fatigue, Denies fever(s), Denies frequent falls, Denies weakness, Denies weight gain and Denies weight loss ENT Denies dizziness Card Denies chest pain, Denies leg edema, Denies lightheadedness, Denies palpitations, Denies dyspnea, Denies dyspnea on exertion and Denies orthopnea Resp Denies cough, Denies dyspnea and Denies dyspnea on exertion GI Denies bloating and Denies change in bowel habits Musc Denies muscle weakness, Denies numbness and Denies tingling Neuro Denies dizziness, Denies frequent falls, Denies numbness, Denies tingling and Denies weakness Endo Denies fatigue and Denies palpitations Physical Exam Vital Signs: Last Vital Signs Pulse 89 12/01/24 09:55 BP 120/82 12/01/24 09:55 BMI result Body Mass Index 27.8 GENERAL APPEARANCE: in no acute distress, anxious appearing. NECK: no carotid bruit, no jugular venous distention. SKIN: no suspicious lesions, warm and dry. HEART: no murmurs, regular rate and rhythm. LUNGS: clear to auscultation bilaterally. ABDOMEN: soft, nontender. EXTREMITIES: no edema. PERIPHERAL PULSES: equal. NEUROLOGIC: No gross deficits, AAO X 3 Office Procedures EKG Details: NSR 89/min, Normal axis, QTc 445 msec. [id number], Complete Assessment & Plan Assessment & Plan (1) Hypercholesterolemia: Code(s): E78.00 - Pure hypercholesterolemia, unspecified Category: Medical (2) Family history of DC (myocardial infarction): Comment: dad Code(s): Z82.49 - Family history of ischemic heart disease and other diseases of the circulatory system Category: Medical (3) Chest pain: Code(s): R07.9 - Chest pain, unspecified Category: Medical Plan 49-year-old female who is here for 1st office visit. She has been experiencing some chest pains at rest but does not get them with activity. I have explained to her that this pattern is quite atypical for coronary disease. She does have reflux which can play a role in these symptoms. We discussed about smoking cessation and its benefits for cardiovascular and GI issues. Due to her dyspnea and fatigue, we have decided to perform a coronary CTA. I explained to her that stress test is a possibility 2 but it will only rule out significant coronary disease. Coronary CTA will give us more data about plaque morphology and burden. She has LDL of 190 which raises concern for familial hyperlipidemia. She is on rosuvastatin 20 mg currently. She is getting lipid panel as baseline today and we will repeat it in 6-8 weeks as a fasting test. I think she will require addition of ezetimibe. We will see her after the coronary CTA is performed. We will also do an echocardiogram to rule out any diastolic dysfunction original wall motion abnormalities. Follow up with us in few months. Thank you for allowing me to participate in the care of your patient. Please feel free to contact me if you have any questions. Orders: Orders CT Cardiac Coronary Angio Today R07.9 - Chest pain, unspecified CA echo transthoracic complete Today R07.9 - Chest pain, unspecified Lipid Panel 2 Months E78.00 - Pure hypercholesterolemia, unspecified Coding Level of Care Code New Pt Level 4 (65858) Complex EM visit Add On G2211 Diagnoses Hypercholesterolemia E78.00 Family history of DC (myocardial infarction) Z82.49 Chest pain R07.9 CPT Codes EKG - CPT: 17903-[id number], Complete ([id number])
[2024-12-01 09:55] VITALS: BP 120/82; PULSE 89; BMI 27.8
--- OUTSIDE RECORDS SUMMARY | 2024-12-01 10:22 | XMS_ITS | Clinical Summary ---
Author Organization [facility] ity Address [address] [place] [address] Care Team Providers Care Nurse First Assist Name Role Phone Bernabe Smith MD Primary Care Provider [phone] Social History Tobacco Use Types Packs/Day Years [...] age to complete this topic Care Teams Nurse First Assist Relationship Specialty Start Date End Date Bernabe Smith MD [address] [place] [address] PCP - General 01/24/00
== END 2024-12-01 11:05 | disposition home or self-care (01) ==
LOC: HO.HCS 09:26
PROVIDERS: PCP Nurse Practitioner Family; Visit Provider Internal Medicine Cardiovascular Disease
DX: E78.00 Pure hypercholesterolemia, unspecified (principal); Z82.49 Family history of ischemic heart disease and other diseases of the circulatory system; R07.9 Chest pain, unspecified
CPT/HCPCS: 93010; 99204; G2211

== ENCOUNTER 2024-12-01 09:25 | Outpatient (REF) | payer OTHER, SELFPAY ==
[2024-12-01 11:32] LABS: Estimated Average Glucose 123 mg/dL; Hemoglobin A1c % 5.9 % (<6.0); Total Hemoglobin (HGBA1C) 3845.5843 umol/L
[2024-12-01 12:07] LABS: Alanine Aminotransferase 31 U/L (0-31); Albumin Level 4.3 g/dL (3.5-5.0); Alkaline Phosphatase 69 U/L (39-117); Anion Gap 11 (12-20); Aspartate Amino Transferase 30 U/L (5-31); Bilirubin Total 0.5 mg/dL (0.0-1.0); Blood Urea Nitrogen 9 mg/dL (9-16); Calcium 9.4 mg/dL (8.4-10.2); Carbon Dioxide 27 mmol/L (22-29); Chloride 105 mmol/L (96-108); Cholesterol 238 mg/dL (<200); Estimated Glomerular Filt Rate > 60; Glucose Fasting 104 mg/dL (60-99); HDL Cholesterol 31 mg/dL (>40); Iron 181 mcg/dL (30-160); LDL Cholesterol Calculated 142 mg/dL (<100); Percent Iron Saturation 50 % (15-50); Potassium 3.9 mmol/L (3.3-5.1); Sodium 139 mmol/L (135-145); Total Iron Binding Capacity 359 mcg/dL (228-428); Total Protein 7.2 g/dL (6.5-8.0); Triglycerides 328 mg/dL (<150); Unsaturated Iron Binding 178 ug/dL
[2024-12-01 12:17] LABS: Ferritin 115 ng/mL (10-250); TSH reflex Free T4 1.27 uIU/mL (0.32-4.0)
[2024-12-01 12:19] LABS: Creatinine Urine 164.89 mg/dL; Microalbum/Creatinine Ratio Ur 15.1 ug/mg cr (<30)
[2024-12-01 12:28] LABS: Folate 12.2 ng/mL (> or = 4.0); Vitamin B12 462 pg/mL (200-900)
[2024-12-01 13:27] LABS: Basophils Absolute Auto 0.1 X10*3/uL (0.0-0.2); Basophils Percent Auto 0.8 % (0-2); Eosinophils Absolute Auto 0.3 X10*3/uL (0.0-0.4); Eosinophils Percent Auto 2.9 % (0-4); Imm Gran Abs Auto 0.05 X10*3/uL (0.00-0.03); Imm Gran Pct Auto 0.4 % (0.0-0.4); Lymphocytes Absolute Auto 4.2 X10*3/uL (1.2-4.9); Lymphocytes Percent Auto 35.6 % (20-40); MANUAL DIFF FLAG NO; Mean Corpuscular HGB Conc 34.9 g/dl (31.0-35.0); Mean Corpuscular Hemoglobin 31.9 pg (27.0-33.0); Mean Corpuscular Volume 91.5 fL (80.0-98.0); Mean Platelet Volume 9.3 fL (9.4-12.3); Monocytes Percent Auto 8.4 % (2-11); Neutrophils Absolute Auto 6.1 x10*3/uL (2.0-8.3); Neutrophils Percent Auto 51.9 % (45-73); Platelet Count 389 X10*3/uL (160-400); Red Cell Distribution Width 12.6 % (11.0-16.0); White Blood Count 11.8 X10*3/uL (4.8-10.8)
[2024-12-02 13:09] LABS: CRP High Sensitivity 3.3 mg/L
[2024-12-05 14:07] LABS: Apolipoprotein A1 116 mg/dL (>=125); Apolipoprotein B 161 mg/dL (<90)
== END 2024-12-01 09:26 | disposition home or self-care (01) ==
LOC: HO.LAB 09:25
PROVIDERS: Absent Provider Nurse Practitioner Family; PCP Nurse Practitioner Family; Visit Provider Internal Medicine Cardiovascular Disease
DX: I25.118 Atherosclerotic heart disease of native coronary artery with other forms of angina pectoris (principal); E78.00 Pure hypercholesterolemia, unspecified; F17.210 Nicotine dependence, cigarettes, uncomplicated; R07.9 Chest pain, unspecified
CPT/HCPCS: 80053; 80061; 82043; 82172; 82570; 82607; 82728; 82746; 83036; 83540; 84443; 85025; 86141; 93005

== ENCOUNTER 2024-12-15 13:32 | Outpatient (AMB) | payer OTHER, SELFPAY ==
--- NOTE | 2024-12-15 13:50 | A.OFFVIS_ITS ---
Vital Signs 12/15/24 13:57 Height 5 ft 3 in Weight 157 lb BMI 27.8 BP 140/73 H Blood Pressure Location Rt brachial Position Sitting Pulse 94 Intake Visit Reasons: lipoma on back Intake Note: Patient referred by pcp Areli Love for evaluation of lipoma on mid lower back and RUQ. Patient c/o: irritating. Denies pain. Credit Or Loans Officer Required: No Accompanied by: Self / Same As Patient Allergies bee pollen (Bee Stings) Allergy (Mild, Verified 11/26/24 15:52) ANAPHYLAXIS Medication List - Last Reconciled 12/15/24 by Arias Herrera MD albuterol sulfate 90 mcg/actuation (ProAir HFA) 2 puffs inhalation Q4-6H PRN 90 days aspirin 81 mg PO DAILY epinephrine 0.3 mL IM ONCE PRN fluoxetine 20 mg PO DAILY 90 days ipratropium-albuterol 0.5 mg-3 mg(2.5 mg base)/3 mL 3 mL inhalation Q4-6H PRN levocetirizine (Allergy Relief (levocetirizine)) 5 mg PO DAILY montelukast 10 mg PO BEDTIME nebulizer and compressor As directed pantoprazole (Protonix) 40 mg PO DAILY rosuvastatin (Crestor) 20 mg PO DAILY umeclidinium-vilanterol 62.5-25 mcg/actuation (Anoro Ellipta) 1 inh inhalation Q24H 90 days HPI HPI lipoma on back: Details: [age] year old female here for lipomas. She describes a ?bump? on her back which she has had for a long time. She says she feels other 1 on the abdominal wall under the right rib. She says that these bother her with some pains and wa nts these removed. COUNT INCLUDES THE [facility] Medical History (Updated 12/15/24 @ 14:17 by Arias Herrera MD) Multiple lipomas Depression with anxiety History of uterine fibroid Bilateral arm pain Bilateral hand pain Bilateral shoulder pain Family history of thyroid cancer Family history of sleep apnea History of depression Nicotine dependence GERD (gastroesophageal reflux disease) Hypercholesterolemia Surgical History History of release of tendon History of hand surgery History of bunionectomy of both great toes History of loop electrical excision procedure (LEEP) History of endometrial ablation Hx of tubal ligation Family History Father Hx of myocardial infarction Mother Hx of thyroid cancer Hx of cancer of lung Maternal Grandmother Hx of cancer of lung Maternal Grandfather History of prostate cancer Maternal Aunt Hx of cancer of uterus Paternal Grandmother History of colon cancer Other Mental health disorder Social History Housing: House Alcohol intake: current Alcohol intake frequency: holidays/special occasions o nly Alcohol type: beer Patient Tobacco Use Status: Current everyday Tobacco user Tobacco use type: Cigarette Cigarette Packs Per Day: 1 Cigarettes Per Day: 12 Years Smoked: 30 e-Cigarette/Vaping Use: Never Used Second Hand Smoke Exposure: No service: Yes Current occupational status: employed 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 Current occupational exposures/hazards: No Gender identity: Female Cognitive needs: No Hearing needs: No Vision needs: No Female Reproductive History Menstrual Age of Menarche: 14 Review of Systems Const Denies chills and Denies fever(s) Card Denies chest pain, Denies dyspnea and Denies dyspnea on exertion Resp Denies cough, Denies dyspnea and Denies dyspnea on exertion GI Denies hematochezia and Denies change in bowel habits Denies hematuria Musc Denies back pain and Denies limited range of motion Neuro Denies focal weakness and Denies convulsions Psych Denies depression and Denies mood swings Physical Exam Vital Signs: Last Vital Signs Pulse 94 12/15/24 13:57 BP 140/73 H 12/15/24 13:57 BMI result Body Mass Index 27.8 Const General: comfortable and no acute distress Orientation/consciousness: patient oriented x3 Neck Neck: Yes no lymphadenopathy Resp Auscultation: clear to auscultation bilaterally Cardio Rhythm: regular rhythm GI Other: On the right upper quadrant under the right rib is note of a vague lipomatous mass, about 1 cm in size which seems to be deep in the subcutaneous layer Palpation (GI): Soft to palpation, nontender and no guarding Back/Spine/Pelvis Other: Mid back area with note of a lipomatous mass, about 1.7 cm in diameter Neuro General: patient oriented x3 Assessment & Plan Assessment & Plan (1) Multiple lipomas: Code(s): D17.9 - Benign lipomatous neoplasm, unspecified Category: Medical Plan: She wants these 2 lipomas removed. I explained the technique of excision under local anesthesia. I reviewed the risks including but not limited to bleeding and infections, as well as the benefits and alternatives. She understands and wants to proceed This will be done in the office on her next visit. Coding Level of Care Code New Pt Level 3 (59826) Diagnoses Multiple lipomas D17.9
[2024-12-15 13:57] VITALS: BP 140/73; PULSE 94; BMI 27.8
--- OUTSIDE RECORDS SUMMARY | 2024-12-15 14:23 | XMS_ITS | Clinical Summary ---
Author Organization [facility] ity Address [address] [place] [address] Care Team Providers Care Corporate Counselor Name Role Phone Bernabe Smith MD Primary Care Provider [phone] Social History Tobacco Use Types Packs/Day Years [...] Vaccine (2023-2 5 season) 2024 Influenza Vaccine (#1) 2025 HIB Vaccines Aged Out No longer [...] 5 Years) and At-Risk Patients (6 to 49 Years) Aged Out No longer eligible b ased on patient's age to complete this topic RSV Immunization Patients Un nelly 20 months Aged Out No longer eligible b ased on patient's age to complete this topic Varicella Vaccines Aged Out No longer eligible based on patient's age to complete this topic Care Teams Corporate Counselor Relationship Specialty Start Date End Date Bernabe Smith MD [address] [place] [address] PCP - General 01/24/00
== END 2024-12-15 14:18 | disposition home or self-care (01) ==
LOC: HO.HGS 13:33
PROVIDERS: PCP Nurse Practitioner Family; Visit Provider Surgery
DX: D17.9 Benign lipomatous neoplasm, unspecified (principal)
CPT/HCPCS: 99203

== ENCOUNTER 2024-12-21 18:48 | Outpatient (REF) | payer OTHER, SELFPAY ==
--- NOTE | ~2024-12-21 | MR_ITS ---
EXAMINATION: MR CERVICAL SPINE WITHOUT CONTRAST CLINICAL INFORMATION: Paresthesia of the skin, numbness in both upper extremities and neck. COMPARISON: None available. TECHNIQUE: MRI of the cervical spine was obtained using routine sequences without contrast. FINDINGS: Craniocervical junction is intact. The cerebellar tonsils are in normal position. No bone marrow STIR signal abnormality. Cervical spinal cord signal is normal. Marginal osteophyte formation and disc desiccation decreased intervertebral disc height at C5-6. Grade 1 retrolisthesis C5-6. C2-3: No disc herniation. No neuroforamina stenosis. C3-4: Central disc osteophyte compresses formation. No cord compression. No neuroforamina stenosis. C4-5: Central disc osteophyte consummation resulting in ventral deformity of the thecal sac. No cord compression. No neuroforamina stenosis. C5-6: There is a broad-based disc herniation resulting in spinal cord deformity and CSF effacement on the ventral aspect of the thecal sac. There is bilateral, left greater than the right neuroforamina stenosis on a degenerative basis. C6-7: Central disc osteophyte complex formation. No cord compression. No neuroforamina stenosis. C7-T1: No disc herniation. No neuroforamina stenosis. No prevertebral compartment hematoma, mass or fluid collection. Flow-void signal within the main vessels is normal. Right vertebral artery is slightly dominant. Prominent palatine tonsils. 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 Mild cervical spondylosis C4-5 to C6-7. Electronically signed by: Devante Kelley MD 12/22/2024 07:43 AM EDT
--- OUTSIDE RECORDS SUMMARY | 2024-12-21 18:51 | XMS_ITS | Clinical Summary ---
Author Organization [facility] ity Address [address] [place] [address] Care Team Providers Care Monument Letterer Name Role Phone Bernabe Smith MD Primary Care Provider [phone] Social History Tobacco Use Types Packs/Day Years [...] age to complete this topic Care Teams Monument Letterer Relationship Specialty Start Date End Date Bernabe Smith MD [address] [place] [address] PCP - General 01/24/00
--- OUTSIDE RECORDS SUMMARY | 2024-12-21 18:52 | XMS_ITS | Patient Health Record ---
Author Organization [facility] Address [address] [place] [address] Care Team Providers Care Floorworker Lasting Name Role Phone Josse Junior Primary Care Provider Unavailab Olegario Edge Jr Unavailable [phone] Allergies Allergen (clinical drug ingredient) Drug/Non Drug [...] Problem Status W/U Status Risk Notes Problem 989142250 Colon cancer screening (Z12.11) Active confirmed Problem Gastroesophageal reflux disease (497015973) Gastroesophageal reflux disease (K21.9) Active confirmed Problem 25719788 Rectal pain (K62.89) Active confirmed Problem Erosive esophagitis (14988020) Erosive esophagitis (K22.10) Active confirmed Problem 574775614 Gastroesophageal reflux disease, unspecified whether esophagitis present (K21.9) Active confirmed Plan Of Treatment Future Test Test Name Order Date COLONOSCOPY 03/26/2012 UPPER GI ENDOSCOPY 02/20/2023 COLONOSCOPY 02/20/2023 Insurance Providers Payer Name Payer Address Payer Phone Subscriber Number Group Number Insured Name Patient Relationship to Insured Coverage Start Date Coverage End Date [employer] [address] [place] [phone] [id number] SIMONA ARGUELLO Self - patient is the insured Medical (General) History Medical History History ICD Code COPD HPV/CIN2 Nephrolithiasis Colonoscopy 03/20, normal including biop sies Surgical History Surgery Date(Month/Year) Endometrial ablation Tubal ligation multple leep & laser surgeries Tendon surgery, trigger finger release
== END 2024-12-21 18:49 | disposition home or self-care (01) ==
LOC: HO.MRI 18:48
PROVIDERS: PCP Nurse Practitioner Family; Visit Provider Nurse Practitioner Family
DX: R20.2 Paresthesia of skin (principal); M54.2 Cervicalgia
CPT/HCPCS: 72141

== ENCOUNTER → 2024-12-21 18:48 | Outpatient (BNV) | payer OTHER, SELFPAY | PROVIDERS: PCP Nurse Practitioner Family; Visit Provider Radiology Diagnostic Radiology | DX: M48.02 Spinal stenosis, cervical region (principal) | CPT/HCPCS: 72141 ==

== ENCOUNTER → 2025-01-05 09:50 | Outpatient (REF) | payer OTHER, SELFPAY ==
--- OUTSIDE RECORDS SUMMARY | 2022-08-02 13:50 | XMS_ITS | Encounter Summary ---
Author Organization [facility] Address [address] [facility] [address] [place] [phone] Phone Care Team Providers Care Staff Nurse Anesthetist Name Role Phone Josse Junior MD Primary Care Provider Encounter Details Date Type Department Care Team (Late st Contact Info) Description 08/02/2022 12:50 PM EST Hospital Encounter [facility] [address] [place] [phone] Trini Abrams FNP [address] [place] [address] [email or web address] Social History Tobacco Use Types Packs/Day Years [...] appropriate lab work is recommended. Trini Abrams LUBRICATION EQUIPMENT SERVICER IMG XR CHEST Final Resul t documented in this encounter Visit Diagnoses Not on filedocumented in this encounter Additional Health Concerns Infection Onset Date Last Indicated Resolved Time CoV-Risk 08/02/2022 08/02/2022 08/13/2022 1:22 AM EST documented as of this encounter Care Teams Staff Nurse Anesthetist Relationship Specialty Start Date End Date Josse Junior MD [address] [place] [address] PCP - General Family Medicine 01/17/22 documented as of this encounter Additional Source Comments The information contained in this document represents components of the legal health record. It is not the complete legal health record.[facility]
--- NOTE | 2025-01-05 09:52 | CA_ITS ---
Transthoracic Echocardiogram Patient (Last, First, Middle): Lisbeth Fitzgerald, Gender: Female Date of : 1975 Age: 49 Procedure Date: 01/05/2025 Procedure Type: Transthoracic Echocardiogram Location: OP Height: 160.02 cm Weight: 71.22 kg BSA: 1.74 m2 Heart Rate: bpm BP: 140 / 73 mmHg Education Department Registrar: DANISH Referring MD: Stephan Oliver MD Veterans Service Officer: Jac Riley MD Symptoms: R07.9 - Chest pain, unspecified Study Quality: Adequate ECG Rhythm: Sinus Conclusions: - 1. Normal LV ejection fraction 55-60% with grade 1 diastolic dysfunction 2. Normal cardiac valvular Dopplers 3. Normal RV systolic pressure 4. No gross pericardial effusion Findings Left Ventricle Normal left ventricular size, thickness, and systolic function. The visually estimated ejection fraction is between 55-60%. Spectral Doppler is indicative of an impaired relaxation filling pattern. E/E prime ratio is <8, consistent with normal filling pressures. Evidence suggests grade I (mild) diastolic dysfunction. Right Ventricle Normal right ventricular cavity size and systolic function. Atria Both atria are normal in size. There is no evidence of interatrial shunt. Aortic Valve Normal aortic valve structure and function. There is no aortic valve stenosis. There is no aortic valve regurgitation. Mitral Valve Normal mitral valve structure and function. There is trace mitral valve regurgitation. There is no mitral valve stenosis. Pulmonic Valve The pulmonic valve is likely normal. Tricuspid Valve Normal tricuspid valve structure. There is trace tricuspid valve regurgitation. The right ventricular systolic pressure is normal. The right ventricular systolic pressure is 19 mmHg. Normal right atrial pressure. There is no evidence of pulmonary hypertension. Great Vessels All visible segments of the aorta are normal in size. The pulmonary artery was not well visualized. There is no dilatation of the ascending aorta measuring 2.90 cm. Venous The inferior vena cava is normal in size and collapses greater than 50% with inspiration. Pericardium/Pleural There is no evidence of pericardial effusion. Prior Study Comparison No prior study available for comparison. Measurements 2D Linear Measurements IVSd: 0.78 0.6-0.9/0.6-1.0 cm LVIDd: 4.68 3.9-5.3/4.2-5.9 cm LVIDd Index: 2.69 2.4-3.2/2.2-3.1 cm/m2 LVIDs: 3.15 2.0-3.6 cm LVPWd: 0.88 0.7-1.1 cm LA Diam: 3.20 2.7-3.8/3.0-4.0 cm LAIDs Index: 1.84 1.5-2.3 cm/m2 LV Mass: 158.43 67-162/88-224 g LV Mass Index: 91.05 43-95/49-115 g/m2 LVOT Diam: 1.90 3.0+(-)1.3 cm 2D Systolic Function EF 4C: 56.70 >55% EF 2C: 56.90 >55% EF BiP: 57.10 >55% Mitral Valve MV Pk E: 0.64 MV PK A: 0.85 MV Decel Time: 214.00 E/A: 0.80 E'Lateral: 7.72 E'Medial: 5.66 E/E' Med: 11.40 E/E' Lat: 8.30 PHT: 63.00 MVA PHT: 3.49 Decel [place]ou: 3.00 Aortic Valve AoV Pk Ant: 1.55 AoV Mn Ant: 1.14 AoV VTI: 0.31 AoV Pk Grad: 10.00 Aov Mn Grad: 6.00 KENDRICK Cont.VTI: 1.77 LVOT LVOT Pk Ant: 0.92 LVOT Mn Ant: 0.65 LVOT VTI: 0.19 LVOT Pk Grad: 3.00 LVOT Mn Grad: 2.00 LVOT Diam: 1.90 LVOT Area: 2.84 Diastolic Function MV Pk E: 0.64 MV Pk A: 0.85 E/A: 0.80 E'Medial: 5.66 E/E' Med: 11.40 E' Laterial: 7.72 E/E' Lat: 8.30 Right Ventricle TAPSE (mm): 24.00 TVS' Ant: 11.60 Tricuspid Valve TR Pk Ant: 2.01 TR Pk Grad: 16.00 RA Press: 3.00 RVSP: 19.00 Great Vessels Aorta Sinus of Valsalva: 2.74 2.0-3.5 cm Ao Asc: 2.90 2.1-3.4 cm Ao Arch: 2.90 Updated in Other Vendor System with Status of Final Jac Riley MD electronically signed on 01/06/2025 11:18:37 AM with status of Final
--- OUTSIDE RECORDS SUMMARY | 2025-01-05 10:29 | XMS_ITS | Clinical Summary ---
Author Organization [facility] ity Address [address] [place] [address] Care Team Providers Care Sheet Taker Name Role Phone Bernabe Smith MD Primary Care Provider Social History Tobacco Use Types Packs/Day Years [...] 1996 COVID-19 Vaccine (2023-2 5 season) 2024 Depression Screening 06/09/2024 Influenza Vaccine (#1) 2025 HIB Vaccines Aged [...] age to complete this topic Care Teams Sheet Taker Relationship Specialty Start Date End Date Bernabe Smith MD [address] [place] [address] PCP - General 01/24/00
--- OUTSIDE RECORDS SUMMARY | 2025-01-05 10:29 | XMS_ITS ---
Author Name [facility] Organization Unknown Care Team Organization Name Specialty Phone Email Start Date End Da te [facility] NULL Primary Care 04/16/2022 01/26/2024
--- OUTSIDE RECORDS SUMMARY | 2025-01-05 10:29 | XMS_ITS | Patient Health Record ---
Author Organization [facility] Address [address] [place] [address] Care Team Providers Care Fireman Helper Name Role Phone Josse Junior Primary Care Provider Unavailab Olegario Edge Jr Unavailable Allergies Allergen (clinical drug ingredient) Drug/Non Drug [...] Problem Status W/U Status Risk Notes Problem [id number] Colon cancer screening (Z12.11) Active confirmed Problem Gastroesophageal reflux disease (663120973) Gastroesophageal reflux disease (K21.9) Active confirmed Problem 89727193 Rectal pain (K62.89) Active confirmed Problem Erosive esophagitis (94740556) Erosive esophagitis (K22.10) Active confirmed Problem 529894026 Gastroesophageal reflux disease, unspecified whether esophagitis present (K21.9) Active confirmed Plan Of Treatment Future Test Test Name Order Date COLONOSCOPY 03/26/2012 UPPER GI ENDOSCOPY 02/20/2023 COLONOSCOPY 02/20/2023 Insurance Providers Payer Name Payer Address Payer Phone Subscriber Number Group Number Insured Name Patient Relationship to Insured Coverage Start Date Coverage End Date [employer] [address] [place] [phone] [id number] SIMONA ARGUELLO Self - patient is the insured Medical (General) History Medical History History ICD Code COPD HPV/CIN2 Nephrolithiasis Colonoscopy 03/20, normal including biop sies Surgical History Surgery Date(Month/Year) Endometrial ablation Tubal ligation multple leep & laser surgeries Tendon surgery, trigger finger release
== END ==
LOC: HO.CARD 09:50
PROVIDERS: PCP Nurse Practitioner Family; Visit Provider Internal Medicine Cardiovascular Disease
DX: R07.9 Chest pain, unspecified (principal)
CPT/HCPCS: 93306

== ENCOUNTER → 2025-01-05 09:52 | Outpatient (BNV) | payer OTHER, SELFPAY | PROVIDERS: PCP Nurse Practitioner Family; Visit Provider Internal Medicine Cardiovascular Disease | DX: I51.89 Other ill-defined heart diseases (principal); R07.9 Chest pain, unspecified | CPT/HCPCS: 93306 ==

== ENCOUNTER 2025-01-17 14:32 | Outpatient (AMB) | payer OTHER, SELFPAY ==
--- OUTSIDE RECORDS SUMMARY | 2022-08-02 13:50 | XMS_ITS | Encounter Summary ---
Author Organization [facility] Address [address] [facility] [address] [place] [address] Phone Care Team Providers Care Linderman Machine Operator Name Role Phone Josse Junior MD Primary Care Provider Encounter Details Date Type Department Care Team (Late st Contact Info) Description 08/02/2022 12:50 PM EST Hospital Encounter [facility] [address] [place] [phone] Trini Abrams FNP [address] [place] [address] [email or web address] Social History Tobacco Use Types Packs/Day Years [...] appropriate lab work is recommended. Trini Abrams WELFARE PROJECT MANAGER IMG XR CHEST Final Resul t documented in this encounter Visit Diagnoses Not on filedocumented in this encounter Additional Health Concerns Infection Onset Date Last Indicated Resolved Time CoV-Risk 08/02/2022 08/02/2022 08/13/2022 1:22 AM EST documented as of this encounter Care Teams Linderman Machine Operator Relationship Specialty Start Date End Date Josse Junior MD [address] [place] [address] PCP - General Family Medicine 01/17/22 documented as of this encounter Additional Source Comments The information contained in this document represents components of the legal health record. It is not the complete legal health record.[facility]
--- NOTE | 2025-01-17 14:46 | HO.SPINEOV ---
Intake Visit Reasons: Paresthesia of the skin Intake Note: Ms. Fitzgerald is here today c/o bilateral arm numbness. MRI done @ [facility]. Engineering Department Chair Required: No Allergies bee pollen (Bee Stings) Allergy (Mild, Verified 11/26/24 15:52) ANAPHYLAXIS Assessment & Plan Assessment & Plan (1) Bilateral hand numbness: Code(s): R20.0 - Anesthesia of skin Category: Medical Plan Dear XAVIER Love, Thank you for referring Lisbeth to our office today. 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 When describing the shooting pain she states that it starts near her triceps and shoots down the dorsal surface of her bilateral arms terminating near the wrist. She reports numbness accompanies this feeling of pain. She reports that this has been ongoing and worsening for the past 1 year. She states that she previously was evaluated and treated for bilateral carpal tunnel and cubital tunnel syndrome about 2 years ago. She did have some relief of the numbness and pain that she add in her bilateral hands/arms after having this completed. She most recently was sent for a MRI of the cervical spine, prompting her visit to our office today for evaluation. She reports that the pain and numbness in her arms and hands typically worsens overnight or with activity. She frequently will wake up with her whole arm feeling ?? and needs to move the arm around to regain some sense of feeling. She also has episodes throughout the day where her hands will not work properly (usually activity related). She reports issues with dexterity, but is still able to perform basic tasks such as zipping of the zipper on her purse, which I had her performed during this visit today. She denies any issues with balance, or bowel / bladder retention. She does have some issues with bowel incontinence, but states that she has had this at baseline her entire life. PMH: COPD, high cholesterol, history of right-sided trigger finger release, LEEP laser ablation, bilateral bunionectomy, tubal ligation. Social hx: Patient does smoke cigarettes, denies any other substance use. Medications: Anoro, Prozac, crestor, protonix, Aspirin. Allergies: NKDA Physical exam: The patient has full 5/5 strength in her upper and lower extremities. She ambulates well with a nonantalgic non spastic gait. She uses no assistive devices to ambulate. She has some sensational deficits as reported in her HPI, but the rest of her examination is unremarkable to light touch. Her reflexes are 2+ intact. (+) Tinel's at wrist bilaterally. (+) Right sided Phalen's. (-) Left sided Phalen's. (-) Perez's, (-) clonus, (-) bilateral straight leg raise. Imaging review: MRI of the cervical spine completed here at [facility] shows a small posterior disc bulge at C5-6 causing what I would grade as mild-moderate central canal and mild bilateral foraminal stenosis at this level. No evidence of T2 signal change or myelomalacia. Impression: Lisbeth is a pleasant 49-year-old female comes in today for evaluation of low-grade posterior neck pain alongside bilateral hand numbness and shooting pains over the dorsal surface of her bilateral arms. Her symptoms worsened overnight. She has a pertinent past medical history of bilateral cubital and carpal tunnel release. I do not believe that the compression seen on her cervical MRI is solely responsible for her symptoms. There is no severe cord compression and no signs of myelomalacia. I think we should obtain an EMG to rule out a continued compression of the median/ulnar nerve vs. a new cervical radiculopathy. I will order the EMG and follow up with Lisbeth via a phone call thereafter. She understands and agrees to this plan. Thank you for allowing us to care for your patient. The total time spent with this visit with this patient was 45 minutes reviewing history, physical exam, MRI imaging review, and implementation of treatment plan or further diagnostic testing Davon Catherine MD,PhD [facility] Orders: Orders NE electromyogram (EMG) Today R20.0 - Anesthesia of skin Coding Level of Care Code New Pt Level 4 (89233) Diagnoses Bilateral hand numbness R20.0
--- OUTSIDE RECORDS SUMMARY | 2025-01-17 14:59 | XMS_ITS | Clinical Summary ---
Author Organization [facility] ity Address [address] [place] [address] Care Team Providers Care Pharmacy Resource Tech Name Role Phone Bernabe Smith MD Primary Care Provider [phone] Social History Tobacco Use Types Packs/Day Years [...] age to complete this topic Care Teams Pharmacy Resource Tech Relationship Specialty Start Date End Date Bernabe Smith MD [address] [place] [address] PCP - General 01/24/00
--- OUTSIDE RECORDS SUMMARY | 2025-01-17 14:59 | XMS_ITS | Patient Health Record ---
Author Organization [facility] Address [address] [place] [address] Care Team Providers Care Negative Cutter Name Role Phone Josse Junior Primary Care Provider Unavailab Olegario Edge Jr Unavailable [phone] Allergies Allergen (clinical drug ingredient) Drug/Non [...] Problem Status W/U Status Risk Notes Problem [id number] Colon cancer screening (Z12.11) Active confirmed Problem Gastroesophageal reflux disease (327095874) Gastroesophageal reflux disease (K21.9) Active confirmed Problem 53485894 Rectal pain (K62.89) Active confirmed Problem Erosive esophagitis (29544715) Erosive esophagitis (K22.10) Active confirmed Problem 997381265 Gastroesophageal reflux disease, unspecified whether esophagitis present (K21.9) Active confirmed Plan Of Treatment Future Test Test Name Order Date COLONOSCOPY 03/26/2012 UPPER GI ENDOSCOPY 02/20/2023 COLONOSCOPY 02/20/2023 Insurance Providers Payer Name Payer Address Payer Phone Subscriber Number Group Number Insured Name Patient Relationship to Insured Coverage Start Date Coverage End Date [employer] [address] [place] [phone] [id number] SIMONA ARGUELLO Self - patient is the insured Medical (General) History Medical History History ICD Code COPD HPV/CIN2 Nephrolithiasis Colonoscopy 03/20, normal including biop sies Surgical History Surgery Date(Month/Year) Endometrial ablation Tubal ligation multple leep & laser surgeries Tendon surgery, trigger finger release
== END 2025-01-17 16:05 | disposition home or self-care (01) ==
LOC: HO.HNS 14:33
PROVIDERS: PCP Nurse Practitioner Family; Referring Provider Nurse Practitioner Family; Visit Provider Physician Assistant
DX: R20.0 Anesthesia of skin (principal)
CPT/HCPCS: 99204

== ENCOUNTER 2025-01-18 08:35 | Outpatient (REF) | payer OTHER, SELFPAY ==
--- OUTSIDE RECORDS SUMMARY | 2022-08-02 13:50 | XMS_ITS | Encounter Summary ---
Author Organization [facility] Address [address] [facility] [address] [place] [phone] Phone Care Team Providers Care Fiber Worker Name Role Phone Josse Junior MD Primary Care Provider Encounter Details Date Type Department Care Team (Late st Contact Info) Description 08/02/2022 12:50 PM EST Hospital Encounter [facility] [address] [place] [phone] Trini Abrams FNP [address] [place] [address] [email or web address] Social History Tobacco Use Types Packs/Day Years [...] appropriate lab work is recommended. Trini Abrams HOME EXTENSION AGENT IMG XR CHEST Final Resul t documented in this encounter Visit Diagnoses Not on filedocumented in this encounter Additional Health Concerns Infection Onset Date Last Indicated Resolved Time CoV-Risk 08/02/2022 08/02/2022 08/13/2022 1:22 AM EST documented as of this encounter Care Teams Fiber Worker Relationship Specialty Start Date End Date Josse Junior MD [address] [place] [address] PCP - General Family Medicine 01/17/22 documented as of this encounter Additional Source Comments The information contained in this document represents components of the legal health record. It is not the complete legal health record.[facility]
--- OUTSIDE RECORDS SUMMARY | 2025-01-18 08:51 | XMS_ITS | Clinical Summary ---
Author Organization [facility] ity Address [address] [place] [address] Care Team Providers Care Construction Cost Estimator Name Role Phone Bernabe Smith MD Primary Care Provider [phone] Social History Tobacco Use Types Packs/Day Years [...] age to complete this topic Care Teams Construction Cost Estimator Relationship Specialty Start Date End Date Bernabe Smith MD [address] [place] [address] PCP - General 01/24/00
--- OUTSIDE RECORDS SUMMARY | 2025-01-18 08:51 | XMS_ITS | Patient Health Record ---
Author Organization [facility] Address [address] [place] [address] Care Team Providers Care Buildings Painter Name Role Phone Josse Junior Primary Care Provider Unavailab Olegario Edge Jr Unavailable [phone] Allergies Allergen (clinical drug ingredient) Drug/Non Drug [...] Problem Status W/U Status Risk Notes Problem [id number] Colon cancer screening (Z12.11) Active confirmed Problem Gastroesophageal reflux disease (722007609) Gastroesophageal reflux disease (K21.9) Active confirmed Problem 51867373 Rectal pain (K62.89) Active confirmed Problem Erosive esophagitis (13589545) Erosive esophagitis (K22.10) Active confirmed Problem 174670984 Gastroesophageal reflux disease, unspecified whether esophagitis present (K21.9) Active confirmed Plan Of Treatment Future Test Test Name Order Date COLONOSCOPY 03/26/2012 UPPER GI ENDOSCOPY 02/20/2023 COLONOSCOPY 02/20/2023 Insurance Providers Payer Name Payer Address Payer Phone Subscriber Number Group Number Insured Name Patient Relationship to Insured Coverage Start Date Coverage End Date [employer] [address] [place] [phone] [id number] SIMONA ARGUELLO Self - patient is the insured Medical (General) History Medical History History ICD Code COPD HPV/CIN2 Nephrolithiasis Colonoscopy 03/20, normal including biop sies Surgical History Surgery Date(Month/Year) Endometrial ablation Tubal ligation multple leep & laser surgeries Tendon surgery, trigger finger release
== END 2025-01-18 08:36 | disposition home or self-care (01) ==
LOC: HO.MAMMO 08:35
PROVIDERS: PCP Nurse Practitioner Family; Visit Provider Nurse Practitioner Family
DX: Z12.31 Encounter for screening mammogram for malignant neoplasm of breast (principal)
CPT/HCPCS: 77063; 77067

== ENCOUNTER → 2025-01-18 09:00 | Outpatient (BNV) | payer OTHER, SELFPAY | PROVIDERS: PCP Nurse Practitioner Family; Visit Provider Radiology Body Imaging | DX: Z12.31 Encounter for screening mammogram for malignant neoplasm of breast (principal) | CPT/HCPCS: 77063; 77067 ==

== ENCOUNTER 2025-01-19 14:04 | Outpatient (AMB) | payer OTHER, SELFPAY ==
--- OUTSIDE RECORDS SUMMARY | 2022-08-02 13:50 | XMS_ITS | Encounter Summary ---
Author Organization [facility] Address [address] [facility] [address] [place] [address] Phone Care Team Providers Care Power Plant Installer Name Role Phone Josse Junior MD Primary Care Provider Encounter Details Date Type Department Care Team (Late st Contact Info) Description 08/02/2022 12:50 PM EST Hospital Encounter [facility] [address] [place] [phone] Trini Abrams FNP [address] [place] [address] [email or web address] Social History Tobacco Use Types Packs/Day Years [...] appropriate lab work is recommended. Trini Abrams UX DESIGN MANAGER IMG XR CHEST Final Resul t documented in this encounter Visit Diagnoses Not on filedocumented in this encounter Additional Health Concerns Infection Onset Date Last Indicated Resolved Time CoV-Risk 08/02/2022 08/02/2022 08/13/2022 1:22 AM EST documented as of this encounter Care Teams Power Plant Installer Relationship Specialty Start Date End Date Josse Junior MD [address] [place] [address] PCP - General Family Medicine 01/17/22 documented as of this encounter Additional Source Comments The information contained in this document represents components of the legal health record. It is not the complete legal health record.[facility]
[2025-01-19 14:11] VITALS: BP 119/62; PULSE 99; O2SAT 97; BMI 27.6
--- NOTE | 2025-01-19 14:11 | A.OFFVIS_ITS ---
Vital Signs 01/19/25 14:11 Height 5 ft 3 in Weight 156 lb BMI 27.6 BP 119/62 Blood Pressure Location Lt brachial Position Sitting Pulse 99 Pulse Source Pulse Oximeter Pulse Oximetry (%) 97 Oxygen Delivery Method Room Air Intake Visit Reasons: CT scans results/ Hx of Asthma Allergies bee pollen (Bee Stings) Allergy (Mild, Verified 11/26/24 15:52) ANAPHYLAXIS HPI HPI CT scans results/ Hx of Asthma: Details: 49-year-old lady, active approximately 20 pack year smoker, followed for underlying? 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 She continues to use Anoro and albuterol MDI with slowly worsening control her symptoms. She was tried on full-dose theophylline, however was not able to tolerated secondary to tachycardia. She is also complain of worsening cough productive of chunky whitish sputum. She denies recent acute exacerbations. [facility] Medical History (Updated 01/19/25 @ 15:26 by Fox Carvajal MD) Multiple lipomas Depression with anxiety History of uterine fibroid Bilateral arm pain Bilateral hand pain Bilateral shoulder pain Family history of thyroid cancer Family history of sleep apnea History of depression Nicotine dependence GERD (gastroesophageal reflux disease) Hypercholesterolemia Surgical History History of release of tendon History of hand surgery History of bunionectomy of both great toes History of loop electrical excision procedure (LEEP) History of endometrial ablation Hx of tubal ligation Family History Father Hx of myocardial infarction Mother Hx of thyroid cancer Hx of cancer of lung Maternal Grandmother Hx of cancer of lung Maternal Grandfather History of prostate cancer Maternal Aunt Hx of cancer of uterus Paternal Grandmother History of colon cancer Other Mental health disorder Social History Housing: House Alcohol intake: current Alcohol intake frequency: holidays/special occasions only Alcohol type: beer Patient Tobacco Use Status: Current everyday Tobacco user Tobacco use type: Cigarette Cigarette Packs Per Day: 1 Cigarettes Per Day: 12 Years Smoked: 30 e-Cigarette/Vaping Use: Never Used Second Hand Smoke Exposure: No service: Yes Current occupational status: employed 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 Current occupational exposures/hazards: No Gender identity: Female Cognitive needs: No Hearing needs: No Vision needs: No Female Reproductive History Menstrual Age of Menarche: 14 Review of Systems Const Denies daytime sleepiness, Denies excessive sweating, Denies fatigue, Denies fever(s), Denies lethargy, Denies malaise, Denies night sweats, Denies snoring and Denies weight loss Eyes Denies blurry vision and Denies itchy eyes ENT Denies nasal congestion, Denies post nasal drip, Denies sinus pain, Denies sinus pressure and Denies other ( Thrush) Card Denies chest pain, Denies pedal edema, Denies dyspnea, Denies orthopnea and Denies paroxysmal nocturnal dyspnea Resp Reports cough, Denies hemoptysis, Denies excessive phlegm production, Denies dyspnea, Denies snoring and Denies wheezing GI Denies abdominal pain and Denies heartburn Musc Denies myalgias, Denies arthralgias and Denies joint swelling Skin/Breast Denies rash Neuro Denies memory loss and Denies seizure-like activity Psych Denies abnormal sleep pattern, Denies anxiety and Denies memory loss Endo Denies excessive sweating, Denies fatigue and Denies heat intolerance Cisco/Lymph Denies easy bruising Aller/Immun Denies itchy eyes, Denies seasonal rhinorrhea and Denies wheezing Physical Exam Vital Signs: Last Vital Signs Pulse 99 01/19/25 14:11 BP 119/62 01/19/25 14:11 Pulse Ox 97 01/19/25 14:11 Oxygen Delivery Method Room Air 01/19/25 14:11 BMI result Body Mass Index 27.6 Const General: no acute distress and alert Nutritional Appearance: not obese Orientation/consciousness: Other orientation findings ( oriented) HEENT Head: Yes atraumatic Eyes General: appearance normal, both eyes and all related structures Sclerae: sclerae normal EOM: EOMs intact bilaterally Neck Neck: Yes supple Lymphatic: no lymphadenopathy noted Resp Effort & Inspection: normal respiratory effort and no use of accessory muscles Auscultation: clear to auscultation bilaterally Cardio Rate: regular rate Rhythm: regular rhythm Heart sounds: no gallops, no murmurs and no rubs Skin General skin exam: other ( warm) Extrem General: No clubbing, No cyanosis and No edema Assessment & Plan Assessment & Plan (1) Asthma-COPD overlap syndrome: Code(s): J44.9 - Chronic obstructive pulmonary disease, unspecified Category: Medical Plan: Continue current regimen of Anoro, duo nebs, and albuterol MDI. Will add half dose theophylline. (2) Recurrent cough: Code(s): R05.8 - Other specified cough Category: Medical Plan: Will obtain induced sputum culture including fungal and AFB. Medications: New sodium chloride 7% For sputum induction 1 inh inhalation ONCE 120 mL 0RF theophylline ER 200 mg PO DAILY 30 caps 6RF Coding Level of Care Code Est Pt Level 4 (90756) Diagnoses Asthma-COPD overlap syndrome J44.9 Recurrent cough R05.8
--- OUTSIDE RECORDS SUMMARY | 2025-01-19 14:25 | XMS_ITS | Clinical Summary ---
Author Organization [facility] ity Address [address] [place] [address] Care Team Providers Care Analytics Leader Name Role Phone Bernabe Smith MD Primary Care Provider [phone] Social History Tobacco Use Types Packs/Day Years [...] age to complete this topic Care Teams Analytics Leader Relationship Specialty Start Date End Date Bernabe Smith MD [address] [place] [address] PCP - General 01/24/00
--- OUTSIDE RECORDS SUMMARY | 2025-01-19 14:25 | XMS_ITS | Patient Health Record ---
Author Organization [facility] Address [address] [place] [address] Care Team Providers Care Manager Urgent Care Name Role Phone Josse Junior Primary Care [...] Problem Status W/U Status Risk Notes Problem [id number] Colon cancer screening (Z12.11) Active confirmed Problem Gastroesophageal reflux disease (136215690) Gastroesophageal reflux disease (K21.9) Active confirmed Problem 03448872 Rectal pain (K62.89) Active confirmed Problem Erosive esophagitis (93350136) Erosive esophagitis (K22.10) Active confirmed Problem 527280734 Gastroesophageal reflux disease, unspecified whether esophagitis present (K21.9) Active confirmed Plan Of Treatment Future Test Test Name Order Date COLONOSCOPY 03/26/2012 UPPER GI ENDOSCOPY 02/20/2023 COLONOSCOPY 02/20/2023 Insurance Providers Payer Name Payer Address Payer Phone Subscriber Number Group Number Insured Name Patient Relationship to Insured Coverage Start Date Coverage End Date [employer] [address] [place] [phone] [id number] SIMONA ARGUELLO Self - patient is the insured Medical (General) History Medical History History ICD Code COPD HPV/CIN2 Nephrolithiasis Colonoscopy 03/20, normal including biop sies Surgical History Surgery Date(Month/Year) Endometrial ablation Tubal ligation multple leep & laser surgeries Tendon surgery, trigger finger release
== END 2025-01-19 14:36 | disposition home or self-care (01) ==
LOC: HO.HPS 14:05
PROVIDERS: PCP Nurse Practitioner Family; Visit Provider Internal Medicine Pulmonary Disease
DX: J44.9 Chronic obstructive pulmonary disease, unspecified (principal); R05.8 Other specified cough
CPT/HCPCS: 99214

== ENCOUNTER 2025-02-01 11:26 | Outpatient (AMB) | payer OTHER, SELFPAY ==
--- OUTSIDE RECORDS SUMMARY | 2022-08-02 13:50 | XMS_ITS | Encounter Summary ---
Author Organization [facility] Address [address] [facility] [address] [place] [phone] Phone Care Team Providers Care Soda Maker Name Role Phone Josse Junior MD Primary Care Provider Encounter Details Date Type Department Care Team (Late st Contact Info) Description 08/02/2022 12:50 PM EST Hospital Encounter [facility] [address] [place] [phone] Trini Abrams FNP [address] [place] [address] [email or web address] Social History Tobacco Use Types Packs/Day Years [...] appropriate lab work is recommended. Trini Abrams UNDERWRITING CLERKS SUPERVISOR IMG XR CHEST Final Resul t documented in this encounter Visit Diagnoses Not on filedocumented in this encounter Additional Health Concerns Infection Onset Date Last Indicated Resolved Time CoV-Risk 08/02/2022 08/02/2022 08/13/2022 1:22 AM EST documented as of this encounter Care Teams Soda Maker Relationship Specialty Start Date End Date Josse Junior MD [address] [place] [address] PCP - General Family Medicine 01/17/22 documented as of this encounter Additional Source Comments The information contained in this document represents components of the legal health record. It is not the complete legal health record.[facility]
--- NOTE | 2025-02-01 11:27 | MHC.OFFVIS ---
Vital Signs 02/01/25 11:47 Height 5 ft 3 in Weight 157 lb BMI 27.8 BP 130/74 Blood Pressure Location Rt brachial Position Sitting Pulse 84 Intake Visit Reasons: Excision Lipoma 2 sites Intake Note: Patient here for lipoma excision on RUQ and Mid back. Patient c/o: reports no changes to lipomas. Financial Coach Required: No Accompanied by: Self / Same As Patient Allergies bee pollen (Bee Stings) Allergy (Mild, Verified 02/01/25 11:48) ANAPHYLAXIS PFSH Medical History Multiple lipomas Depression with anxiety History of uterine fibroid Bilateral arm pain Bilateral hand pain Bilateral shoulder pain Family history of thyroid cancer Family history of sleep apnea History of depression Nicotine dependence GERD (gastroesophageal reflux disease) Hypercholesterolemia Surgical History History of release of tendon History of hand surgery History of bunionectomy of both great toes History of loop electrical excision procedure (LEEP) History of endometrial ablation Hx of tubal ligation Family History Father Hx of myocardial infarction Mother Hx of thyroid cancer Hx of cancer of lung Maternal Grandmother Hx of cancer of lung Maternal Grandfather History of prostate cancer Maternal Aunt Hx of cancer of uterus Paternal Grandmother History of colon cancer Other Mental health disorder Social History Housing: House Alcohol intake: current Alcohol intake frequency: holidays/special occasions only Alcohol type: beer Patient Tobacco Use Status: Current everyday Tobacco user Tobacco use type: Cigarette Cigarette Packs Per Day: 1 Cigarettes Per Day: 12 Years Smoked: 30 e-Cigarette/Vaping Use: Never Used Second Hand Smoke Exposure: No service: Yes 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 She was then placed in prone position. The area of the lipoma on the mid back was prepped and draped. Lidocaine 1% was used for local anesthesia. I made an incision on the skin overlying the lipoma with a blade 15.. The incision was carried down through the full-thickness of the skin subcutaneous fat until the lipoma was visualized. I sharply dissected the lipoma of the rest of the subcutaneous layer . This seemed to extend deeper into the muscular layer. I removed as much of the lipomas I good without going too deep into the muscular layer as she was getting uncomfortable due to the pain of the dissection. I removed the about a 2 cm lipomatous tissue. I closed the incision with full-thickness nylon 3-0 simple interrupted sutures as well. She tolerated the procedure well. There were no immediate complications. There was minimal blood loss. She was given wound care instructions. I will see her in the office in about 2 weeks for removal sutures. [id number]-[id number]/arms/legs 1.1-2cm Procedure code (CPT) selection complete Assessment & Plan Assessment & Plan (1) Lipoma: Code(s): D17.9 - Benign lipomatous neoplasm, unspecified Category: Medical Qualifiers: Lipoma location: trunk Qualified Code(s): D17.1 - Benign lipomatous neoplasm of skin and subcutaneous tissue of trunk Plan: The lipoma on the back was excised but it appeared that there was more of this going deeper into the muscle layer and fascia. I removed as much of the lipomas superficial to this as she was getting more uncomfortable with the dissection. I will see her in the office in about 2 weeks for removal sutures. Orders: Orders Surgical 02/01/25 D17.1 - Benign lipomatous neoplasm of skin and subcutaneous tissue of trunk Coding Level of Care Code Procedure Only Diagnoses Lipoma of torso D17.1 Lipoma location: trunk CPT Codes Trunk/Arms/Legs - CPT: 98030-snsmu/arms/legs 1.1-2cm ([id number])
[2025-02-01 11:47] VITALS: BP 130/74; PULSE 84; BMI 27.8
--- OUTSIDE RECORDS SUMMARY | 2025-02-01 12:22 | XMS_ITS | Clinical Summary ---
Author Organization [facility] ity Address [address] [place] [address] Care Team Providers Care Inventory Control Manager Name Role Phone Bernabe Smith MD Primary Care Provider [phone] Social History Tobacco Use Types Packs/Day Years [...] age to complete this topic Care Teams Inventory Control Manager Relationship Specialty Start Date End Date Bernabe Smith MD [address] [place] [address] PCP - General 01/24/00
--- OUTSIDE RECORDS SUMMARY | 2025-02-01 12:23 | XMS_ITS | Clinical Summary ---
Author Organization [facility] Address [address] [facility] [address] [place] [address] Phone Care Team Providers Care Gambling Monitor Name Role Phone Josse Junior MD Primary Care Provider Allergies Active Allergy Reactions Criticality Noted Date Comments Bee Pollen Anaphylaxis High 01/17/2022 Medications albuterol 90 mcg/actuation inhaler 01/09/2022 Active FLUoxetine (PROZAC) 20 MG capsule Take 20 mg by mouth daily. 12/25/2021 Active EPINEPHrine 0.3 mg/0.3 mL auto-injector Inject 0.3 mg into the muscle as needed for anaphylaxis . Active ANORO ELLIPTA 62.5-25 mcg/actuation diskus inhaler inhale 1 PUFF BY MOUTH every 24 hours 1 each 1 08/02/2022 Active Active Problems Problem Noted Date Diagnosed Date Change in bowel habit 11/20/2022 11/20/2022 Immunizations Immunization Administration Dates Next Due COVID-19 (Pre-03/31) Pfizer Vaccine, mRNA, PF 06/11/2021,06/21/2020,05/31/2020 INFLUENZA, SPLIT VIRUS, TRIVALENT PF 03/11/2024 INFLUENZA, SPLIT VIRUS, TRIV ALENT W/ PRESERVATIVE IM 04/15/2023 Influenza Quadrivalent Preservative Free IM 11/2021 Social History Tobacco Use Types Packs/Day Years Used Date Smoking Tobacco: Every Day Cigarettes Passive Smoke Exposure: Current Smokeless Tobacco: Never Tobacco Cessation:Ready to Q uit: Not Asked; Counseling Given: No Education Answer Date Recorded Are you interested [...] on file Sexual Orientation Not on file Last Filed Vital Signs Vital Sign Reading Time Taken Comments Blood Pressure 144/82 11/20/2022 1:33 PM EDT Pulse 81 11/20/2022 1:33 PM EDT Temperature 37 C (98.6 F) 11/20/2022 1:33 PM EDT Respiratory Rate 20 11/20/2022 1:33 PM EDT Oxygen Saturation 98% 11/20/2022 1:33 PM EDT Inhaled Oxygen Concentration - - Weight 66.7 kg (147 lb) 11/20/2022 1:33 PM EDT Height 157.5 cm (5' 2 ) 11/20/2022 1:33 PM EDT Body Mass Index 26.89 11/20/2022 1:33 PM EDT Plan of Treatment Health Maintenance Due Date Last Done Comments Adult Td,Tdap Booster 1975 LIPID PANEL 1975 DEPRESSION SCREENING 1987 SMOKING Hx and SMOKELESS TOBACCO SCREENING 1988 HEPATITIS C SCREENING 1993 HIV ONE-TIME SCREENING (18-6 5 YEARS) 1993 PNEUMOCOCCAL VACCINES (0-49 years) (1 of 2 - PCV) 1994 PAP SMEAR 1996 MAMMOGRAM 2015 COLOGUARD 2020 COLONOSCOPY 2020 COLORECTAL CANCER SCREENING 2020 FIT TEST 2020 FOBT 2020 SIGMOIDOSCOPY 2020 VIRTUAL COLONOSCOPY 2020 COVID-19 VACCINE (4 - 2023-2 5 season) 2024 06/11/2021, 06/21/2020, 05/31/2020 SCREENING FOR DIABETES 01/17/2025 01/17/2022 HEPATITIS A VACCINES Aged Out No long er eligible based on patient's age to complete this topic HIB VACCINES Aged Out No longer eligi ble based on patient's age to complete this topic MENINGOCOCCAL VACCINES (ACWY) Aged Out No longer eligible based on patient's age to complete this topic MENINGOCOCCAL VACCINES (B) Aged Out N o longer eligible based on patient's age to complete this topic Medical Devices Not on file Insurance [address] [address] [place] [address] [facility] [employer]PL[employer] [employer] [facility] [employer] [facility] [employer] [employer] EMPL[employer] [place] [id number] Care Teams Gambling Monitor Relationship Specialty Start Date End Date Josse Junior MD [address] [place] [address] PCP - General Family Medicine 01/17/22 Additional Source Comments The information contained in this document represents components of the legal health record. It is not the complete legal health record.[facility]
--- OUTSIDE RECORDS SUMMARY | 2025-02-01 12:23 | XMS_ITS | Patient Health Record ---
Author Organization [facility] Address [address] [place] [address] Care Team Providers Care Cyber Legal Advisor Name Role Phone Josse Junior Primary Care [...] Problem Status W/U Status Risk Notes Problem 255036671 Colon cancer screening (Z12.11) Active confirmed Problem Gastroesophageal reflux disease (460846756) Gastroesophageal reflux disease (K21.9) Active confirmed Problem 97095108 Rectal pain (K62.89) Active confirmed Problem Erosive esophagitis (15356965) Erosive esophagitis (K22.10) Active confirmed Problem 211782523 Gastroesophageal reflux disease, unspecified whether esophagitis present (K21.9) Active confirmed Plan Of Treatment Future Test Test Name Order Date COLONOSCOPY 03/26/2012 UPPER GI ENDOSCOPY 02/20/2023 COLONOSCOPY 02/20/2023 Insurance Providers Payer Name Payer Address Payer Phone Subscriber Number Group Number Insured Name Patient Relationship to Insured Coverage Start Date Coverage End Date [employer] [address] [place] [phone] [id number] SIMONA ARGUELLO Self - patient is the insured Medical (General) History Medical History History ICD Code COPD HPV/CIN2 Nephrolithiasis Colonoscopy 03/20, normal including biop sies Surgical History Surgery Date(Month/Year) Endometrial ablation Tubal ligation multple leep & laser surgeries Tendon surgery, trigger finger release
== END 2025-02-01 12:15 | disposition home or self-care (01) ==
LOC: HO.HGS 11:26
PROVIDERS: PCP Nurse Practitioner Family; Visit Provider Surgery
DX: D17.1 Benign lipomatous neoplasm of skin and subcutaneous tissue of trunk (principal)
CPT/HCPCS: 11403

== ENCOUNTER 2025-02-01 11:26 | Outpatient (REF) | payer OTHER, SELFPAY | END 2025-02-01 11:27 | disposition home or self-care (01) | LOC: HO.LNP 11:26 | PROVIDERS: PCP Nurse Practitioner Family; Visit Provider Surgery | DX: D17.1 Benign lipomatous neoplasm of skin and subcutaneous tissue of trunk (principal) | CPT/HCPCS: 11403; 88304 ==

== ENCOUNTER 2025-02-14 11:16 | Outpatient (AMB) | payer OTHER, SELFPAY ==
--- OUTSIDE RECORDS SUMMARY | 2022-08-02 13:50 | XMS_ITS | Encounter Summary ---
Author Organization [facility] Address [address] [facility] [address] [place] [address] Phone Care Team Providers Care Operator Command Support Systems Name Role Phone Josse Junior MD Primary Care Provider Encounter Details Date Type Department Care Team (Late st Contact Info) Description 08/02/2022 12:50 PM EST Hospital Encounter [facility] [address] [place] [address] Trini Abrams FNP [address] [place] [address] [email or web address] Social History Tobacco Use Types Packs/Day Years [...] appropriate lab work is recommended. Trini Abrams SATELLITE TV TECHNICIAN IMG XR CHEST Final Resul t documented in this encounter Visit Diagnoses Not on filedocumented in this encounter Additional Health Concerns Infection Onset Date Last Indicated Resolved Time CoV-Risk 08/02/2022 08/02/2022 08/13/2022 1:22 AM EST documented as of this encounter Care Teams Operator Command Support Systems Relationship Specialty Start Date End Date Josse Junior MD [address] [place] [address] PCP - General Family Medicine 01/17/22 documented as of this encounter Additional Source Comments The information contained in this document represents components of the legal health record. It is not the complete legal health record.[facility]
--- NOTE | 2025-02-14 11:27 | MHC.OFFVIS ---
Vital Signs 02/14/25 11:35 Height 5 ft 3 in Weight 156 lb 8.451 oz BMI 27.7 Respiration 16 Intake Visit Reasons: redness at excision site Intake Note: Patient is seen in office for post op assessment post excision of lipoma on RUQ and Mid back on 02/01/25 Dr Herrera. Pt c/o: per pt stitches fell out on its own, has a bulge and pain in the area Anesthesia Attending Required: No Accompanied by: Self / Same As Patient Allergies bee pollen (Bee Stings) Allergy (Mild, Verified 02/14/25 11:35) ANAPHYLAXIS HPI HPI redness at excision site: Details: reports pain in the mid back at the site of the excision. States that at 4 days after the procedure she began noticing some swelling, discomfort at the site. States the sutures fell out at some point that day. there has been no redness surrounidng the site, no drainage but she feels a small lump. She denies fevers or chills at home. [facility] Medical History Multiple lipomas Depression with anxiety History of uterine fibroid Bilateral arm pain Bilateral hand pain Bilateral shoulder pain Family history of thyroid cancer Family history of sleep apnea History of depression Nicotine dependence GERD (gastroesophageal reflux disease) Hypercholesterolemia Surgical History History of release of tendon History of hand surgery History of bunionectomy of both great toes History of loop electrical excision procedure (LEEP) History of endometrial ablation Hx of tubal ligation Family History Father Hx of myocardial infarction Mother Hx of thyroid cancer Hx of cancer of lung Maternal Grandmother Hx of cancer of lung Maternal Grandfather History of prostate cancer Maternal Aunt Hx of cancer of uterus Paternal Grandmother History of colon cancer Other Mental health disorder Social History Housing: House Alcohol intake: current Alcohol intake frequency: holidays/special occasions only Alcohol type: beer Patient Tobacco Use Status: Current everyday Tobacco user Tobacco use type: Cigarette Cigarette Packs Per Day: 1 Cigarettes Per Day: 12 Years Smoked: 30 e-Cigarette/Vaping Use: Never Used Second Hand Smoke Exposure: No service: Yes Current occupational status: employed 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 Current occupational exposures/hazards: No Gender identity: Female Cognitive needs: No Hearing needs: No Vision needs: No Female Reproductive History Menstrual Age of Menarche: 14 Review of Systems Const All systems reviewed & are unremarkable except as noted in HPI and below Physical Exam Vital Signs: Last Vital Signs Resp 16 02/14/25 11:35 BMI result Body Mass Index 27.7 Const General: comfortable and no acute distress Orientation/consciousness: patient oriented x3 Skin Other: left mid back: 2 cm incision site, intact, tender to palpation, small amount of palpable fluid deep to the incision. no drainage. No surrounding erythema. no warmth. Neuro General: patient oriented x3 Assessment & Plan Assessment & Plan (1) S/P excision of lipoma: Code(s): Z98.890 - Other specified postprocedural states; Z86.018 - Personal history of other benign neoplasm Category: Medical Plan 49 year old female s/p lipoma excision of the mid back presenting to the office for routine follow up, and pain at the incision site. Patient reports that about 4 days after the procedure she began having discomfort in the area with increased swelling. she states that the sutures that were in place fell off on their own at this time as well. She noticed a lump that was larger than the original lipoma that is now mildly tender and she was concerned for infection or abscess formation. She has not had any fevers or chills at home, denies drainage from the incision site. On exam the area appears to be healing well. The excision site is intact, there were no sutures in place. The area is tender to palpation. There was no surrounding erythema, no active drainage. There was a small approximately 2 cm fluid collection or mass that could represent a seroma or residual lipoma due to the inability to fully excise this during the procedure because of the involvement of the muscle and fascial layer. Reassured the patient that if this is a seroma, it will likely decrease with time and resolve without intervention. This does not appear to be infectious in nature at this time. We did discuss the pathology results that confirm lipoma, no atypia noted. Patient will continue to monitor this over time, if not resovling patient can call to schedule an appointment for reevaluation. Coding Level of Care Code Est Pt Level 3 (56704) Diagnoses S/P excision of lipoma Z98.890; Z86.018
[2025-02-14 11:35] VITALS: RESP 16; BMI 27.7
--- OUTSIDE RECORDS SUMMARY | 2025-02-14 13:58 | XMS_ITS | Clinical Summary ---
Author Organization [facility] ity Address [address] [place] [address] Care Team Providers Care Rn Clinical Documentation Specialist Name Role Phone Bernabe Smith MD Primary Care Provider [phone] Social History Tobacco Use Types Packs/Day Years [...] Cervical Cancer Screening: P ap Smear 1996 Depression Screening 06/09/2024 COVID-19 Vaccine ( - 2023-2 5 season) 2025 Influenza Vaccine (#1) 2025 HIB Vaccines Aged [...] age to complete this topic Care Teams Rn Clinical Documentation Specialist Relationship Specialty Start Date End Date Bernabe Smith MD [address] [place] [address] PCP - General 01/24/00
--- OUTSIDE RECORDS SUMMARY | 2025-02-14 13:59 | XMS_ITS | Patient Health Record ---
Author Organization [facility] Address [address] [place] [address] Care Team Providers Care Printed Circuit Board Panels Plater Name Role Phone Josse Junior Primary Care Provider Unavailab Olegario Edge Jr Unavailable [phone] Allergies Allergen (clinical drug ingredient) Drug/Non [...] Problem Status W/U Status Risk Notes Problem [id number] Colon cancer screening (Z12.11) Active confirmed Problem Gastroesophageal reflux disease (511014093) Gastroesophageal reflux disease (K21.9) Active confirmed Problem 25211251 Rectal pain (K62.89) Active confirmed Problem Erosive esophagitis (43304229) Erosive esophagitis (K22.10) Active confirmed Problem 163457458 Gastroesophageal reflux disease, unspecified whether esophagitis present (K21.9) Active confirmed Plan Of Treatment Future Test Test Name Order Date COLONOSCOPY 03/26/2012 UPPER GI ENDOSCOPY 02/20/2023 COLONOSCOPY 02/20/2023 Insurance Providers Payer Name Payer Address Payer Phone Subscriber Number Group Number Insured Name Patient Relationship to Insured Coverage Start Date Coverage End Date [employer] [address] [place] [phone] [id number] SIMONA ARGUELLO Self - patient is the insured Medical (General) History Medical History History ICD Code COPD HPV/CIN2 Nephrolithiasis Colonoscopy 03/20, normal including biop sies Surgical History Surgery Date(Month/Year) Endometrial ablation Tubal ligation multple leep & laser surgeries Tendon surgery, trigger finger release
--- OUTSIDE RECORDS SUMMARY | 2025-02-14 13:59 | XMS_ITS | Clinical Summary ---
Author Organization [facility] Address [address] [facility] [address] [place] [address] Phone Care Team Providers Care Senior Hardware Engineer Name Role Phone Josse Junior MD Primary [...] FOBT 2020 SIGMOIDOSCOPY 2020 VIRTUAL COLONOSCOPY 2020 INFLUENZA VACCINE (#1) 2025 , 04/15/2023, 03/14/2022 SCREENING FOR DIABETES 01/17/2025 01/17/2022 COVID-19 VACCINE (4 - 2024-2 6 season) 2025 06/11/2021, 06/21/2020, 05/31/2020 HEPATITIS A VACCINES Aged Out No long [...] topic Medical Devices Not on file Insurance [employer] FAMILY [employer] FAM[employer] [employer] [employer] [employer] [employer] [employer] [employer] [employer]ES FAMILY [employer] EMPLOYEES FAMILY [employer] FAMILY Care Teams Senior Hardware Engineer Relationship Specialty Start Date End Date Josse Junior MD [address] [place] [address] PCP - General Family Medicine 01/17/22 Additional Source Comments The information contained in this document represents components of the legal health record. It is not the complete legal health record.[facility]
== END 2025-02-14 11:40 | disposition home or self-care (01) ==
LOC: HO.HGS 11:17
PROVIDERS: PCP Nurse Practitioner Family
DX: Z98.890 Other specified postprocedural states (principal); Z86.018 Personal history of other benign neoplasm
CPT/HCPCS: 99213

== ENCOUNTER → 2025-02-14 11:16 | Outpatient (BNVA) | payer OTHER, SELFPAY | PROVIDERS: PCP Nurse Practitioner Family | DX: D17.1 Benign lipomatous neoplasm of skin and subcutaneous tissue of trunk (principal); Z98.890 Other specified postprocedural states; Z86.018 Personal history of other benign neoplasm; F17.210 Nicotine dependence, cigarettes, uncomplicated; Z13.89 Encounter for screening for other disorder ==

== ENCOUNTER 2025-03-28 12:28 | Outpatient (AMB) | payer OTHER, SELFPAY ==
--- NOTE | 2025-03-28 12:41 | MHC.OFFVIS ---
Vital Signs 03/28/25 12:45 Height 5 ft 3 in Weight 158 lb 4.67 oz BMI 28.0 BP 120/64 Blood Pressure Location Lt brachial Position Sitting Pulse 81 Pulse Source Pulse Oximeter Intake Visit Reasons: f/up-cta 02/23 Book Reviewer Required: No Accompanied by: Self / Same As Patient Allergies bee pollen (Bee Stings) Allergy (Mild, Verified 02/14/25 11:35) ANAPHYLAXIS Medication List - Last Reconciled 03/28/25 by Stephan Oliver MD albuterol sulfate 90 mcg/actuation (ProAir HFA) 2 puffs inhalation Q4-6H PRN 90 days aspirin 81 mg PO DAILY cholestyramine (Cholestyramine Light) 4 grams PO DAILY epinephrine 0.3 mL IM ONCE PRN fluoxetine 20 mg PO DAILY 90 days ipratropium-albuterol 0.5 mg-3 mg(2.5 mg base)/3 mL 3 mL inhalation Q4-6H PRN levocetirizine (Allergy Relief (levocetirizine)) 5 mg PO DAILY montelukast 10 mg PO BEDTIME nebulizer and compressor As directed pantoprazole (Protonix) 40 mg PO DAILY rosuvastatin (Crestor) 20 mg PO DAILY sodium chloride 7% 1 inh inhalation ONCE theophylline ER 200 mg PO DAILY umeclidinium-vilanterol 62.5-25 mcg/actuation (Anoro Ellipta) 1 inh inhalation Q24H 90 days HPI Comments Details: [age] year old female here for assessment of chest discomfort. 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 She is a smoker since age 14. She continues to smoke at this point. She has dyspnea and fatigue with going uphill. She does not get any chest discomfort but she had episodes of chest discomfort at rest a few times. Last episode was while driving when she had sudden heaviness in her chest. She does not get these symptoms with activity and in fact was hiking afterwards without any significant chest discomfort. She does get dyspnea and fatigue with activities. She is taking baby aspirin and rosuvastatin. Her last LDL cholesterol was 190 and she has started taking rosuvastatin few days ago. She is on treatment for COPD. 03/28/2025: She is here for follow-up. She has not had any further chest discomfort. She had coronary CTA which showed mild coronary disease. Echocardiography showed normal LV systolic function with grade 1 diastolic dysfunction. She continues to hand and was in [place] recently. She is saying when she goes up steep hills she gets out of breath. This is unusual exercise for her and she does not do this kind of activities frequently. She drinks soda and we discussed that consulted sugars especially fructose can affect triglyceride levels. Her LDL previously was 190 and repeat in November was 142. Triglycerides were 328. She is on rosuvastatin 20 mg and cholestyramine. [facility] Medical History Multiple lipomas Depression with anxiety History of uterine fibroid Bilateral arm pain Bilateral hand pain Bilateral shoulder pain Family history of thyroid cancer Family history of sleep apnea History of depression Nicotine dependence GERD (gastroesophageal reflux disease) Hypercholesterolemia Surgical History History of release of tendon History of hand surgery History of bunionectomy of both great toes History of loop electrical excision procedure (LEEP) History of endometrial ablation Hx of tubal ligation Family History Father Hx of myocardial infarction Mother Hx of thyroid cancer Hx of cancer of lung Maternal Grandmother Hx of cancer of lung Maternal Grandfather History of prostate cancer Maternal Aunt Hx of cancer of uterus Paternal Grandmother History of colon cancer Other Mental health disorder Social History Housing: House Alcohol intake: current Alcohol intake frequency: holidays/special occasions only Alcohol type: beer Patient Tobacco Use Status: Current everyday Tobacco user Tobacco use type: Cigarette Cigarette Packs Per Day: 1 Cigarettes Per Day: 12 Years Smoked: 30 e-Cigarette/Vaping Use: Never Used Second Hand Smoke Exposure: No service: Yes Current occupational status: employed 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 Current occupational exposures/hazards: No Gender identity: Female Cognitive needs: No Hearing needs: No Vision needs: No Female Reproductive History Menstrual Age of Menarche: 14 Review of Systems Const Denies chills, Denies fatigue, Denies fever(s), Denies frequent falls, Denies weakness, Denies weight gain and Denies weight loss ENT Denies dizziness Card Denies chest pain, Denies leg edema, Denies lightheadedness, Denies palpitations, Denies dyspnea and Denies dyspnea on exertion Resp Denies cough, Denies dyspnea and Denies dyspnea on exertion GI Denies hematochezia Musc Denies abnormal gait, Denies muscle weakness, Denies numbness, Denies radiating pain into limb and Denies tingling Neuro Denies abnormal gait, Denies dizziness, Denies frequent falls, Denies numbness, Denies tingling and Denies weakness Endo Denies fatigue and Denies palpitations Physical Exam Vital Signs: Last Vital Signs Pulse 81 03/28/25 12:45 BP 120/64 03/28/25 12:45 BMI result Body Mass Index 28.0 GENERAL APPEARANCE: in no acute distress. NECK: no carotid bruit, no jugular venous distention. SKIN: no suspicious lesions, warm and dry. HEART: no murmurs, regular rate and rhythm. LUNGS: clear to auscultation bilaterally. ABDOMEN: soft, nontender. EXTREMITIES: no edema. PERIPHERAL PULSES: equal. NEUROLOGIC: No gross deficits, AAO X 3 Assessment & Plan Assessment & Plan (1) Hypercholesterolemia: Comment: 11/2024 ^ CRP, Apo A and B Code(s): E78.00 - Pure hypercholesterolemia, unspecified Category: Medical (2) Family history of ID (myocardial infarction): Comment: dad Code(s): Z82.49 - Family history of ischemic heart disease and other diseases of the circulatory system Category: Medical (3) Chest pain: Code(s): R07.9 - Chest pain, unspecified Category: Medical Plan 49-year-old female who is here for follow-up. Chest pain has resolved. She had coronary CTA which showed mild coronary atherosclerosis. We discussed about preventive strategies including exercise, diet and cholesterol management. Her LDL was 190 and repeat was 142 in November. She has started rosuvastatin at that time. We should repeat another fasting LDL cholesterol. She has grade 1 diastolic dysfunction on echocardiography. She does not have any symptoms for congestive heart failure currently. I have advised her that she should be exercising regularly. Continue same medications for now. She will have repeat lipid panel and we will adjust the medications after that. Her LDL should be less than 70 and ideally less than 55. Follow-up in 1 year. Thank you for allowing me to participate in the care of your patient. Please feel free to contact me if you have any questions. Orders: Orders Lipid Panel Today E78.00 - Pure hypercholesterolemia, unspecified Coding Level of Care Code Est Pt Level 4 (99540) Diagnoses Hypercholesterolemia E78.00 Family history of ID (myocardial infarction) Z82.49 Chest pain R07.9
[2025-03-28 12:45] VITALS: BP 120/64; PULSE 81; BMI 28.0
== END 2025-03-28 13:07 | disposition home or self-care (01) ==
LOC: HO.HCS 12:29
PROVIDERS: PCP Nurse Practitioner Family; Visit Provider Internal Medicine Cardiovascular Disease
DX: E78.00 Pure hypercholesterolemia, unspecified (principal); Z82.49 Family history of ischemic heart disease and other diseases of the circulatory system; R07.9 Chest pain, unspecified
CPT/HCPCS: 99214

== ENCOUNTER 2025-04-20 09:00 | Outpatient (REF) | payer OTHER, SELFPAY ==
--- OUTSIDE RECORDS SUMMARY | 2022-08-02 12:50 | XMS_ITS | Encounter Summary ---
Author Organization [facility] Address [address] [facility] [facility] [address] [place] [id number] Phone Care Team Providers Care Inside Sales Director Name Role Phone Josse Junior MD Primary Care Provider Encounter Details Date Type Department Care Team (Late st Contact Info) Description 08/02/2022 12:50 PM EST Hospital Encounter [facility] [address] [place] [id number] Trini Abrams FNP [address] [place] [address] [email or web address] Social History Tobacco Use Types Packs/Day Years Used Date Smoking Tobacco: Every Day Cigarettes Passive Smoke Exposure: Current Smokeless Tobacco: Never Education Answer Date Recorded Are you interested in more education? Not on mariah e 10/05/2022 Are you concerned about learning? Not on file 10/05/2022 No 10/05/2022 No 10/05/2022 Digital Access Answer Date Recorded No 11/03/2022 No 11/03/2022 Reliable internet access at home? Not on file 11/03/2022 Device with a working camera? Not on file Comments Unknown Sex and Gender Information Value Date Recorded Sex Assigned at Not on file Legal Sex Female 10:02 AM EDT Gender Identity Not on file Sexual Orientation Not on file documented as of this encounter Plan of Treatment Not on file documented as of this encounter Procedures Procedure Name Priority Date/Time Associated Diagnosis Comments XR CHEST PA AND LATERAL 2 VIEWS Urgent/patient waiting 08/02/2022 12:53 PM EST Acute bronchitis, unspecified organism documented in this encounter Results * XR CHEST PA AND LATERAL 2 VIEWS (08/02/2022 12:53 PM EST) Anatomical Region Laterality Modality Chest Computed Radiogr aphy 08/02/2022 12:5 5 PM EST Impressions 08/02/2022 12:58 PM EST Mild coarsening of the bronchovascular markings in the bilateral lower lung jimenez without focal consolidation may reflect changes related to chronic parenchymal change given the provided history, atypical infection/bronchitis, or a combination of these processes. Correlation with patient's symptoms and appropriate lab work is recommended. Narrative 08/02/2022 12:58 PM EST Procedure: XR CHEST PA AND LATERAL 2 VIEWS Clinical indication: 47 years Female with a provided clinical history of * Cough, persistent; hx asthma and smoking, out of one of her inhalers, dust exposure and now severe coughing, etc Comparison: None FINDINGS: Devices/Tubes/Lines: None. Lungs: Mild coarsening of the bronchovascular markings in the bilateral lower lung jimenez without focal consolidation. No overt pulmonary edema. Pleura: No pleural effusion or pneumothorax. Heart/Mediastinum: Cardiac silhouette is within normal limits. Bones/Soft Tissues: There is accentuated kyphosis at the lower thoracic spine secondary to age-indeterminate but chronic appearing anterior wedge compression deformities. Procedure Note Danish Torres MD - 08/02/2022 Procedure: XR CHEST PA AND LATERAL 2 VIEWS Clinical indication: 47 years Female with a provided clinical history of *Cough, persistent; hx asthma and smoking, out of one of her inhalers, dustexposure and now severe coughing, etc Comparison: None FINDINGS: Devices/Tubes/Lines: None. Lungs: Mild coarsening of the bronchovascular markings in the bilaterallower lung jimenez without focal consolidation. No overt pulmonary edema. Pleura: No pleural effusion or pneumothorax. Heart/Mediastinum: Cardiac silhouette is within normal limits. Bones/Soft Tissues: There is accentuated kyphosis at the lower thoracicspine secondary to age-indeterminate but chronic appearing anterior wedgecompression deformities. IMPRESSION: Mild coarsening of the bronchovascular markings in the bilateral lowerlung jimenez without focal consolidation may reflect changes related tochronic parenchymal change given the provided history, atypicalinfection/bronchitis, or a combination of these processes. Correlationwith patient's symptoms and appropriate lab work is recommended. Trini Abrams POTTERY DECORATOR IMG XR CHEST Final Resul t documented in this encounter Visit Diagnoses Not on filedocumented in this encounter Additional Health Concerns Infection Onset Date Last Indicated Resolved Time CoV-Risk 08/02/2022 08/02/2022 08/13/2022 1:22 AM EST documented as of this encounter Care Teams Inside Sales Director Relationship Specialty Start Date End Date Josse Junior MD PCP - General Family Medicine 01/17/22 documented as of this encounter Additional Source Comments The information contained in this document represents components of the legal health record. It is not the complete legal health record.[facility]
--- OUTSIDE RECORDS SUMMARY | 2025-04-20 09:35 | XMS_ITS | Clinical Summary ---
Author Organization [facility] Address [address] [facility] [address] [place] [address] Phone Care Team Providers Care Electronic Assembly Name Role Phone Josse Junior MD Primary [...] PF 06/11/2021,06/21/2020,05/31/2020 INFLUENZA, SPLIT VIRUS, TRIVALENT PF 03/01/2025, 03/11/2024 INFLUENZA, SPLIT VIRUS, TRIV ALENT W/ PRESERVATIVE IM 04/15/2023 Influenza Quadrivalent Preservative Free IM 11/2021 Social History Tobacco Use Types Packs/Day Years Used Date Smoking Tobacco: Every Day Cigarettes Passive Smoke Exposure: Current Smokeless Tobacco: Never Tobacco Cessation:Ready to Q uit: Not Asked; Counseling Given: No Education Answer Date Recorded Are you interested in more education? Not on mairah e 10/05/2022 Are you concerned about learning? [...] HEPATITIS C SCREENING 1993 HIV ONE-TIME SCREENING (18-65 YEARS) 1993 PNEUMOCOCCAL VACCINES (0-49 years) (1 of 2 - PCV) 1994 PAP SMEAR 1996 MAMMOGRAM 2015 COLOGUARD 2020 COLONOSCOPY 2020 COLORECTAL CANCER SCREENING 2020 FIT TEST 2020 FOBT 2020 SIGMOIDOSCOPY 2020 VIRTUAL COLONOSCOPY 2020 SCREENING FOR DIABETES 01/17/2025 01/17/2022 COVID-19 VACCINE ( season) 2025 06/11/2021, 06/21/2020, 05/31/2020 INFLUENZA VACCINE Completed 03/01/2025, , 04/15/2023, Additional history exists HEPATITIS A VACCINES Aged Out No long er eligible based on patient's age to complete this topic HIB VACCINES Aged Out No longer eligi ble based on patient's age to complete this topic IPV VACCINES Aged Out No longer eligi ble based on patient's age to complete this topic MENINGOCOCCAL VACCINES (ACWY) Aged Out No longer eligible based on patient's age to complete this topic MENINGOCOCCAL VACCINES (B) Aged Out N o longer eligible based on patient's age to complete this topic Medical Devices Not on file Insurance [employer] FAM[employer] [place] [address] [place] [address] EMPLOYEES [employer] [address] [place] [address] EMPLOYEES FAMILY [employer] FAMILY [employer] FAMILY Care Teams Electronic Assembly Relationship Specialty Start Date End Date Josse Junior MD PCP - General Family Medicine 01/17/22 Additional Source Comments The information contained in this document represents components of the legal health record. It is not the complete legal health record.[facility]
--- OUTSIDE RECORDS SUMMARY | 2025-04-20 09:35 | XMS_ITS | Clinical Summary ---
Author Organization [facility] ity Address [address] [place] [address] Care Team Providers Care Tangled Yarn Worker Name Role Phone Bernabe Smith MD Primary Care Provider [phone] Social History Tobacco Use Types Packs/Day Years [...] Depression Screening 06/09/2024 COVID-19 Vaccine ( - 2024-2 6 season) 2025 Influenza Vaccine (#1) 2025 RSV Immunization Adult Patie nts (1 - 1-dose 75+ series) 2050 HIB Vaccines Aged Out No longer eligi [...] age to complete this topic Care Teams Tangled Yarn Worker Relationship Specialty Start Date End Date Bernabe Smith MD [address] [place] [address] PCP - General 01/24/00
--- OUTSIDE RECORDS SUMMARY | 2025-04-20 09:35 | XMS_ITS | Patient Health Record ---
Author Organization [facility] Address [address] [place] [address] Care Team Providers Care Mother Superior Name Role Phone Josse Junior Primary Care Provider UnavailOlegario Mcdonald Jr Unavailable Allergies Allergen (clinical drug ingredient) Drug/Non Drug Allergy documented on EMR Reaction Allergy Type Onset Date Status bee stings (uncoded) anaphylaxis Allergy Active Reason For Referral No Information Medications Medication SIG (Take, Route, Frequency, Duration) Notes Start Date End Date Status EPINEPHrine 0.3 MG/0.3ML Injection; Duration: 2 Active Pravastatin Sodium 20mg Active PROzac 20mg Active Pantoprazole Sodium 40 mg TAKE 1 TABLET BY MOUTH ONCE DAILY; Duration: 30 Advise pt to schedule appt Active [...] Problem Status W/U Status Risk Notes Problem Colon cancer screening (868750311) Colon cancer screening (Z12.11) Active confirmed Problem Gastroesophageal reflux disease (892581869) Gastroesophageal reflux disease (K21.9) Active confirmed Problem Rectal pain (70167618) Rectal pain (K62.89) Active confirmed Problem Erosive esophagitis (91479138) Erosive esophagitis (K22.10) Active confirmed Problem Gastroesophageal reflux disease (923674762) Gastroesophageal reflux disease, unspecified whether esophagitis present (K21.9) Active confirmed Plan Of Treatment Future Test Test Name Order Date COLONOSCOPY 03/26/2012 UPPER GI ENDOSCOPY 02/20/2023 COLONOSCOPY 02/20/2023 Insurance Providers Payer Name Payer Address Payer Phone Subscriber Number Group Number Insured Name Patient Relationship to Insured Coverage Start Date Coverage End Date [employer] [address] [place] [phone] [id number] SIMONA ARGUELLO Self - patient is the insured Medical (General) History Medical History History ICD Code COPD HPV/CIN2 Nephrolithiasis Colonoscopy 03/20, normal including biop sies Surgical History Surgery Date(Month/Year) Endometrial ablation Tubal ligation multple leep & laser surgeries Tendon surgery, trigger finger release
[2025-04-20 10:49] LABS: Cholesterol 181 mg/dL (<200); HDL Cholesterol 47 mg/dL (>40); Triglycerides 194 mg/dL (<150)
== END 2025-04-20 09:01 | disposition home or self-care (01) ==
LOC: HO.LAB 09:00
PROVIDERS: PCP Nurse Practitioner Family; Visit Provider Internal Medicine Cardiovascular Disease
DX: E78.00 Pure hypercholesterolemia, unspecified (principal)
CPT/HCPCS: 36415; 80061

== ENCOUNTER 2025-05-25 13:07 | Outpatient (REF) | payer OTHER, SELFPAY ==
--- OUTSIDE RECORDS SUMMARY | 2022-08-02 12:50 | XMS_ITS | Encounter Summary ---
Author Organization [facility] Address [address] [facility] [address] [place] [phone] Phone Care Team Providers Care Durable Medical Equipment Technician Name Role Phone Josse Junior MD Primary Care Provider Encounter Details Date Type Department Care Team (Late st Contact Info) Description 08/02/2022 12:50 PM EST Hospital Encounter [facility] [address] [place] [id number] Trini Abrams FNP [address] [place] [address] [email or web address] Social History Tobacco Use Types Packs/Day [...] appropriate lab work is recommended. Trini Abrams WATER TREATMENT PLANT MECHANIC IMG XR CHEST Final Resul t documented in this encounter Visit Diagnoses Not on filedocumented in this encounter Additional Health Concerns Infection Onset Date Last Indicated Resolved Time CoV-Risk 08/02/2022 08/02/2022 08/13/2022 1:22 AM EST documented as of this encounter Care Teams Durable Medical Equipment Technician Relationship Specialty Start Date End Date Josse Junior MD PCP - General Family Medicine 01/17/22 documented as of this encounter Additional Source Comments The information contained in this document represents components of the legal health record. It is not the complete legal health record.[facility]
--- NOTE | 2025-05-25 13:15 | EMG_ITS ---
Chief complaint: History of bilateral carpal tunnel release and ulnar nerve surgery 2021. Symptoms returned 1 year after surgery. Continues to have numbness affecting 3rd-5th digits, bilateral. Reason for referral: Evaluate for Carpal Tunnel Syndrome or ulnar neuropathy versus radiculopathy Referred by: Davon STAFFORD Procedure done: Bilateral upper extremities NCS/EMG Precautions and/or limitations: None The limb temperature was monitored continuously and remained between 32-36 degrees C during the performance of the NCS. Ulnar motor NCS was performed with moderate elbow flexion between 70-90 degrees, with across-elbow distance of 10 cm. Nerve Conduction Studies Anti Sensory Summary Table ?Stim Site NR Onset (ms) Norm Onset (ms) Peak (ms) Norm Peak (ms) O-P Amp (?V) Norm O-P Amp Site1 Site2 Delta-0 (ms) Dist (cm) Ant (m/s) Norm Ant (m/s) Left Median Anti Sensory (2nd Digit) Wrist ? 2.9 3.6 <3.6 20.9 >10 Wrist 2nd Digit 2.9 14.0 48 Right Median Anti Sensory (2nd Digit) Wrist ? 3.0 3.6 <3.6 19.4 >10 Wrist 2nd Digit 3.0 14.0 47 Right Radial Anti Sensory (Thumb) Forearm ? 1.8 2.3 <3.1 11.3 Forearm Thumb 1.8 0.0 Left Ulnar Anti Sensory (5th Digit) Wrist ? 2.7 3.3 <3.7 15.6 >15.0 Wrist 5th Digit 2.7 14.0 52 Right Ulnar Anti Sensory (5th Digit) Wrist ? 2.7 3.2 <3.7 9.1 >15.0 Wrist 5th Digit 2.7 14.0 52 Motor Summary Table ?Stim Site NR Onset (ms) Norm Onset (ms) O-P Amp (mV) Norm O-P Amp iAmp (mV) Amp (1st) (%) Site1 Site2 Delta-0 (ms) Dist (cm) Ant (m/s) Norm Ant (m/s) Left Median Motor (Abd Poll Brev) Wrist ? 3.8 <3.9 7.3 >4.5 8.8 100.0 Elbow Wrist 3.3 18.5 56 >45 Elbow ? 7.1 7.2 8.5 98.6 Right Median Motor (Abd Poll Brev) Wrist ? 3.1 <3.9 10.6 >4.5 12.5 100.0 Elbow Wrist 3.7 20.0 54 >45 Elbow ? 6.8 10.2 12.3 96.2 Left Ulnar Motor (Abd Dig Minimi) Wrist ? 2.9 <3.0 7.8 >5 9.4 100.0 B Elbow Wrist 2.8 16.0 57 >45 B Elbow ? 5.7 7.8 9.4 100.0 A Elbow B Elbow 1.7 10.0 59 >45 A Elbow ? 7.4 8.0 9.8 102.6 Right Ulnar Motor (Abd Dig Minimi) Wrist ? 2.9 <3.0 9.4 >5 11.2 100.0 B Elbow Wrist 2.6 16.0 62 >45 B Elbow ? 5.5 8.9 10.8 94.7 A Elbow B Elbow 1.3 10.0 77 >45 A Elbow ? 6.8 8.6 10.5 91.5 EMG ?Side Muscle Nerve Root Ins Act Fibs Psw Amp Dur Poly Recrt Int Pat Comment Right 1stDorInt Ulnar C8-T1 Nml Nml Nml Nml Nml 0 Nml Complete Right FlexCarpiUln Ulnar C8,T1 Nml Nml Nml Nml Nml 0 Nml Complete Right Biceps Musculocut C5-6 Nml Nml Nml Nml Nml 0 Nml Complete Right Triceps Radial C6-7-8 Nml Nml Nml Nml Nml 0 Nml Complete Right Deltoid Axillary C5-6 Nml Nml Nml Nml Nml 0 Nml Complete Left 1stDorInt Ulnar C8-T1 Nml Nml Nml Nml Nml 0 Nml Complete Left FlexCarpiUln Ulnar C8,T1 Nml Nml Nml Nml Nml 0 Nml Complete Left Biceps Musculocut C5-6 Nml Nml Nml Nml Nml 0 Nml Complete Left Triceps Radial C6-7-8 Nml Nml Nml Nml Nml 0 Nml Complete Left Deltoid Axillary C5-6 Nml Nml Nml Nml Nml 0 Nml Complete Right Abd Poll Brev Median C8-T1 Nml Nml Nml Nml Nml 0 Nml Complete Paraspinal EMG ?Side Muscle Nerve Root Ins Act Fibs Psw Comment Right Cervical Upper Rami Nml Nml Nml Right Cervical Mid Rami Nml Nml Nml Right Cervical Lower Rami Nml Nml Nml Left Cervical Upper Rami Nml Nml Nml Left Cervical Mid Rami Nml Nml Nml Left Cervical Lower Rami Nml Nml Nml FINDINGS: Right median sensory nerve showed prolonged peak latency. Right ulnar sensory nerve showed small amplitude. All other nerves tested were within normal. Concentric needle EMG was performed in selected muscles of the bilateral upper extremities and cervical paraspinals. Study did not reveal signs of electric abnormalities as shown in the table above. IMPRESSION: 1. Right median sensory nerve showed mildly prolonged peak latency which could either be remnants of previous Carpal Tunnel Syndrome or a new beginning mild median neuropathy at the wrist. No signs of acute denervation seen on needle EMG today. 2. Right ulnar sensory nerve showed small amplitude. No conduction slowing or conduction block across the elbow when testing right ulnar motor nerve. 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 No signs of acute denervation seen on needle EMG today. 3. There is no electrodiagnostic evidence for brachial plexopathy or cervical radiculopathy. 4. There is no electrodiagnostic evidence of median or ulnar neuoropathy on the left. CLINICAL COMMENT: She showed me a 1 page NCS result on her phone, from 2021, done by Dr. Chicas in [place], [place], which showed prolonged distal latencies on bilateral median motor nerves. Did not show results of median sensory nerves. No conduction block seen on bilateral ulnar nerves. The results she showed me is incomplete. Cannot make appropriate comparisons with presented data. Thank you for your kind referral. Theresa Maier MD, ROSA ELENA Board Certified, [place] Board of Physical Medicine and Rehabilitation (ABPMR) Board Certified, [place] Board of Electrodiagnostic Medicine (ABEM) CODIN [phone] x 2 extremities MTDD
--- OUTSIDE RECORDS SUMMARY | 2025-05-25 17:22 | XMS_ITS | Clinical Summary ---
Author Organization [facility] Address [address] [place] [address] Care Team Providers Care Nail Professional Name Role Phone Bernabe Smith MD Primary Care Provider [phone] Social History Tobacco Use Types Packs/Day Years [...] age to complete this topic Care Teams Nail Professional Relationship Specialty Start Date End Date Bernabe Smith MD [address] [place] [address] PCP - General 01/24/00
--- OUTSIDE RECORDS SUMMARY | 2025-05-25 17:23 | XMS_ITS | Patient Health Record ---
Author Organization [facility] Address [address] [place] [address] Care Team Providers Care White Metal Corrosion Proofer Name Role Phone Josse Junior Primary Care Provider UnavailOlegario Mcdonald Jr Unavailable Allergies Allergen (clinical drug ingredient) Drug/Non Drug Allergy documented on EMR Reaction Allergy Type Onset Date Status bee stings (uncoded) anaphylaxis Allergy Active Reason For Referral No Information Medications Medication SIG (Take, Route, Frequency, Duration) Notes Start Date End Date Status EPINEPHrine 0.3 MG/0.3ML Solution Auto-injector Injection; Duration: 2 Active Pravastatin Sodium 20mg Active PROzac 20mg Active Pantoprazole Sodium 40 mg Tablet Delayed Release TAKE 1 TABLET BY MOUTH ONCE DAILY; Duration: 30 Advise pt to schedule appt Active Social History Tobacco Use: Social History Observation Description Date Details (start date - stop date) Current Smoker NA - NA Social History Drugs/Alcohol: Social Info Question Answer Notes Alcohol Screen Did you have a drink containing alcohol in the past year? Yes How often did you have a drink containing alcohol in the past year? 4 or more times a week (4 points) How many drinks did you have on a typical day when you were drinking in the past year? 3 or 4 drinks (1 point) How often did you have 6 or more drinks on one occasion in the past year? Never (0 point) Points 5 Interpretation Positive Tobacco Use: Social Info Question Answer Notes Tobacco Use/Smoking Patient is a current smoker How often do you smoke cigarettes? every day How many cigarettes a day do you smoke? 11-20 How soon after you wake up do you smoke your first cigarette? 6-30 minutes Are you interested in quitting? 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 Problems Problem Type SNOMED Code ICD Code Onset Dates Problem Status W/U Status Risk Notes Problem Colon cancer screening (838961461) Colon cancer screening (Z12.11) Active confirmed Problem Gastroesophageal reflux disease (470724767) Gastroesophageal reflux disease (K21.9) Active confirmed Problem Rectal pain (52406594) Rectal pain (K62.89) Active confirmed Problem Erosive esophagitis (66231303) Erosive esophagitis (K22.10) Active confirmed Problem Gastroesophageal reflux disease (725108398) Gastroesophageal reflux disease, unspecified whether esophagitis present (K21.9) Active confirmed Plan Of Treatment Future Test Test Name Order Date COLONOSCOPY 03/26/2012 UPPER GI ENDOSCOPY 02/20/2023 COLONOSCOPY 02/20/2023 Insurance Providers Payer Name Payer Address Payer Phone Subscriber Number Group Number Insured Name Patient Relationship to Insured Coverage Start Date Coverage End Date [employer] [address] [place] [phone] [id number] SIMONA ARGUELLO Self - patient is the insured Medical (General) History Medical History History ICD Code COPD HPV/CIN2 Nephrolithiasis Colonoscopy 03/20, normal including biop sies Surgical History Surgery Date(Month/Year) Endometrial ablation Tubal ligation multple leep & laser surgeries Tendon surgery, trigger finger release
--- OUTSIDE RECORDS SUMMARY | 2025-05-25 17:23 | XMS_ITS | Clinical Summary ---
Author Organization [facility] Address [address] [place] [address] Phone Care Team Providers Care Oral And Maxillofacial Surgery Resident Name Role Phone Josse Junior MD Primary [...] topic Medical Devices Not on file [facility] [employer] [employer] [facility] [employer] [facility] [employer] [employer] [facility] [employer] [employer] [employer] [facility] [employer] [employer] [place] [id number] Care Teams Oral And Maxillofacial Surgery Resident Relationship Specialty Start Date End Date Josse Junior MD PCP - General Family Medicine 01/17/22 Additional Source Comments The information contained in this document represents components of the legal health record. It is not the complete legal health record.[facility]
== END 2025-05-25 13:08 | disposition home or self-care (01) ==
LOC: HO.NEURO 13:07
PROVIDERS: PCP Nurse Practitioner Family; Visit Provider Physician Assistant
DX: R20.0 Anesthesia of skin (principal)
CPT/HCPCS: 95886; 95911

== ENCOUNTER → 2025-05-25 13:15 | Outpatient (BNV) | payer OTHER, SELFPAY | PROVIDERS: PCP Nurse Practitioner Family; Visit Provider Physical Medicine & Rehabilitation | DX: R20.0 Anesthesia of skin (principal) | CPT/HCPCS: 95886; 95911 ==

== ENCOUNTER 2025-06-07 13:27 | Outpatient (AMB) | payer OTHER, SELFPAY ==
--- OUTSIDE RECORDS SUMMARY | 2022-08-02 12:50 | XMS_ITS | Encounter Summary ---
Author Organization [facility] Address [address] [facility] [address] [place] [phone] Phone Care Team Providers Care Associate Professor Of Psychology Name Role Phone Josse Junior MD Primary Care Provider Encounter Details Date Type Department Care Team (Late st Contact Info) Description 08/02/2022 12:50 PM EST Hospital Encounter [facility] [address] [place] [phone] Trini Abrams FNP [address] [place] [address] [email or web address] Social History Tobacco Use Types Packs/Day [...] appropriate lab work is recommended. Trini Abrams ARBORIST IMG XR CHEST Final Resul t documented in this encounter Visit Diagnoses Not on filedocumented in this encounter Additional Health Concerns Infection Onset Date Last Indicated Resolved Time CoV-Risk 08/02/2022 08/02/2022 08/13/2022 1:22 AM EST documented as of this encounter Care Teams Associate Professor Of Psychology Relationship Specialty Start Date End Date Josse Junior MD PCP - General Family Medicine 01/17/22 documented as of this encounter Additional Source Comments The information contained in this document represents components of the legal health record. It is not the complete legal health record.[facility]
[2025-06-07 13:37] VITALS: BP 120/66; BMI 28.3
--- NOTE | 2025-06-07 13:37 | A.OFFVIS_ITS ---
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 Allergies bee pollen (Bee Stings) Allergy (Mild, Verified 06/07/25 13:38) ANAPHYLAXIS Medication List - Last Reconciled 06/07/25 by Laly Sanchez CNM albuterol sulfate 90 mcg/actuation (ProAir HFA) 2 puffs inhalation Q4-6H PRN 90 days aspirin 81 mg PO DAILY cholestyramine (Cholestyramine Light) 4 grams PO DAILY epinephrine 0.3 mL IM ONCE PRN fluoxetine 20 mg PO DAILY 90 days ipratropium-albuterol 0.5 mg-3 mg(2.5 mg base)/3 mL 3 mL inhalation Q4-6H PRN levocetirizine (Allergy Relief (levocetirizine)) 5 mg PO DAILY montelukast 10 mg PO BEDTIME nebulizer and compressor As directed pantoprazole (Protonix) 40 mg PO DAILY rosuvastatin (Crestor) 20 mg PO DAILY sodium chloride 7% 1 inh inhalation ONCE theophylline ER 200 mg PO DAILY 90 days umeclidinium-vilanterol 62.5-25 mcg/actuation (Anoro Ellipta) 1 inh inhalation Q24H 90 days Is last menstrual period known: Yes Last menstrual period: 05/24/25 [facility] 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 She is using what she can and has discussed it with other providers. She is not currently interested in seeking out hormonal therapy. She is still getting her periods she is up-to-date on her mammograms she does have a history of the abnormal Paps years so unbalanced after discussion decision made to do Pap smear today the last 2 have been negative after her previous GAVIN. 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 She has no concerns about STIs but unbalanced decided to have testing done while she was having the exam but she has no worries at all. [facility] Medical History Multiple lipomas Depression with anxiety History of uterine fibroid Bilateral arm pain Bilateral hand pain Bilateral shoulder pain Family history of thyroid cancer Family history of sleep apnea History of depression Nicotine dependence GERD (gastroesophageal reflux disease) Hypercholesterolemia Surgical History History of release of tendon History of hand surgery History of bunionectomy of both great toes History of loop electrical excision procedure (LEEP) History of endometrial ablation Hx of tubal ligation Family History Father Hx of myocardial infarction Mother Hx of thyroid cancer Hx of cancer of lung Maternal Grandmother Hx of cancer of lung Maternal Grandfather History of prostate cancer Maternal Aunt Hx of cancer of uterus Paternal Grandmother History of colon cancer Other Mental health disorder Social History Housing: House Alcohol intake: current Alcohol intake frequency: holidays/special occasions only Alcohol type: beer Patient Tobacco Use Status: Current everyday Tobacco user Tobacco use type: Cigarette Cigarette Packs Per Day: 1 Cigarettes Per Day: 12 Years Smoked: 30 e-Cigarette/Vaping Use: Never Used Second Hand Smoke Exposure: No service: Yes Current occupational status: employed 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 Current occupational exposures/hazards: No Gender identity: Female Cognitive needs: No Hearing needs: No Vision needs: No Female Reproductive History Menstrual Age of Menarche: 14 Duration of menses: 3-5 days Date of last menstrual period: 05/24/25 Total pregnancies: 2 Number of Living Children: 2 Date of last pap smear: 02/05/23 Date of Mammogram: 01/18/25 Physical Exam Vital Signs: Last Vital Signs BP 120/66 06/07/25 13:37 BMI result Body Mass Index 28.3 Const General: healthy appearing, comfortable, no acute distress, well developed and alert Nutritional Appearance: average body habitus Orientation/consciousness: patient oriented x3 Limitations: no limitations HEENT Head: Yes normocephalic Neck Neck: Yes normal visual inspection Chest Chest palpation & inspection: normal inspection of the chest Breast/axilla inspection: normal inspection of the breasts and normal inspection of the axillae Breast/axilla palpation: normal palpation of the breasts and normal palpation of the axillae Resp Effort & Inspection: normal respiratory effort GI Inspection: Yes normal to inspection, No Abdominal wall edema and No distended Palpation (GI): Soft to palpation and nontender Other: External exam within normal limits vagina is pink and moist with normal healthy appearing whitish mucus cervix multiparous deep and difficult to visualize but healthy-appearing long close thick mobile nontender uterus midposition mobile nontender patient has excellent tone with Kegel which she did involuntarily adnexa nontender. General: Yes bladder normal to palpation External Female Exam: normal external appearance and normal appearance of the urethra Speculum Exam - Vagina: normal appearance of the vagina, normal palpation and normal vaginal discharge Speculum Exam - Cervix: normal appearance of the cervix, normal palpation and nontender Bimanual exam- vagina & uterus: normal bimanual exam, normal palpation, uterine size normal, bladder normal to palpation, consistency normal, normal palpation, uterine mobility normal, uterine shape normal, No Cervical tenderness present, non-tender and no cervical motion tenderness Bimanual Exam- Adnexa, other: normal adnexae, no masses, normal and No adnexal tenderness Neuro General: patient oriented x3 Results Reviewed Results Reviewed: Name: Lisbeth Fitzgerald Age/Sex: 47/F Attending: Laly Sanchez CNM : 1975 Submitted by: Laly Sanchez CNM Copies to: MR #: [id number] Status: DEP REF Collected: 02/04/23 [facility] Received: 02/05/23 Interpretation Satisfactory for evaluation. No endocervical cells seen. Negative for intraepithelial lesion or malignancy. HPV mRNA E6/E7: NOT DETECTED This assay detects E6/E7 viral messenger RNA (mRNA) from 14 high-risk HPV types (16, 18, 31, 33, 35, 39, 45, 51, 52, 56, 58, 59, 66, 68) HPV testing performed by [facility], [place], [place]. See reference laboratory portion of the EMR for entire report. Clinical Information LMP:Ablation Previous PAP test:2020, CINI II Material Received ThinPrep-Cervical Electronically Signed By: Jaja Vega MD 02/18/23 1141 The Pap Test is a screening procedure with the inherent possibility of both false negative and false positive results. Results should be interpreted in the context of historic and current clinical findings. Reliability of the Pap Test is enhanced by performing the test on a regular repetitive basis. Patient: Lisbeth Fitzgerald Age/Sex: 47/F MR#: [id number] Page 1 of 1 Name: Lisbeth Fitzgerald Age/Sex: 47/F Attending: Laly Sanchez CNM : 1975 Submitted by: Laly Sanchez CNM Copies to: MR #: [id number] Status: DEP REF Collected: 02/04/23 [facility] Received: 02/05/23 Interpretation Satisfactory for evaluation. No endocervical cells seen. Negative for intraepithelial lesion or malignancy. HPV mRNA E6/E7: NOT DETECTED This assay detects E6/E7 viral messenger RNA (mRNA) from 14 high-risk HPV types (16, 18, 31, 33, 35, 39, 45, 51, 52, 56, 58, 59, 66, 68) HPV testing performed by [facility], [place], [place]. See reference laboratory portion of the EMR for entire report. Clinical Information LMP:Ablation Previous PAP test:2020, CINI II Material Received ThinPrep-Cervical Electronically Signed By: Jaja Vega MD 02/18/23 1141 The Pap Test is a screening procedure with the inherent possibility of both false negative and false positive results. Results should be interpreted in the context of historic and current clinical findings. Reliability of the Pap Test is enhanced by performing the test on a regular repetitive basis. Patient: Lisbeth Fitzgerald Age/Sex: 47/F MR#: [id number] Page 1 of 1 Assessment & Plan Assessment & Plan (1) Cervical cancer screening: Comment: Pap is negative with negative HPV Code(s): Z12.4 - Encounter for screening for malignant neoplasm of cervix Category: Medical (2) Nicotine dependence: Code(s): F17.200 - Nicotine dependence, unspecified, uncomplicated Category: Medical Qualifiers: Nicotine product type: cigarettes Substance use status: uncomplicated Qualified Code(s): F17.210 - Nicotine dependence, cigarettes, uncomplicated (3) Perimenopause: Code(s): N95.1 - Menopausal and female climacteric states Category: Medical (4) Well woman exam with routine gynecological exam: Code(s): Z01.419 - Encounter for gynecological examination (general) (routine) without abnormal findings Category: Medical Plan -----Discussed in this visit the following: healthy balanced diet, regular and consistent exercise, getting recommended health screens, doing the best she can for her particular health concerns, kegel exercises, pap smear screening and followup recommendations, mammography screening and SBE, normal changes in cycles in her life stage--- .---Discussed normal changes that happen premenapausally, perimenapausally, and postmenopausally, and ways to handle them. Discussed the normal variation, and the range of experiences that women experience. Discussed nutrition, health, need for exercise, both weight-bearing and aerobic. Also discussed the normal changes that happen with vaginal mucosal thinning and sensitivity, and simple more natural ways of handling these challenges. 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 She does get cramps in her legs and hips. Discussed drinking lots of water and consideration to adding magnesium. Discussed water-based lubricants and that many women also find success with coconut oil and that is in fact what she has been using with better results. Information about other resources for menopause discussions as well. Orders: Orders Bacterial Vaginosis Panel Today Z01.419 - Encounter for gynecological examination (general) (routine) without abnormal findings CT NG by PCR Vag/Cerv Today Z01.419 - Encounter for gynecological examination (general) (routine) without abnormal findings Pap Smear Today Z01.419 - Encounter for gynecological examination (general) (routine) without abnormal findings Coding Level of Care Code Est Pt Prev Care 40-64y(97207) Diagnoses Cervical cancer screening Z12.4 Cigarette nicotine dependence without complication F17.210 Nicotine product type: cigarettes Substance use status: uncomplicated Perimenopause N95.1 Well woman exam with routine gynecological exam Z01.419
--- OUTSIDE RECORDS SUMMARY | 2025-06-07 17:21 | XMS_ITS | Clinical Summary ---
Author Organization [facility] Address [address] [place] [address] Phone Care Team Providers Care Administrative Coordinator Name Role Phone Josse Junior MD Primary [...] topic Medical Devices Not on file [facility] [employer] [facility] [employer] FAM[employer] [facility] [employer] FAM[employer] [facility] [employer] FAM[employer] [facility] [employer] FAM[employer] [facility] [employer] [facility] [employer]ILY [facility] [employer] FAMILY [employer] [place] [id number] Care Teams Administrative Coordinator Relationship Specialty Start Date End Date Josse Junior MD PCP - General Family Medicine 01/17/22 Additional Source Comments The information contained in this document represents components of the legal health record. It is not the complete legal health record.[facility]
--- OUTSIDE RECORDS SUMMARY | 2025-06-07 17:21 | XMS_ITS | Clinical Summary ---
Author Organization [facility] ity Address [address] [place] [address] Care Team Providers Care Rag Inspector Name Role Phone Bernabe Smith MD Primary Care Provider [phone] Social History Tobacco Use Types Packs/Day Years [...] age to complete this topic Care Teams Rag Inspector Relationship Specialty Start Date End Date Bernabe Smith MD [address] [place] [address] PCP - General 01/24/00
--- OUTSIDE RECORDS SUMMARY | 2025-06-07 17:21 | XMS_ITS | Patient Health Record ---
Author Organization [facility] Address [address] [place] [id number] Care Team Providers Care Cad Administrator Name Role Phone Josse Junior Primary Care Provider UnavailOlegario Mcdonald Jr Unavailable [phone] Allergies Allergen (clinical drug ingredient) Drug/Non Drug [...] Status Risk Notes Problem Colon cancer screening (711534375) Colon cancer screening (Z12.11) Active confirmed Problem Gastroesophageal reflux disease (902615403) Gastroesophageal reflux disease (K21.9) Active confirmed Problem Rectal pain (73479805) Rectal pain (K62.89) Active confirmed Problem Erosive esophagitis (10538487) Erosive esophagitis (K22.10) Active confirmed Problem Gastroesophageal reflux disease (542161393) Gastroesophageal reflux disease, unspecified whether esophagitis present (K21.9) Active confirmed Plan Of Treatment Future Test Test Name Order Date COLONOSCOPY 03/26/2012 UPPER GI ENDOSCOPY 02/20/2023 COLONOSCOPY 02/20/2023 Insurance Providers Payer Name Payer Address Payer Phone Subscriber Number Group Number Insured Name Patient Relationship to Insured Coverage Start Date Coverage End Date [employer] [address] [place] [phone] [id number] SIMONA ARGUELLO Self - patient is the insured Medical (General) History Medical History History ICD Code COPD HPV/CIN2 Nephrolithiasis Colonoscopy 03/20, normal including biop sies Surgical History Surgery Date(Month/Year) Endometrial ablation Tubal ligation multple leep & laser surgeries Tendon surgery, trigger finger release
== END 2025-06-07 15:19 | disposition home or self-care (01) ==
LOC: HO.HWSM 13:27
PROVIDERS: PCP Nurse Practitioner Family; Visit Provider Advanced Practice Midwife
DX: Z01.419 Encounter for gynecological examination (general) (routine) without abnormal findings (principal); Z12.4 Encounter for screening for malignant neoplasm of cervix; F17.210 Nicotine dependence, cigarettes, uncomplicated; N95.1 Menopausal and female climacteric states
CPT/HCPCS: 99396; 99459

== ENCOUNTER 2025-06-07 13:27 | Outpatient (REF) | payer OTHER, SELFPAY ==
[2025-06-07 22:32] LABS: Bacterial Vaginosis PCR NEGATIVE (Negative); Candida Group PCR NOT DETECTED (Not Detect); Candida glab krusei PCR NOT DETECTED (Not Detect); Trichomonas vaginalis PCR NOT DETECTED (Not Detect)
[2025-06-07 23:03] LABS: CT PCR NOT DETECTED (Not Detect.); NG PCR NOT DETECTED (Not Detect.)
== END 2025-06-07 13:28 ==
LOC: HO.LNP 13:27
PROVIDERS: PCP Nurse Practitioner Family; Visit Provider Advanced Practice Midwife
DX: Z01.419 Encounter for gynecological examination (general) (routine) without abnormal findings (principal); N95.1 Menopausal and female climacteric states; F17.210 Nicotine dependence, cigarettes, uncomplicated; Z20.2 Contact with and (suspected) exposure to infections with a predominantly sexual mode of transmission
CPT/HCPCS: 81515; 87491; 87591; 87626; 88175